=== PATIENT | female | born 1950 | race Caucasian/White ===

== ENCOUNTER 2017-03-18 14:51 | Inpatient (IN) | payer OTHER ==
[~2017-03-18] VITALS: Ht 165.1 cm; Wt 56.2 kg
[~2017-03-18 14:51] MED LIST: BUSP15TA70 PO; CLON1TAB3 PO; DULO60CA44 PO; VALA500T39 PO; WARF7.5T PO
[2017-03-18] MEDS ORDERED: ASPIRIN 81 MG CHEW PO STA (15:07)
[2017-03-18] MEDS ORDERED: DILTIAZEM BOLUS / DRIP IV STA (15:12)
[2017-03-18 15:23] LABS: BASO % 0.4 %; BASO ABS # 0.03 K/uL (0-0.2); COMPLETE YES; EOS % 0.7 %; HEMATOCRIT 46.1 % (37-47); IG% 0.1 %; LYMPH % 47.6 %; LYMPH ABS # 3.25 K/uL (1.2-3.4); MEAN CELL VOLUME 92.2 fL (80-100); MEAN CORPUSCULAR HEMOGLOBIN 32.8 pg (25-34); MEAN CORPUSCULAR HGB CONC 35.6 g/dl (32-36); MEAN PLATELET VOLUME 10.7 fL (7.4-10.4); MONO % 6.9 %; NEUT % 44.3 %; PLATELET COUNT 228 K/uL (130-400); WHITE BLOOD COUNT 6.83 K/uL (4.8-10.8)
[2017-03-18] MEDS ORDERED: DILTIAZEM HCL 5 MG/ML 5 ML VIAL IV ONE (15:30)
[2017-03-18] MEDS ORDERED: DILTIAZEM HCL INJ 125 MG in DEXTROSE 5% 100ML IV PRN (15:30)
[2017-03-18 15:32] LABS: INR 2.2 (0.9-1.1); PROTHROMBIN TIME (PATIENT) 24.8 SECONDS (9.0-12.0)
[2017-03-18] MEDS ORDERED: NRN300 PO (15:32)
[2017-03-18] MEDS ORDERED: FENTANYL CITRATE INJ 50 MCG/1 ML 2 ML VIAL IV STA (15:38)
[2017-03-18 15:39] LABS: BLOOD UREA NITROGEN 10 mg/dl (7-18); BUN/CREATININE RATIO 10.1 (10-20); CALCIUM 9.4 mg/dl (8.5-10.1); CARBON DIOXIDE 23 mmol/L (21-32); CHLORIDE 106 mmol/L (98-107); CREATININE 0.96 mg/dl (0.60-1.20); GLUCOSE 119 mg/dl (70-99); POTASSIUM 3.8 mmol/L (3.5-5.1); SODIUM 141 mmol/L (136-145)
--- NOTE | 2017-03-18 15:47 | DIAGNOSTIC IMAGING REPORT ---
CHEST ONE VIEW PORTABLE HISTORY: 66 years-old Female Chest Pain COMPARISON: Portable chest radiograph 11/14/2009 TECHNIQUE: Portable upright AP view of the chest FINDINGS: Cardiomediastinal and hilar silhouettes are within normal limits. There is mild biapical pleural parenchymal scarring without pneumothorax, pleural effusion or focal airspace consolidation. There is no overt pulmonary edema. Lungs are mildly hyperinflated The bones are grossly intact. IMPRESSION: Mild hyperinflation without acute cardiopulmonary process. The above report was generated using voice recognition software. It may contain grammatical, syntax or spelling errors. Electronically signed by: Keo Grant M.D. 03/18/2017 3:46 PM Dictated Date/Time: 03/18/2017 3:45 PM
[2017-03-18] MEDS ORDERED: NITROGLYCERIN 0.4 MG SL PER TAB CHARGE SL PRN ×2 (16:00→18:45)
[2017-03-18] MEDS ORDERED: OPTIRAY 320 IV PRN (16:30)
--- NOTE | 2017-03-18 16:40 | DIAGNOSTIC IMAGING REPORT ---
CT SCAN OF THE BRAIN WITHOUT IV CONTRAST CLINICAL HISTORY: Headache. COMPARISON STUDY: CT of the brain dated 11/17/2008. TECHNIQUE: Unenhanced axial CT scan of the brain is performed from the vertex to the skull base. CT DOSE: 537.48 mGy.cm FINDINGS: Brain parenchyma: There is minimal subcortical and periventricular microangiopathic change. There is no hemorrhage, mass effect, or evidence of acute territorial ischemia by CT criteria. Ren-white matter is preserved. No extra-axial fluid collection is seen. Ventricles, sulci, cisterns: Prominent secondary to involutional change. Intracranial vasculature: There is atherosclerotic calcification of the cavernous carotid arteries. Calvarium: Unremarkable. Sinuses and mastoids: The visualized paranasal sinuses are clear. The mastoid air cells are well pneumatized. Orbits: The bony orbits are grossly intact. IMPRESSION: There is no hemorrhage, mass effect, or evidence of acute territorial ischemia by CT criteria. Electronically signed by: David Ramos M.D. 03/18/2017 4:39 PM Dictated Date/Time: 03/18/2017 4:37 PM
--- NOTE | 2017-03-18 16:57 | DIAGNOSTIC IMAGING REPORT ---
CT ANGIOGRAM OF THE CHEST COMBO CLINICAL HISTORY: Tachycardia. COMPARISON STUDY: Chest x-ray dated 03/18/2017. Chest CT dated 05/15/2009. TECHNIQUE: Before and following the IV administration of 119 cc of Optiray 320, CT angiogram of the chest was performed from the thoracic inlet to the upper abdomen utilizing the dissection protocol. Images are reviewed in the axial, sagittal, and coronal planes. 3-D MIPS images are created and assessed. IV contrast was administered without complication. A dose lowering technique was utilized adhering to the principles of ALARA. CT DOSE: 476.92 mGy.cm FINDINGS: Thyroid: Imaged portions of the thyroid gland are normal in size and attenuation. Thoracic aorta: No intramural hematoma is seen on the unenhanced series. The thoracic aorta is normal in caliber and demonstrates standard 3-vessel arch anatomy. No dissection is seen. The arch vessels are widely patent. Pulmonary vasculature: The pulmonary trunk is normal in caliber. There are no filling defects identified in the main, lobar, or segmental pulmonary vessels to suggest pulmonary embolus. Heart: The heart is normal in size and configuration, and without pericardial effusion. Lungs and pleural spaces: There is biapical scarring. No airspace consolidation is seen typical for pneumonia. Trace pleural effusion is seen on the right. Small fat-containing Bochdalek hernias are identified. Foci of atelectasis versus scarring are seen in the lower lungs. A 4 mm pulmonary nodule is seen in the right upper lobe on image #89. This has been present dating back to 2008 and is of doubtful significance. Nodularity in the right mainstem bronchus likely represents secretions. The trachea and central airways are otherwise clear. Mediastinum: There is no mediastinal lymphadenopathy. Vera: Clear. Axillae: There is no axillary lymphadenopathy. Upper abdomen: Small hepatic cysts measure up to 13 mm. Partially visualized upper abdominal viscera is otherwise within normal limits. Skeletal structures: The skeletal structures are osteopenic. Arthritic change is present in the shoulders and thoracic spine. No lytic or blastic bony lesions are seen. IMPRESSION: 1. There is no aneurysm or dissection identified involving the thoracic aorta. 2. There is no evidence of pulmonary embolus in the main, lobar, or segmental pulmonary arteries. 3. There is no airspace consolidation typical for pneumonia. 4. Trace pleural fluid is seen at the right lung base. 5. Additional findings as above. Electronically signed by: David Ramos M.D. 03/18/2017 4:55 PM Dictated Date/Time: 03/18/2017 4:41 PM
[2017-03-18] MEDS ORDERED: ACETAMINOPHEN 325 MG TAB PO PRN (18:45)
[2017-03-18] MEDS ORDERED: ONDANSETRON INJ 2 MG/ML 2 ML VIAL IV PRN (18:45)
[2017-03-18] MEDS ORDERED: TIZA4CAP PO (18:52)
[2017-03-18] MEDS ORDERED: CETI10TA84 PO (18:52)
[2017-03-18] MEDS ORDERED: CYM/30 PO (18:52)
[2017-03-18] MEDS ORDERED: KLN5 PO (18:52)
[2017-03-18] MEDS ORDERED: ZNTT/150 PO (18:52)
[2017-03-18] MEDS ORDERED: KLN1X PO (18:52)
[2017-03-18] MEDS ORDERED: PRMVC PV (18:52)
[2017-03-18] MEDS ORDERED: CETIRIZINE HCL 10 MG TAB PO PRN (19:30)
[2017-03-18] MEDS ORDERED: RANITIDINE HCL 150 MG TAB PO PRN (19:30)
[2017-03-18] MEDS ORDERED: TRAMADOL HCL 50 MG TAB PO PRN (19:30)
[2017-03-18] MEDS ORDERED: GABAPENTIN 300 MG CAP PO ONE (20:00)
[2017-03-18 20:07] VITALS: BP 103/67; PULSE 66; TEMP 37; O2SAT 99; Ht 165.1 cm; Wt 56.2 kg
--- NOTE | 2017-03-18 20:11 | EMERGENCY ROOM VISIT NOTE ---
History Report prepared by Adamibdarwin: Edgard Narayanan Under the Supervision of: Dr. Abdiel Ford D.O. First contact with patient: 14:59 Chief Complaint: CARDIAC ASSESSMENT Stated Complaint: RACING HEART, FEEL LIKE GOING TO PASS OUT Nursing Triage Summary: Pt c/o headache, tightness in her neck and jaw, heart racing (history of tachycardia per patient), she feels hot and sweaty at times, timgly in both arms "and I feel scared". When asked where her headache was she states "in my neck into the back of my head and into my face". Pt states symptoms x 2 days, but worse today. States she only had coffee today and nothing else to eat or drink. Hx anxiety "but this feels different". History of Present Illness The patient is a 66 year old female who presents to the Emergency Room with complaints of intermittent crushing chest pain that began yesterday. She rates her discomfort as a 10/10 in severity. The patient states that she woke up this morning around 0730 with chest pain, shortness of breath, tachycardia, lightheadedness, a cold sensation in her face, a sore throat, neck pain, and a pounding headache. The patient describes her pain as a shooting pain from her head to her neck. She states that she typically has tachycardia intermittently, which was diagnosed by her PCP Dr. Larios, but states that the chest pain is not normal. The patient states that she took Tylenol and slept for an hour, but the symptoms persisted. She reports that she has a history of blood clots, which she takes Coumadin for. Source of History: patient Onset: yesterday Position: chest Symptom Intensity: Quality: other (crushing) Timing: intermittent Associated Symptoms: + headache, + sorethroat, + neck pain, + SOB Review of Systems See HPI for pertinent positives & negatives. A total of 10 systems reviewed and were otherwise negative. Past Medical & Surgical Medical Problems: (1) Atrial fibrillation with RVR (2) Bronchitis (3) Chest pain (4) History of blood clots (5) Hypotension (6) Pneumonia Family History FH: heart disease Hypertension Social History Smoking Status: Current Every Day Smoker Alcohol Use: none Drug Use: none Marital Status: single Housing Status: lives with family Occupation Status: unemployed Current/Historical Medications Scheduled Buspirone Hcl (Buspar), 15 MG PO BID Clonazepam (Clonazepam), 0.5 MG PO QAM Clonazepam (Clonazepam), 1 MG PO HS Duloxetine HCl (Cymbalta), 30 MG PO BID Estrogens, Conjugated (Premarin), 2 GM PV UD Gabapentin (Gabapentin), 300 MG PO TID Valacyclovir Hcl (Valtrex), 500 MG PO DAILY Warfarin Sodium (Coumadin), 7.5 MG PO [id number] Warfarin Sodium (Coumadin), 0.5 TAB PO WK Scheduled PRN Cetirizine (Zyrtec), 10 MG PO DAILY PRN for allergies Ranitidine (Zantac), 150 MG PO DAILY PRN for Dyspepsia Tizanidine (Zanaflex), 4 MG PO Q8 PRN for Muscle Spasms Allergies Coded Allergies: Tetanus Toxoid (Verified Allergy, Unknown, "SWELLING", 03/18/17) Meperidine (Verified Adverse Reaction, Intermediate, ITCHING, 03/18/17) Morphine (Verified Adverse Reaction, Intermediate, ITCHING, 03/18/17) Quetiapine (Verified Adverse Reaction, Unknown, Symptoms worsen, 03/18/17) Risperidone (Verified Adverse Reaction, Unknown, Symptoms worsen, 03/18/17) Physical Exam Vital Signs Date Time Temp Pulse Resp B/P (MAP) Pulse Ox O2 Delivery O2 Flow Rate FiO2 03/18/17 18:02 59 22 111/65 98 Room Air 03/18/17 17:00 58 18 116/76 98 Room Air 03/18/17 15:10 108 20 109/77 100 Room Air 03/18/17 15:03 137 03/18/17 15:02 98 Room Air 03/18/17 14:54 36.2 84 87/52 Physical Exam GENERAL: sitting up in bed, disheveled, holding chest, ill-appearing EYE EXAM: normal conjunctiva, PERRL and EOM's grossly intact OROPHARYNX: no exudate, no erythema, lips, buccal mucosa, and tongue normal and mucous membranes are moist NECK: supple, no nuchal rigidity, no adenopathy, non-tender LUNGS: Clear to auscultation. Normal chest wall mechanics HEART: Tachycardic. Irregularly irregular. no murmurs, S1 normal and S2 normal ABDOMEN: abdomen soft, non-tender, normo-active bowel sounds, no masses, no rebound or guarding. BACK: Back is symmetrical on inspection and there is no deformity, no midline tenderness, no CVA tenderness. SKIN: no rashes and no bruising UPPER EXTREMITIES: upper extremities are grossly normal. Radial pulses are equal bilaterally LOWER EXTREMITIES: No pitting edema. Calves are equal bilaterally. NEURO EXAM: Normal sensorium, cranial nerves II-XII grossly intact, normal speech, no gross weakness of arms, no gross weakness of legs. Gross sensation intact. Medical Decision & Procedures ER Provider Diagnostic Interpretation: Radiology results as stated below per my review and the radiologist's interpretation: CHEST ONE VIEW PORTABLE HISTORY: 66 years-old Female Chest Pain COMPARISON: Portable chest radiograph 11/14/2009 TECHNIQUE: Portable upright AP view of the chest FINDINGS: Cardiomediastinal and hilar silhouettes are within normal limits. There is mild biapical pleural parenchymal scarring without pneumothorax, pleural effusion or focal airspace consolidation. There is no overt pulmonary edema. Lungs are mildly hyperinflated The bones are grossly intact. IMPRESSION: Mild hyperinflation without acute cardiopulmonary process. The above report was generated using voice recognition software. It may contain grammatical, syntax or spelling errors. Electronically signed by: Keo Grant M.D. 03/18/2017 3:46 PM Dictated Date/Time: 03/18/2017 3:[address] SCAN OF THE BRAIN WITHOUT IV CONTRAST CLINICAL HISTORY: Headache. COMPARISON STUDY: CT of the brain dated 11/17/2008. TECHNIQUE: Unenhanced axial CT scan of the brain is performed from the vertex to the skull base. CT DOSE: 537.48 mGy.cm FINDINGS: Brain parenchyma: There is minimal subcortical and periventricular microangiopathic change. There is no hemorrhage, mass effect, or evidence of acute territorial ischemia by CT criteria. Ren-white matter is preserved. No extra-axial fluid collection is seen. Ventricles, sulci, cisterns: Prominent secondary to involutional change. Intracranial vasculature: There is atherosclerotic calcification of the cavernous carotid arteries. Calvarium: Unremarkable. Sinuses and mastoids: The visualized paranasal sinuses are clear. The mastoid air cells are well pneumatized. Orbits: The bony orbits are grossly intact. IMPRESSION: There is no hemorrhage, mass effect, or evidence of acute territorial ischemia by CT criteria. Electronically signed by: David Ramos M.D. 03/18/2017 4:39 PM Dictated Date/Time: 03/18/2017 4:[address] ANGIOGRAM OF THE CHEST COMBO CLINICAL HISTORY: Tachycardia. COMPARISON STUDY: Chest x-ray dated 03/18/2017. Chest CT dated 05/15/2009. TECHNIQUE: Before and following the IV administration of 119 cc of Optiray 320, CT angiogram of the chest was performed from the thoracic inlet to the upper abdomen utilizing the dissection protocol. Images are reviewed in the axial, sagittal, and coronal planes. 3-D MIPS images are created and assessed. IV contrast was administered without complication. A dose lowering technique was utilized adhering to the principles of ALARA. CT DOSE: 476.92 mGy.cm FINDINGS: Thyroid: Imaged portions of the thyroid gland are normal in size and attenuation. Thoracic aorta: No intramural hematoma is seen on the unenhanced series. The thoracic aorta is normal in caliber and demonstrates standard 3-vessel arch anatomy. No dissection is seen. The arch vessels are widely patent. Pulmonary vasculature: The pulmonary trunk is normal in caliber. There are no filling defects identified in the main, lobar, or segmental pulmonary vessels to suggest pulmonary embolus. Heart: The heart is normal in size and configuration, and without pericardial effusion. Lungs and pleural spaces: There is biapical scarring. No airspace consolidation is seen typical for pneumonia. Trace pleural effusion is seen on the right. Small fat-containing Bochdalek hernias are identified. Foci of atelectasis versus scarring are seen in the lower lungs. A 4 mm pulmonary nodule is seen in the right upper lobe on image #89. This has been present dating back to 2008 and is of doubtful significance. Nodularity in the right mainstem bronchus likely represents secretions. The trachea and central airways are otherwise clear. Mediastinum: There is no mediastinal lymphadenopathy. Vera: Clear. Axillae: There is no axillary lymphadenopathy. Upper abdomen: Small hepatic cysts measure up to 13 mm. Partially visualized upper abdominal viscera is otherwise within normal limits. Skeletal structures: The skeletal structures are osteopenic. Arthritic change is present in the shoulders and thoracic spine. No lytic or blastic bony lesions are seen. IMPRESSION: 1. There is no aneurysm or dissection identified involving the thoracic aorta. 2. There is no evidence of pulmonary embolus in the main, lobar, or segmental pulmonary arteries. 3. There is no airspace consolidation typical for pneumonia. 4. Trace pleural fluid is seen at the right lung base. 5. Additional findings as above. Electronically signed by: David Ramos M.D. 03/18/2017 4:55 PM Dictated Date/Time: 03/18/2017 4:41 PM Laboratory Results 03/18/17 15:10 Red Blood Count 5.00, Mean Corpuscular Volume 92.2, Mean Corpuscular Hemoglobin 32.8, Mean Corpuscular Hemoglobin Concent 35.6, Mean Platelet Volume 10.7, Neutrophils (%) (Auto) 44.3, Lymphocytes (%) (Auto) 47.6, Monocytes (%) (Auto) 6.9, Eosinophils (%) (Auto) 0.7, Basophils (%) (Auto) 0.4, Neutrophils # (Auto) 3.02, Lymphocytes # (Auto) 3.25, Monocytes # (Auto) 0.47, Eosinophils # (Auto) 0.05, Basophils # (Auto) 0.03 03/18/17 15:10 Test 03/18/17 15:10 03/18/17 15:14 White Blood Count 6.83 K/uL (4.8-10.8) Red Blood Count 5.00 M/uL (4.2-5.4) Hemoglobin 16.4 g/dL (12.0-16.0) Hematocrit 46.1 % (37-47) Mean Corpuscular Volume 92.2 fL (80-100) Mean Corpuscular Hemoglobin 32.8 pg (25-34) Mean Corpuscular Hemoglobin Concent 35.6 g/dl (32-36) Platelet Count 228 K/uL (130-400) Mean Platelet Volume 10.7 fL (7.4-10.4) Neutrophils (%) (Auto) 44.3 % Lymphocytes (%) (Auto) 47.6 % Monocytes (%) (Auto) 6.9 % Eosinophils (%) (Auto) 0.7 % Basophils (%) (Auto) 0.4 % Neutrophils # (Auto) 3.02 K/uL (1.4-6.5) Lymphocytes # (Auto) 3.25 K/uL (1.2-3.4) Monocytes # (Auto) 0.47 K/uL (0.11-0.59) Eosinophils # (Auto) 0.05 K/uL (0-0.5) Basophils # (Auto) 0.03 K/uL (0-0.2) RDW Standard Deviation 41.8 fL (36.4-46.3) RDW Coefficient of Variation 12.4 % (11.5-14.5) Immature Granulocyte % (Auto) 0.1 % Immature Granulocyte # (Auto) 0.01 K/uL (0.00-0.02) Prothrombin Time 24.8 SECONDS (9.0-12.0) Prothromb Time International Ratio 2.2 (0.9-1.1) Anion Gap 12.0 mmol/L (3-11) Est Creatinine Clear Calc Drug Dose 50.1 ml/min Estimated GFR () 71.4 Estimated GFR (Non- 61.6 BUN/Creatinine Ratio 10.1 (10-20) Calcium Level 9.4 mg/dl (8.5-10.1) Total Creatine Kinase 105 U/L (26-192) Creatine Kinase MB 1.0 ng/ml (0.5-3.6) Creatine Kinase MB Ratio 1.0 (0-3.0) Troponin I < 0.015 ng/ml (0-0.045) Thyroid Stimulating Hormone (TSH) 1.810 uIu/ml (0.300-4.500) Bedside Troponin I < 0.030 ng/ml (0-0.045) Laboratory results per my review. Medications Administered Medications (Trade) Dose Ordered Sig/Dequan Route Start Time Stop Time Status Last Admin Dose Admin Aspirin (Aspirin Chew) 324 mg NOW STAT PO 03/18/17 15:07 03/18/17 15:08 DC 03/18/17 15:18 324 MG Fentanyl Citrate (Fentanyl Inj) 25 mcg NOW STAT IV 03/18/17 15:38 03/18/17 15:39 DC 03/18/17 15:53 25 MCG Nitroglycerin (Nitrostat Tab) 0.4 mg Q5M PRN SL 03/18/17 16:00 03/18/17 19:47 DC 03/18/17 17:15 0.4 MG ECG Indication: chest pain Rate (beats per minute): 122 Rhythm: atrial fibrillation Findings: nonspecific-ST abn (Inferior), Q waves (Septal), ST elevation (V2), other (RBR ) Change: Repeat EKG shows Atrial Fibrillation with a rate of 115. There was RBR, an inferior ST abnormality, and septal q waves present. The T elevation was improved. ED Course ED COURSE: Vital signs were reviewed and showed hypotensive, tachycardic The patients medical record was reviewed The above diagnostic studies were performed and reviewed. ED treatments and interventions as stated above. 1502: The patient was evaluated in room B11. A complete history and physical examination was performed. 1507: Aspirin 324 mg PO. 1512: Diltiazem HCl 1 each IV. 1530: Diltiazem HCl 125 mg/Dextrose 125 ml @ 0 mls/hr IV, diltiazem HCl 10 mg IV. 1531: I discussed the patient's case with Dr. Huntley, Cardiology [facility]. He checked the patient's EKGs and recommends an echo. 1538: Fentanyl Injection 25 mcg IV. 1600: Nitroglycerin 0.4 mg SL. 1621: I reevaluated the patient and she is resting comfortably. 1708: I discussed the patient's case with Dr. Kc, [facility] Aviation Medicine Specialist. He understands that patient's condition and agrees to accept the patient. The patient will be further evaluated. Medical Decision Differential diagnoses includes but is not limited to acute coronary syndrome, myocardial infarction, pericarditis, pulmonary embolus, aortic dissection, pneumonia, pneumothorax, musculoskeletal, shingles, esophageal. Medication Reconciliation: I attest that I have personally reviewed the patient' s current medication list. Blood pressure screening: Patient was found to have normal blood pressure on screening and does not require follow-up. Patient is a 66-year-old female who presents the ER for chest pain associated with shortness of breath and a headache. Upon evaluation systolic blood pressures in the 70s. Her heart rates in the 150s. EKG shows A. fib with RVR with mild ST elevation in the septal leads. Fluids were given. Heart return done to low 100s. Systolic blood pressures improved to 110. She is given nitroglycerin with significant improvement of her pain. She was not given Cardizem. I discussed her case with interventional cardiology. They note that this is probably rate related. INR was therapeutic. CT dissection was performed and unremarkable. Troponin was negative. EKG improved significantly as the rate improved. She was monitored closely. She was admitted to internal medicine. Just prior to admission patient converted to normal sinus rhythm. She was feeling significantly better. Medication Reconcilliation Current Medication List: was personally reviewed by me Blood Pressure Screening Patient's blood pressure: Normal blood pressure Consults Time Called: 170 Consulting Physician: Esha Dickey Aviation Medicine Specialist Returned Call: [phone] I discussed the patient's case with Esha Dickey Aviation Medicine Specialist. He understands that patient's condition and agrees to accept the patient. The patient will be further evaluated. Additional Consults: Time Called: 1530 Consulted Physician: Dr. Huntley, Cardiology [facility] Returned Call: [phone] Additional Comments: I discussed the patient's case with Dr. Huntley, Cardiology [facility]. He checked the patient's EKGs and recommends an echo. Impression Primary Impression: Atrial fibrillation with RVR Additional Impressions: Hypotension Precordial chest pain Critical Care I have personally spent 35 minutes of critical care time in the direct management of this patient. This includes bedside care, interpretation of diagnostic studies, and testing, discussion with consultants, patient, and family members, and other required patient management activities. This 35 minutes is in excess of all separately billable procedures. Scribe Attestation The scribe's documentation has been prepared under my direction and personally reviewed by me in its entirety. I confirm that the note above accurately reflects all work, treatment, procedures, and medical decision making performed by me. Departure Information Dispostion Being Evaluated By Hospitalist Referrals Danita Robledo D.O. (PCP) Patient Instructions My [facility] Problem Qualifiers Additional Impressions: Hypotension Hypotension type: unspecified hypotension type Qualified Codes: I95.9 - Hypotension, unspecified
[2017-03-18] MEDS: BusPIRone 15 MG TAB PO SCH (20:32)
[2017-03-18] MEDS: DULOXETINE (CYMBALTA) 30 MG CAP PO SCH (20:32)
[2017-03-18] MEDS ORDERED: CLONAZEPAM 1 MG TAB PO SCH (21:00)
[2017-03-18 23:28] VITALS: BP 93/54; PULSE 59; TEMP 36.6; O2SAT 97
--- NOTE | 2017-03-18 23:55 | History and Physical ---
History & Physical Date & Time of Service: Mar 18, 2017 at 19:37 Chief Complaint: Racing Heart, Feel Like Going To Pass Out Primary Care Physician: Danita Robledo D.O. History of Present Illness Source: patient, clinic records This is a 66 y/o female with PMH of PE on Coumadin, s/p IVC filter, anxiety, tobacco abuse, and other problems listed below who presented to the ED with headache, chest pain, and palpitations. Patient reports chronic migraines and neck spasms which are more intense over past few weeks. She used to take Fioricet but it no longer works for her. Over past few days she was mostly resting and not eating much due to migraine. She reports a hx of "tachycardia" with intermittent palpitations for years, however palpitations were more severe over the past few days and felt different than usual. She states yesterday she had substernal chest pressure for most of the day. Pain was not related to exertion. Then this morning she was in severe pain from migraine/ neck spasms, so at 7 am drank coffee and took 2 extra strength Tylenol and tizanidine. Did not eat breakfast due to poor appetite. She took a nap for one hour then awoke with substernal chest pressure radiating to her anterior neck and "pounding" palpitations. There was associated diaphoresis, shortness of breath, mild lightheadedness, tingling in both arms. Patient drove herself to the ER, where she was found to be in Afib with RVR, then spontaneously converted to NSR. She was initially hypotensive to which resolved with 2 liters IVF's. Pt states the chest pain resolved before she was given nitro. She was also treated with aspirin 324 mg. Currently the headache is improving after eating dinner in the ER. She denies syncope, ACOSTA with climbing stairs, edema, or calf pain. No hx of CAD. Had neg stress test in 2007. No known hx of atrial fibrillation. Past Medical/Surgical History Medical Problems: (1) Anxiety Status: Chronic (2) Depression Status: Chronic (3) Pulmonary embolism Status: Chronic Surgical Problems: (1) S/P IVC filter Status: Chronic Family History FH: heart disease Hypertension Social History Smoking Status: Current Every Day Smoker (0.75 ppd) Alcohol Use: none Drug Use: none Marital Status: single Housing status: lives alone Occupational Status: unemployed Immunizations History of Influenza Vaccine: Yes History of Tetanus Vaccine?: Yes History of Pneumococcal: No History of Hepatitis B Vaccine: No Multi-Drug Resistant Organisms History of MDRO: No Allergies Coded Allergies: Tetanus Toxoid (Verified Allergy, Unknown, "SWELLING", 03/18/17) Meperidine (Verified Adverse Reaction, Intermediate, ITCHING, 03/18/17) Morphine (Verified Adverse Reaction, Intermediate, ITCHING, 03/18/17) Quetiapine (Verified Adverse Reaction, Unknown, Symptoms worsen, 03/18/17) Risperidone (Verified Adverse Reaction, Unknown, Symptoms worsen, 03/18/17) Home Medications Scheduled Buspirone Hcl (Buspar), 15 MG PO BID Clonazepam (Clonazepam), 0.5 MG PO QAM Clonazepam (Clonazepam), 1 MG PO HS Duloxetine HCl (Cymbalta), 30 MG PO BID Estrogens, Conjugated (Premarin), 2 GM PV UD Gabapentin (Gabapentin), 300 MG PO TID Valacyclovir Hcl (Valtrex), 500 MG PO DAILY Warfarin Sodium (Coumadin), 7.5 MG PO 6XWK Warfarin Sodium (Coumadin), 0.5 TAB PO WK Scheduled PRN Cetirizine (Zyrtec), 10 MG PO DAILY PRN for allergies Ranitidine (Zantac), 150 MG PO DAILY PRN for Dyspepsia Tizanidine (Zanaflex), 4 MG PO Q8 PRN for Muscle Spasms Review of Systems Ten systems reviewed and negative except as noted in HPI. Physical Exam Vital Signs Date Time Temp Pulse Resp B/P (MAP) Pulse Ox O2 Delivery O2 Flow Rate FiO2 03/18/17 18:59 67 18 98 03/18/17 18:02 59 22 111/65 98 Room Air 03/18/17 17:00 58 18 116/76 98 Room Air 03/18/17 15:10 108 20 109/77 100 Room Air 03/18/17 15:03 137 03/18/17 15:02 98 Room Air 03/18/17 14:54 36.2 84 87/52 General Appearance: WD/WN, no apparent distress, + pertinent finding (alert 66 y/o female, sitting up in bed eating dinner tray, no distress) Head: normocephalic, atraumatic Eyes: normal inspection, PERRL, EOMI, sclerae normal ENT: hearing grossly normal, pharynx normal Neck: supple, trachea midline Respiratory/Chest: lungs clear, normal breath sounds, no respiratory distress, no accessory muscle use Cardiovascular: regular rate, rhythm, no murmur Abdomen/GI: normal bowel sounds, non tender, soft Extremities/Musculoskelatal: no calf tenderness, no pedal edema Neurologic/Psych: alert, normal mood/affect, oriented x 3, + pertinent finding (no focal deficit on gross examination) Skin: normal color, warm/dry Diagnostics Laboratory Results Results Past 24 Hours Test 03/18/17 15:10 03/18/17 15:14 Range/Units White Blood Count 6.83 4.8-10.8 K/uL Red Blood Count 5.00 4.2-5.4 M/uL Hemoglobin 16.4 12.0-16.0 g/dL Hematocrit 46.1 37-47 % Mean Corpuscular Volume 92.2 80-100 fL Mean Corpuscular Hemoglobin 32.8 25-34 pg Mean Corpuscular Hemoglobin Concent 35.6 32-36 g/dl Platelet Count 228 130-400 K/uL Mean Platelet Volume 10.7 7.4-10.4 fL Neutrophils (%) (Auto) 44.3 % Lymphocytes (%) (Auto) 47.6 % Monocytes (%) (Auto) 6.9 % Eosinophils (%) (Auto) 0.7 % Basophils (%) (Auto) 0.4 % Neutrophils # (Auto) 3.02 1.4-6.5 K/uL Lymphocytes # (Auto) 3.25 1.2-3.4 K/uL Monocytes # (Auto) 0.47 0.11-0.59 K/uL Eosinophils # (Auto) 0.05 0-0.5 K/uL Basophils # (Auto) 0.03 0-0.2 K/uL RDW Standard Deviation 41.8 36.4-46.3 fL RDW Coefficient of Variation 12.4 11.5-14.5 % Immature Granulocyte % (Auto) 0.1 % Immature Granulocyte # (Auto) 0.01 0.00-0.02 K/uL Prothrombin Time 24.8 9.0-12.0 SECONDS Prothromb Time International Ratio 2.2 0.9-1.1 Sodium Level 141 136-145 mmol/L Potassium Level 3.8 3.5-5.1 mmol/L Chloride Level 106 98-107 mmol/L Carbon Dioxide Level 23 21-32 mmol/L Anion Gap 12.0 3-11 mmol/L Blood Urea Nitrogen 10 7-18 mg/dl Creatinine 0.96 0.60-1.20 mg/dl Est Creatinine Clear Calc Drug Dose 50.1 ml/min Estimated GFR () 71.4 Estimated GFR (Non- 61.6 BUN/Creatinine Ratio 10.1 10-20 Random Glucose 119 70-99 mg/dl Calcium Level 9.4 8.5-10.1 mg/dl Total Creatine Kinase 105 26-192 U/L Creatine Kinase MB 1.0 0.5-3.6 ng/ml Creatine Kinase MB Ratio 1.0 0-3.0 Troponin I < 0.015 0-0.045 ng/ml Thyroid Stimulating Hormone (TSH) 1.810 0.300-4.500 uIu/ml Bedside Troponin I < 0.030 0-0.045 ng/ml Diagnostic Radiology CHEST ONE VIEW PORTABLE- per radiology IMPRESSION: Mild hyperinflation without acute cardiopulmonary process. CT SCAN OF THE BRAIN WITHOUT IV CONTRAST- per radiology IMPRESSION: There is no hemorrhage, mass effect, or evidence of acute territorial ischemia by CT criteria. CT ANGIOGRAM OF THE CHEST COMBO- per radiology IMPRESSION: 1. There is no aneurysm or dissection identified involving the thoracic aorta. 2. There is no evidence of pulmonary embolus in the main, lobar, or segmental pulmonary arteries. 3. There is no airspace consolidation typical for pneumonia. 4. Trace pleural fluid is seen at the right lung base. 5. Additional findings as above. EKG 15:00- Atrial fibrillation with rapid ventricular response, 122 bpm, possible Septal infarct age undetermined, possible lateral infarct age undetermined- confirmed by cardiology 15:17- Atrial fibrillation with rapid ventricular response, 115 bpm, Rightward axis, Incomplete right bundle branch block, no significant change from prior EKG - confirmed by cardiology 15:39- Atrial fibrillation with premature ventricular or aberrantly conducted complexes, 92 bpm, Rightward axis, Incomplete right bundle branch block, no significant change from prior EKG- confirmed by cardiology 17:18- NSR, 60 bpm, rightward axis, nonspecific T wave abnormality in aVL, no ST abnormality Impression Assessment and Plan AF WITH RVR New onset; no prior dx of Afib Spontaneously converted to NSR Electrolytes and TSH wnl Check echo Anticoagulated on Coumadin for hx of PE (INR 2.2) No rate control meds needed at present Consult cardiology CHEST PAIN- resolved R/o ACS, possibly secondary to AF with RVR Last stress test in 2007- neg Initial troponin negative; EKG- nonspecific changes CXR- no acute cardiopulmonary findings; CT chest- no aneurysm or dissection, no PE Trend serial cardiac enzymes Check echo Nitro and aspirin 324 mg given in ER Add aspirin 81 mg daily Check fasting lipid panel Consult cardiology HYPOTENSION- resolved Resolved with IVF's given in ER Monitor BP MIGRAINE- improving CT head- no acute abnormalities Tramadol PRN HX PE S/P IVC FILTER Continue Coumadin and monitor INR DEPRESSION/ ANXIETY Continue home meds DVT PROPHYLAXIS On Coumadin FULL CODE DISPOSITION Admission telemetry Follows with Dr. Robledo for primary care Patient seen in collaboration with Dr. Kc. Please see his addendum. Attending Addendum Pt was seen and examined. Agreed with Samantha MANSFIELD physical exam, assessment and plan. 66 y/o female with PMH of PE on Coumadin, s/p IVC filter, anxiety, tobacco abuse who presented to the ED with c/o headache, chest pain, and palpitations. Patient reports chronic migraines and neck spasms which are more intense over past few weeks associated with intermittent palpitation. She was found to be in Afib in the ER. General- No acute distress Head- atraumatic Eyes- PERRL, EOMI ENT- oropharynx clear Neck- supple, no JVD Lungs- clear to auscultation Heart- regular rhythm Abdomen- normal bowel sounds, soft Extremities- no calf tenderness Neuro- alert, oriented x 3; PERRL, EOMI; no facial palsy A/p AF WITH RVR New onset; no prior dx of Afib Was started on cardizem drip in the ER Convert back to NSR HR in the 50's now Electrolytes and TSH wnl Check echo in Anticoagulated on Coumadin for hx of PE (INR 2.2) Continue monitor in tele Consult cardiology Lab, imaging and EKG reviewed Please refer to Samantha MANSFIELD documentation for other problems. Megan Kc MD VTE Prophylaxis VTE Risk Assessment Done? Y/N: Yes Risk Level: High Given or contraindicated: Warfarin (Coumadin)
[2017-03-19 03:34] LABS: INR 2.5 (0.9-1.1); PROTHROMBIN TIME (PATIENT) 27.7 SECONDS (9.0-12.0)
[2017-03-19 03:44] LABS: CHOLESTEROL 195 mg/dl (0-200); CHOLESTEROL/HDL RATIO 3.2; CKMB/CK RATIO 1.5 (0-3.0); HDL CHOLESTEROL 61 mg/dl; LDL CHOLESTEROL CALCULATED 114 mg/dl; TRIGLYCERIDES 101 mg/dl (0-150); VERY LOW DENSITY LIPOPROT CALC 20 mg/dl
[2017-03-19 04:02] VITALS: BP 107/62; PULSE 53; TEMP 36.6; O2SAT 98
[2017-03-19 04:03] LABS: HEMATOCRIT 34.9 % (37-47); MEAN CELL VOLUME 91.4 fL (80-100); MEAN CORPUSCULAR HEMOGLOBIN 32.5 pg (25-34); MEAN CORPUSCULAR HGB CONC 35.5 g/dl (32-36); MEAN PLATELET VOLUME 9.9 fL (7.4-10.4); PLATELET COUNT 153 K/uL (130-400); RED BLOOD COUNT 3.82 M/uL (4.2-5.4); WHITE BLOOD COUNT 4.36 K/uL (4.8-10.8)
[2017-03-19] MEDS: BusPIRone 15 MG TAB PO SCH (07:12)
[2017-03-19] MEDS: DULOXETINE (CYMBALTA) 30 MG CAP PO SCH (07:12)
[2017-03-19 07:17] VITALS: BP 121/73; PULSE 57; TEMP 36.8; O2SAT 97
[2017-03-19 08:04] VITALS: O2SAT 97
[2017-03-19] MEDS ORDERED: GABAPENTIN 300 MG CAP PO SCH (09:00)
[2017-03-19] MEDS ORDERED: CLONAZEPAM 0.5 MG TAB PO SCH (09:00)
[2017-03-19] MEDS ORDERED: ASPIRIN 81 MG ECTAB PO SCH (09:00)
--- NOTE | 2017-03-19 09:40 | ECHOCARDIOGRAM REPORT ---
*NOTICE TO RECEIVING [employer] This information is strictly Confidential and protected under [place] law. [place] law prohibits you from making any further disclosure of this information unless further disclosure is expressly permitted by the written consent of the person to whom it pertains or is authorized by law. A general authorization for the release of medical or other information is not sufficient for this purpose. Hospital accepts no responsibility if the information is made available to any other person, INCLUDING THE PATIENT. Interpretation Summary * Name: CORKY TALBERT Study Date: 03/19/2017 06:44 AM BP: 107/62 mmHg * Patient Location: C.2T\S\S229\S\1 HR: 53 * : 1950 (M/d/yyyy) Gender: Female Height: 65 in * Age: 66 yrs Ethnicity: [place] Weight: 121 lb * Ordering Physician: Abdiel Ford * Referring Physician: Self, Referred * Performed By: Jameson Ward RCS * * Reason For Study: Chest Pain * BSA: 1.6 m2 * -- Conclusions -- * The left ventricle is normal in size. * There is normal left ventricular wall thickness. * The left ventricular wall motion is normal. * Ejection Fraction = 55-60%. * There is mild mitral regurgitation. * There is moderate tricuspid regurgitation. * Doppler findings do not suggest pulmonary hypertension. Procedure Details * A complete two-dimensional transthoracic echocardiogram was performed (2D, M-mode, Doppler and color flow Doppler). Left Ventricle * The left ventricle is normal in size. * There is normal left ventricular wall thickness. * Left ventricular systolic function is normal. * Ejection Fraction = 55-60%. * The left ventricular wall motion is normal. Right Ventricle * The right ventricle is normal in size and function. Atria * The left atrial size is normal. * Right atrial size is normal. * No ASD detected; PFO is not assessed. Mitral Valve * The mitral valve anatomy is normal. * There is no mitral valve stenosis. * There is mild mitral regurgitation. Tricuspid Valve * The tricuspid valve anatomy is normal. * There is no tricuspid stenosis. * There is moderate tricuspid regurgitation. * Doppler findings do not suggest pulmonary hypertension. Aortic Valve * The aortic valve is trileaflet. * No hemodynamically significant valvular aortic stenosis. * No aortic regurgitation is present. Pulmonic Valve * The pulmonic valve is not well visualized. Great Vessels * The aortic root is normal size. Pericardium/Pleural * There is no pericardial effusion. Great Vessels * Normal inferior vena cava diameter and respiratory variation suggests normal central venous pressure. MMode 2D Measurements and Calculations IVSd 0.88 cm IVSs 1.1 cm LVIDd 3.4 cm LVIDs 2.1 cm LVPWd 0.90 cm LVPWs 1.2 cm IVS/LVPW 0.99 FS 37.4 % EDV(Teich) 48.1 ml ESV(Teich) 15.1 ml EF(Teich) 68.6 % EDV(cubed) 39.9 ml ESV(cubed) 9.8 ml EF(cubed) 75.5 % % IVS thick 26.5 % % LVPW thick 31.6 % LV mass(C)d 84.2 grams LV mass(C)dI 52.7 grams/m\S\2 LV mass(C)s 65.1 grams LV mass(C)sI 40.8 grams/m\S\2 CO(Teich) 1.7 l/min CI(Teich) 1.1 l/min/m\S\2 SV(Teich) 33.0 ml SI(Teich) 20.6 ml/m\S\2 CO(cubed) 1.6 l/min CI(cubed) 0.98 l/min/m\S\2 SV(cubed) 30.2 ml SI(cubed) 18.9 ml/m\S\2 Ao root diam 2.5 cm Ao root area 5.0 cm\S\2 ACS 1.3 cm LA dimension 2.5 cm LA/Ao 0.99 LVAd ap4 23.3 cm\S\2 LVLd ap4 7.9 cm EDV(MOD-sp4) 56.0 ml LVAs ap4 14.4 cm\S\2 LVLs ap4 6.5 cm ESV(MOD-sp4) 26.0 ml EF(MOD-sp4) 53.6 % LVAd ap2 24.5 cm\S\2 LVLd ap2 8.1 cm EDV(MOD-sp2) 61.0 ml LVAs ap2 12.9 cm\S\2 LVLs ap2 6.5 cm ESV(MOD-sp2) 21.0 ml EF(MOD-sp2) 65.6 % CO(MOD-sp4) 1.6 l/min CI(MOD-sp4) 0.98 l/min/m\S\2 SV(MOD-sp4) 30.0 ml SI(MOD-sp4) 18.8 ml/m\S\2 CO(MOD-sp2) 2.1 l/min CI(MOD-sp2) 1.3 l/min/m\S\2 SV(MOD-sp2) 40.0 ml SI(MOD-sp2) 25.0 ml/m\S\2 Doppler Measurements and Calculations MV E max norma 78.5 cm/sec MV A max norma 44.9 cm/sec MV E/A 1.7 MV P1/2t max norma 100.4 cm/sec MV P1/2t 82.5 msec MVA(P1/2t) 2.7 cm\S\2 MV dec slope 356.3 cm/sec\S\2 MV dec time 0.25 sec Ao V2 max 115.6 cm/sec Ao max PG 5.3 mmHg Ao max PG (full) 2.4 mmHg LV V1 max PG 3.0 mmHg LV V1 max 85.9 cm/sec PA V2 max 74.1 cm/sec PA max PG 2.2 mmHg PI max norma 136.5 cm/sec PI max PG 7.5 mmHg PI dec slope 185.6 cm/sec\S\2 PI P1/2t 215.4 msec TR max norma 238.0 cm/sec
[2017-03-19 12:03] VITALS: O2SAT 97
--- NOTE | 2017-03-19 12:11 | Discharge Instructions ---
Discharge Instructions Date of Service Mar 19, 2017. Admission Reason for Admission: Atrial Fibrillation W/ Rvr, Chest Pain,Hypotension Discharge Discharge Diagnosis / Problem: lone afib, atypical chest pain, migraines Discharge Goals Goal(s): Improve function, Prevent Disease Progression Activity Recommendations Activity Limitations: per Instructions/Follow-up section . Instructions / Follow-Up Instructions / Follow-Up Please cont all medications as instructed. I recommend working with primary care physician (PCP) on possible consideration of Botox injections for migraine treatment. This will require a referral to Neurology. Also, please have a conversation with PCP regarding how the Zanaflax is doing for you in lieu of other alternatives. Please follow-up with the investigator welfare who saw you in the hospital, Dr. Flex Boyer, as he instructed as outpatient. As we discussed, continuing Coumadin helps with stroke risk reduction if the atrial fibrillation rhythm were to occur. You have been scheduled for follow-up with Dr. Robledo. Your appointment with her is scheduled for 03/26 @ 11:15am. Please bring all paperwork from this hospitalization with you to the appointment. It was a pleasure taking care of you! Call if you have any questions or problems. You can reach a [facility] hospitalist on duty at [facility] 24 hours a day by calling [phone]. Take care of yourself. Evie Kay DO [facility] Hospitalist Current Hospital Diet Patient's current hospital diet: AHA Diet (Heart Healthy) Discharge Diet Recommended Diet: Regular Diet Pending Studies Studies pending at discharge: no Laboratory Results Lipid Panel Test 03/19/17 02:56 Range/Units Triglycerides Level 101 0-150 mg/dl Cholesterol Level 195 0-200 mg/dl HDL Cholesterol 61 mg/dl Cholesterol/HDL Ratio 3.2 LDL Cholesterol, Calculated 114 mg/dl Medical Emergencies . Who to Call and When: Medical Emergencies: If at any time you feel your situation is an emergency, please call 911 immediately. . Non-Emergent Contact Non-Emergency issues call your: Primary Care Provider . . "Provider Documentation" section prepared by Evie Kay. . VTE Core Measure Inpt VTE Proph given/why not?: Warfarin (Coumadin)
--- NOTE | 2017-03-19 12:12 | CARDIOLOGY CONSULTATION ---
DATE OF CONSULTATION: 03/19/2017 DATE OF CONSULTATION: 03/19/2017. CONSULTATION REQUESTED BY: Samantha Trevino PA-C. REASON FOR CONSULTATION: Atrial fibrillation with rapid ventricular response. HISTORY OF PRESENT ILLNESS: Ms. Carroll is a very pleasant 66-year-old woman who presented to [facility] with a complaint of palpitations. She states that for the last several weeks she has been having significantly worsening of her chronic neck pain and migraines; however, approximately 3 days ago she started noticing that her heart was racing in her chest. Along with this racing sensation she would feel a pounding sensation in her chest as well as some fullness in her neck. She would also get significantly lightheaded with this from time to time so when symptoms worsened, she came into the Emergency Department. Upon presentation, she was found to be in atrial fibrillation with rapid ventricular response and she spontaneously converted to normal sinus rhythm on her own. After converting she was a little hypotensive; however, her blood pressure responded to 2 liters of IV fluids and afterwards she states that she felt great. Currently, she has no complaints and she is very anxious to be discharged to home as soon as possible. Of note, medical records from 2009 showed that she did have an episode of atrial fibrillation at that time, however the patient does not remember this. She has not seen a lodging manager in followup since then. She has been on chronic Coumadin for significant pulmonary emboli. PAST SURGICAL HISTORY: 1. Breast biopsy. 2. Upper endoscopy. 3. IVC filter placement. MEDICAL ILLNESSES: 1. Paroxysmal atrial fibrillation with a KATY score of 0. 2. History of PE, on chronic Coumadin therapy. 3. Deep venous thrombosis status post IVC filter placement. 4. Osteoporosis. 5. Depression. 6. Anxiety. FAMILY HISTORY: Noncontributory. SOCIAL HISTORY: The patient is a lifelong smoker and continues to smoke half pack a day. Denies any alcohol or recreational drug use. REVIEW OF SYSTEMS: As per HPI, all other review of systems reviewed and negative at this time. ALLERGIES: 1. MEPERIDINE. 2. MORPHINE. 3. QUETIAPINE. 4. RISPERIDONE 5. TETANUS TOXOID. MEDICATIONS AN OUTPATIENT: 1. Coumadin as directed by the Coumadin clinic. 2. Valacyclovir daily. 3. Premarin cream. 4. Klonopin b.i.d. 5. Flonase daily. 6. Tizanidine as needed. 7. Fioricet as needed. PHYSICAL EXAMINATION: VITALS: Temperature 36.8, pulse 57, respiratory rate 12, blood pressure 121/73. GENERAL: Awake, alert, oriented x3 in no acute distress. HEAD, EYES, EARS, NOSE, AND THROAT: Normocephalic, atraumatic. Pupils equal, round, and reactive to light and accommodation. Extraocular muscles intact. Anicteric sclerae. Moist mucous membranes. NECK: No JVD, no bruit. CARDIOVASCULAR: Regular. No S4. Normal S1 and S2. No S3. No murmurs, rubs or gallops. PULMONARY: Clear to auscultation bilaterally. No rales, rhonchi, or wheezing. ABDOMEN: Bowel sounds x4, soft. No rebound, guarding, tenderness. No organomegaly. EXTREMITIES: No clubbing, cyanosis or edema. +2 pedal pulses bilaterally. SKIN: Warm and dry. TEST RESULTS: A 12-lead EKG upon presentation in the Emergency Department independently reviewed at this time shows atrial fibrillation with rapid ventricular response at 122 beats per minute. Follow-up EKG from 03/19/2017, now shows sinus bradycardia at 55 beats per minute. A 2D echocardiogram performed today was read as normal LV chamber size and wall thickness, normal LV systolic function, EF 55-60%, mild mitral regurgitation, moderate tricuspid regurgitation without pulmonary hypertension, normal left atrial sounds. IMPRESSION: 1. Paroxysmal atrial fibrillation with a KATY score of 0, spontaneously converted to normal sinus rhythm. 2. History of pulmonary embolism on chronic Coumadin therapy. 3. Mild mitral regurgitation. 4. Normal left ventricular systolic function, ejection fraction 55-60%. RECOMMENDATIONS: It was my pleasure to see Ms. Carroll in consultation today. The pathophysiology and treatment options for atrial fibrillation were discussed with the patient at great lengths. She was counseled that she was on Coumadin therapy and this would help reduce her risk of stroke should she go back in atrial fibrillation. Unfortunately for rate or rhythm control I am unable to add any medications at this time given her relative bradycardia, so I believe the most prudent course of action would be to have her follow up with me as an outpatient in 3 months. In the meantime, she was counseled that should she go back into atrial fibrillation she should present to the nearest Emergency Room. At that point, I would recommend initiation of flecainide therapy and then likely pill in the pocket strategy again given her resting bradycardia. Otherwise, her Coumadin should be continued and she should continue followup with Coumadin clinic as she has, otherwise it is okay to discharge her from a cardiac standpoint.
--- NOTE | 2017-03-19 12:27 | Discharge Summary ---
Discharge Summary Date of Service Mar 19, 2017. Discharge Summary Admission Date: Mar 18, 2017 at 18:16 Discharge Date: Mar 19, 2017 Discharge Disposition: Home Principal Diagnosis: 1. New-onset lone atrial fibrillation with spontaneous conversion to sinus rhythm 2. Atypical chest pain-resolved 3. Chronic migraines 4. Tension headaches 5. Neck muscle spasms 6. Hypotension-resolved 7. H/o PE s/p IVC filter and on lifelong coumadin 8. Depression/Anxiety Procedures: TTE: The left ventricle is normal in size. * There is normal left ventricular wall thickness. * The left ventricular wall motion is normal. * Ejection Fraction = 55-60%. * There is mild mitral regurgitation. * There is moderate tricuspid regurgitation. * Doppler findings do not suggest pulmonary hypertension. Vaccinations: None. Consultations: Cardiology-Flex Boyer DO Pending Studies/Follow-Up: see instructions below Medication Reconciliation Continued Medications: Buspirone Hcl (Buspar) 15 Mg Tab 15 MG PO BID, TAB Cetirizine (Zyrtec) 10 Mg Tab 10 MG PO DAILY PRN for allergies, TAB Clonazepam (Clonazepam) 0.5 Mg Tab 0.5 MG PO QAM Clonazepam (Clonazepam) 1 Mg Tab 1 MG PO HS Duloxetine HCl (Cymbalta) 30 Mg Cap 30 MG PO BID for 30 Days, #60 CAP 5 Refills Estrogens, Conjugated (Premarin) 14 Appln/30 Gm Cr 2 GM PV UD Insert one applicatorful (2 grams) vaginally at bedtime 1-3 times per week as directed. Gabapentin (Gabapentin) 300 Mg Cap 300 MG PO TID Ranitidine (Zantac) 150 Mg Tab 150 MG PO DAILY PRN for Dyspepsia, TAB Valacyclovir Hcl (Valtrex) 500 Mg Tab 500 MG PO DAILY, TAB Warfarin Sodium (Coumadin) 7.5 Mg Tab 7.5 MG PO 6XWK, TAB TAKE 7.5 MG EVERY SATURDAY,SATURDAY,SATURDAY,SATURDAY,SATURDAY AND SATURDAY OR OTHERWISE DIRECTED TO TAKE BY ANTICOAGULATION CLINIC/MD. Warfarin Sodium (Coumadin) 7.5 Mg Tab 0.5 TAB PO WK, TAB TAKE 3.75MG(0.5 TAB) EVERY SATURDAY OR OTHERWISE DIRECTED TO TAKE BY ANTICOAGULATION CLINIC/MD. Discontinued Medications: Tizanidine (Zanaflex) 4 Mg Cap 4 MG PO Q8 PRN for Muscle Spasms, CAP Admission Information HPI (per Admitting provider): This is a 66 y/o female with PMH of PE on Coumadin, s/p IVC filter, anxiety, tobacco abuse, and other problems listed below who presented to the ED with headache, chest pain, and palpitations. Patient reports chronic migraines and neck spasms which are more intense over past few weeks. She used to take Fioricet but it no longer works for her. Over past few days she was mostly resting and not eating much due to migraine. She reports a hx of "tachycardia" with intermittent palpitations for years, however palpitations were more severe over the past few days and felt different than usual. She states yesterday she had substernal chest pressure for most of the day. Pain was not related to exertion. Then this morning she was in severe pain from migraine/ neck spasms, so at 7 am drank coffee and took 2 extra strength Tylenol and tizanidine. Did not eat breakfast due to poor appetite. She took a nap for one hour then awoke with substernal chest pressure radiating to her anterior neck and "pounding" palpitations. There was associated diaphoresis, shortness of breath, mild lightheadedness, tingling in both arms. Patient drove herself to the ER, where she was found to be in Afib with RVR, then spontaneously converted to NSR. She was initially hypotensive to which resolved with 2 liters IVF's. Pt states the chest pain resolved before she was given nitro. She was also treated with aspirin 324 mg. Currently the headache is improving after eating dinner in the ER. She denies syncope, ACOSTA with climbing stairs, edema, or calf pain. No hx of CAD. Had neg stress test in 2007. No known hx of atrial fibrillation. Physical Exam (per Admitting): General Appearance: WD/WN, no apparent distress, + pertinent finding (alert 66 y/o female, sitting up in bed eating dinner tray, no distress) Head: normocephalic, atraumatic Eyes: normal inspection, PERRL, EOMI, sclerae normal ENT: hearing grossly normal, pharynx normal Neck: supple, trachea midline Respiratory/Chest: lungs clear, normal breath sounds, no respiratory distress, no accessory muscle use Cardiovascular: regular rate, rhythm, no murmur Abdomen/GI: normal bowel sounds, non tender, soft Extremities/Musculoskelatal: no calf tenderness, no pedal edema Neurologic/Psych: alert, normal mood/affect, oriented x 3, + pertinent finding (no focal deficit on gross examination) Skin: normal color, warm/dry Hospital Course 66-year-old female who presents the ER for chest pain associated with shortness of breath and a headache. In the ER, her systolic pressure was in the 70s and atrial fibrillation was seen which was a new diagnosis for her with a rate in the 150s. She also had some mild ST elevation in the septal leads. Blood pressure normalized with 2L IVF and HR decreased to the low 100s. She was given nitro with improvement in her pain. Cardizem was ordered but not given as the rate improved with IVF. INR was noted to be therapeutic. CT dissection was unremarkable for acute pathology including no PE, and her EKG improved as the rate improved. Just prior to going to the floor she spontaneously converted to a sinus rhythm. She was admitted to telemetry overnight and serial cardiac enzymes were drawn and were negative. Her pain did not return although she did report continued issues with her migraines. Side effects of tizanidine were briefly reviewed and she mentioned that it wasn't much help for her headaches or neck spasms over the past month. Cardiology evaluated the patient in the morning and felt she was stable for discharge without further cardiac workup. An TTE had been performed and was within normal limits with some noted valve pathology that was not severe (mod TR). No ASD or PFO was noted and LV function was normal. TSH was also normal. On day of discharge, she was ambulatory, mentating well and asking to leave to get home. She was tolerating PO and was still in sinus rhythm without any symptoms reported. Physical exam was normal. Telemetry was reviewed and patient remained in sinus rhythm overnight. She was discharged in stable condition with close PCP follow- up and recommendations to consider alternative therapies for her migraines such as a referral to Neurology for consideration of Botox treatment. Pain Management may also be another consideration. Total time spent on discharge = 60 minutes This includes examination of the patient, discharge planning, medication reconciliation, and communication with other providers. Discharge Instructions Discharge Instructions Date of Service Mar 19, 2017. Admission Reason for Admission: Atrial Fibrillation W/ Rvr, Chest Pain,Hypotension Discharge Discharge Diagnosis / Problem: lone afib, atypical chest pain, migraines Discharge Goals Goal(s): Improve function, Prevent Disease Progression Activity Recommendations Activity Limitations: per Instructions/Follow-up section . Instructions / Follow-Up Instructions / Follow-Up Please cont all medications as instructed. I recommend working with primary care physician (PCP) on possible consideration of Botox injections for migraine treatment. This will require a referral to Neurology. Also, please have a conversation with PCP regarding how the Zanaflax is doing for you in lieu of other alternatives. Please follow-up with the medical scribe who saw you in the hospital, Dr. Flex Boyer, as he instructed as outpatient. As we discussed, continuing Coumadin helps with stroke risk reduction if the atrial fibrillation rhythm were to occur. You have been scheduled for follow-up with Dr. Robledo. Your appointment with her is scheduled for 03/26 @ 11:15am. Please bring all paperwork from this hospitalization with you to the appointment. It was a pleasure taking care of you! Call if you have any questions or problems. You can reach a [facility] hospitalist on duty at [facility] 24 hours a day by calling [phone]. Take care of yourself. Evie Kay, DO [facility] Additional Copies To Danita Robledo D.O.
[2017-03-19 12:33] VITALS: BP 121/73; PULSE 57; TEMP 36.8; O2SAT 97
[2017-03-19] MEDS ORDERED: WARFARIN SOD 7.5 MG TAB PO SCH (16:00)
[2017-03-20] MEDS ORDERED: WARFARIN SOD 1.25 MG TAB PO SCH (16:00)
== END 2017-03-19 12:48 | disposition home or self-care (01) | DRG 310 ==
LOC: C.EDB 14:52 → C.2T 18:16 → ENRESERV 18:45
PROVIDERS: ADMIT Internal Medicine; ATTEND Hospitalist
DX: I48.0 Paroxysmal atrial fibrillation (principal); F17.210 Nicotine dependence, cigarettes, uncomplicated; Z79.01 Long term (current) use of anticoagulants; Z86.718 Personal history of other venous thrombosis and embolism; I95.9 Hypotension, unspecified; F41.8 Other specified anxiety disorders; G43.909 Migraine, unspecified, not intractable, without status migrainosus; G44.209 Tension-type headache, unspecified, not intractable; M62.838 Other muscle spasm; R07.89 Other chest pain; M81.0 Age-related osteoporosis without current pathological fracture; Z96.89 Presence of other specified functional implants; Z86.711 Personal history of pulmonary embolism

== ENCOUNTER 2020-03-22 15:00 | Inpatient (IN) ==
--- OUTSIDE RECORDS SUMMARY | 2020-03-22 15:03 | External Medical Summary | Continuity of Care Document ---
:1950 Author Name Verenice Davis, Provider Address Unavailable Unavailable , Care Team Providers Name Role Phone Unavailable Unavailable Unavailable MAINALI, MAI Unavailable Unavailable Unavailable Unavailable Unavailable Problems Intractable migraine with aura (346.01) (G43.119) Allergies and Adverse Reactions Levaquin TABS (Allergy) morphine (Allergy) Reaction: Hives tetanus immune globulin (Allergy) Reacti on: Anaphylaxis tiZANidine HCl TABS (Adverse Event) Reac tion: Tachycardia Medications Amitriptyline HCl - 25 MG Oral Tablet; TAKE 1 TABLET AT BEDT FRACISCO. , M.D. Refills: 0 Calcium Carbonate-Vitamin D 500-400 MG-U NIT Oral Tablet; Take 1 tablet twice daily , M.D. Refills: 0 valACYclovir HCl - 500 MG Oral Tablet; TAKE 1 TABLET DAILY. , M.D. Refills: 0 Gabapentin 300 MG Oral Capsule; TAKE 1 CAPSULE 3 times daily , M.D. Quantity: 90 Refills: 5 Warfarin Sodium 7.5 MG Oral Tablet; TAKE 7.5 MG, SUN, TUE AND THUR ; TAKE 15 MG ALL OTHER DAYS. , M.D. Refills: 0 clonazePAM 1 MG Oral Tablet; TAKE 1 TABLET AT BEDTIME. , M.D . Quantity: 30 Refills: 5 clonazePAM 0.5 MG Oral Tablet; Take 1 tablet daily , M.D. Refills: 0 DULoxetine HCl - 30 MG Oral Capsule Natalee yed Release Particles; TAKE 1 CAPSULE TWICE DAILY. , M.D. Refills: 0 Premarin 0.625 MG/GM Vaginal Cream; INSE RT 2 GRAM INTRAVAGINALLY. 1-3 TIMES PER WEEK. , M.D. Refills: 0 Procedures Procedures not documented Immunizations Immunizations not documented Social History - Smoking Status Smokes tobacco daily Plan of Treatment Planned Observations Planned Goals not documented Results No Known Results Results not documented
[2020-03-22] MEDS ORDERED: dilTIAZem HCL 125 MG in DEXTROSE 5% 100 ML IV SCH (15:15)
[2020-03-22] MEDS ORDERED: dilTIAZem HCl 5 MG/ML 5 ML VIAL IV STA (15:15)
[2020-03-22] MEDS ORDERED: CEFEPIME 2,000 MG/20 ML VIAL IV STA (15:15)
[2020-03-22] MEDS ORDERED: STAT IV Infusion **Titration per Protocol STA (15:15)
[2020-03-22] MEDS ORDERED: SODIUM CHLORIDE 0.9% 1000ML 500 ML IV ONE (15:15)
[2020-03-22] MEDS ORDERED: dilTIAZem HCl 5 MG/ML 5 ML VIAL IV ONE (15:16)
[2020-03-22] MEDS ORDERED: ALBUTEROL HFA 8 GM INHALER INH ONE (15:18)
--- NOTE | 2020-03-22 15:23 | Emergency Department Note ---
Impression & Plan Acute respiratory distress, Pneumonia, Atrial fibrillation with RVR, Acute dehydration ED Provider Note NAME: CORKY TALBERT AGE: 69 SEX: F : 1950 ARRIVES VIA: Ambulance INFORMANT: [Patient][ems] ED PROVIDER(S): [David Krueger MD] CHIEF COMPLAINT: Short of breath HISTORY OF PRESENT ILLNESS: The patient is a 69-year-old female who has not felt well for just over 2 weeks. Every day, things have been worsening. She has had a fever, some diarrhea, some rhinorrhea, some nausea, some chest pressure that is moderate in severity. She has felt her heart race at times. She has been short of breath especially with exertion. There has been a dry cough which has become a wet cough. She hears wheezing and rattling in her lungs. There have been no known coronavirus exposures. The patient carries a history of A. fib. No history of coronary disease or of CHF. The patient presents by EMS, in route, she received some IV fluids. The patient's chest pressure does not radiate. It is always present. She is not sure if it is from her lungs or from her racing heart REVIEW OF SYSTEMS: See HPI for pertinent positives and negatives. A total of ten systems were reviewed and were otherwise negative. PMHx/PSHx: See Below SOCIAL HISTORY: See Below. PHYSICAL EXAM: GENERAL: Patient is in moderate respiratory distress. HEENT: No acute trauma, normocephalic atraumatic, mucous membranes dry, no nasal congestion, no scleral icterus. NECK: No stridor, no adenopathy, no meningismus, trachea is midline. LUNGS: Moderate respiratory distress, speaks in short sentences. Increased respiratory rate. No obvious wheeze. HEART: Tachycardic and irregular, equal pulses in both upper extremities. ABDOMEN: Soft, nontender, bowel sounds positive, no hernias, no peritonitis. EXTREMITIES: No cyanosis or edema, full range of motion of all the joints wit hout pain or difficulty, no signs for acute trauma. NEUROLOGIC: Oriented x 3, no acute motor or sensory deficits, no focal weakness. SKIN: No rash, no jaundice, no diaphoresis. Seems pale. DIFFERENTIAL DIAGNOSIS: Sepsis, UTI, pneumonia, metabolic, electrolyte abnormalities, coronavirus, bronchitis, CHF, dysrhythmia, rapid A. fib, dehydration, fluid overload, cardiac sources, intracerebral event, toxicologic, neurologic, as well as other pathologies. EMERGENCY DEPARTMENT COURSE/PROCEDURES: ECG: Indication was shortness of breath. The ECG shows atrial fibrillation with a rapid rate at 165. There is some nonspecific ST change. There is a potential old lateral infarct. No ST elevation. No PVCs. The QTc is 427. Continuous Cardiac Monitoring: An order was placed for continuous cardiac monitoring. The monitor shows a rate of 110 with rapid atrial fibrillation. Critical Care Note: I have personally spent greater than 65 minutes of critical care time in the direct management of this patient. This includes bedside care, interpretation of diagnostic studies, and testing, discussion with consultants, patient, and family members, and other required patient management activities. This 65 minutes is in excess of all separately billable procedures. MEDICAL DECISION MAKING: There is no leukocytosis or concerning anemia. There is a normal platelet count. INR is quite elevated at greater than 9. She is over anticoagulated with her Coumadin. Renal panel testing does not show renal failure. Lactic acid level was somewhat elevated at around 3. This is consistent with dehydration and/or infection. Magnesium was somewhat low at 1.7. There was some liver enzyme elevation. Procalcitonin level was normal. ECG shows a rapid A. fib, no acute ischemic change. Cardiac enzyme testing x1 is not consistent with acute cardiac injury. BNP is elevated consistent with potential fluid overload. Chest x-ray shows fluid at both bases. There was some atelectasis/pneumonia present. CHF was thought a possibility. Rapid coronavirus testing was negative. The patient presented in significant distress. She was rapidly assessed and managed. She eventually was placed on BiPAP as she was not improving with just nasal cannula O2. The BiPAP helped significantly. She received a small amount of IV saline, 500 cc. She was given IV Decadron, she received 4 puffs of albuterol with a spacer. She received IV Ativan for anxiety. She was given IV magnesium. She was given a bolus of IV diltiazem and placed on a diltiazem drip. She received IV cefepime as empiric antibiotic coverage. The patient had an episode of severe dyspnea. I was called to the room. After being placed on BiPAP, she markedly improved. She seemed to improve also as her heart rate was better controlled. I doubt CHF/fluid overload as the patient appears clinically dehydrated. She has no pedal edema. She has no history of CHF or coronary disease. The patient actually has pneumonia, this has caused her dyspnea. The rapid A. fib is certainly contributing to her presentation. I did speak to the patient about her findings, I spoke with the case specialist. The on-call hospitalist has been consulted. Past Med/Surg History Medical History Generalized anxiety disorder (Chronic) History of benign breast biopsy History of cervical dysplasia History of colon polyps History of herpes genitalis History of migraine Hx of skin cancer, basal cell Irritable bowel syndrome with diarrhea (Chronic) Osteoporosis Paroxysmal atrial fibrillation Paroxysmal supraventricular tachycardia Pulmonary embolism (Chronic) 2007, 2013 Recurrent major depression (Chronic) Surgical History S/P IVC filter (Chronic) Family History Father Hypertension Stroke Myocardial infarction Sister Hypertension Brother Hypertension Mother Atrial fibrillation Social History Smoking Status: Current every day smoker Tobacco Type: Cigarettes Second Hand Exposure: No; Do You Dip or Chew Tobacco: No; Tobacco Cessation Education Requested by Patient: No Hx Alcohol Use: No Hx Substance Use: No Preferred Language: Georgian Communication Ability: Effective Beliefs That Will Affect Care: None Current Living Situation: Alone Other Information That Helps Us Care for You: No Feels Safe at Home: Yes Safety Concerns: Feels Safe At This Time Allergies Allergies Allergy/AdvReac Type Severity Reaction Status Date / Time meperidine Allergy Intermediate ITCHING Verified 03/22/20 16:53 morphine Allergy Intermediate Hives, Verified 03/22/20 16:53 itching levofloxacin [From Levaquin] Allergy Unknown Unknown Verified 03/22/20 16:53 tetanus toxoid, adsorbed Allergy Unknown Anaphylaxis Verified 03/22/20 16:54 quetiapine AdvReac Unknown Symptoms Verified 03/18/17 15:33 worsen risperidone AdvReac Unknown Symptoms Verified 03/18/17 15:33 worsen tizanidine AdvReac Unknown Tachycardia Verified 03/22/20 16:53 Home Meds Home Medications Medication Instructions Recorded Confirmed carisoprodol 350 mg PO TID PRN 03/22/20 03/22/20 clonazepam 0.5 mg PO BID 03/22/20 03/22/20 duloxetine 20 mg PO DAILY 03/22/20 03/22/20 gabapentin 600 mg PO TID 03/22/20 03/22/20 metoprolol succinate 12.5 mg PO BID 03/22/20 03/22/20 onabotulinumtoxinA [Botox] 155 unit IM DIRECTED 03/22/20 03/22/20 sumatriptan succinate 25 - 50 mg PO DIRECTED PRN MDD 03/22/20 03/22/20 5 TABLETS/DAY valacyclovir 500 mg PO DAILY 03/22/20 03/22/20 warfarin 3.75 mg PO 2XWK 03/22/20 03/22/20 warfarin 7.5 mg PO 5XWK 03/22/20 03/22/20 Results & Data (ED) Vital Signs Vital Signs - 24 hr 03/22/20 15:11 03/22/20 15:12 03/22/20 15:15 Temperature 36.6 C Temperature Source Oral Pulse Rate 160 H 143 H Pulse Rate [Apical] 151 H Respiratory Rate 24 28 H Respiratory Effort / Characteristics SOB on Exertion Respiratory Depth Respiratory Pattern Blood Pressure 115/98 117/103 H Blood Pressure [Right Arm] 117/103 H Blood Pressure Mean 103 109 Blood Pressure Mean [Right Arm] 107 Blood Pressure Position Lying Pulse Oximetry 90 96 Oxygen Delivery Method Room Air Room Air Nasal Cannula Oxygen Flow Rate 2 Fraction of Inspired Oxygen Sepsis Recent Fever Within 48 Hours No Sepsis New/Unexplained Change in Mental Status No Sepsis Action Taken by Nursing Previously Notified 03/22/20 15:26 03/22/20 15:30 03/22/20 15:45 Temperature Temperature Source Pulse Rate 119 H 138 H Pulse Rate [Apical] Respiratory Rate 26 H 25 H Respiratory Effort / Characteristics Respiratory Depth Respiratory Pattern Blood Pressure 94/78 L 116/83 Blood Pressure [Right Arm] Blood Pressure Mean 82 86 Blood Pressure Mean [Right Arm] Blood Pressure Position Pulse Oximetry 95 94 95 Oxygen Delivery Method Nasal Cannula Oxygen Flow Rate 2 2 Fraction of Inspired Oxygen Sepsis Recent Fever Within 48 Hours Sepsis New/Unexplained Change in Mental Status Sepsis Action Taken by Nursing 03/22/20 16:00 03/22/20 16:01 03/22/20 16:29 Temperature Temperature Source Pulse Rate 128 H 156 H Pulse Rate [Apical] Respiratory Rate 22 24 28 H Respiratory Effort / Characteristics Spontaneous Respiratory Depth Normal Respiratory Pattern Regular Blood Pressure 102/72 Blood Pressure [Right Arm] Blood Pressure Mean 75 Blood Pressure Mean [Right Arm] Blood Pressure Position Pulse Oximetry 93 93 97 Oxygen Delivery Method Nasal Cannula Oxygen Flow Rate 2 Fraction of Inspired Oxygen 70 Sepsis Recent Fever Within 48 Hours Sepsis New/Unexplained Change in Mental Status Sepsis Action Taken by Nursing 03/22/20 16:38 03/22/20 16:39 03/22/20 16:48 Temperature Temperature Source Pulse Rate Pulse Rate [Apical] 136 H 155 H 144 H Respiratory Rate 34 H 20 20 Respiratory Effort / Characteristics Non-Labored Non-Labored Respiratory Depth Normal Respiratory Pattern Blood Pressure Blood Pressure [Right Arm] 105/72 105/72 116/96 Blood Pressure Mean Blood Pressure Mean [Right Arm] 83 83 102 Blood Pressure Position Pulse Oximetry 97 97 97 Oxygen Delivery Method BiPAP BiPAP BiPAP Oxygen Flow Rate Fraction of Inspired Oxygen Sepsis Recent Fever Within 48 Hours Sepsis New/Unexplained Change in Mental Status Sepsis Action Taken by Nursing 03/22/20 16:53 03/22/20 17:20 Temperature Temperature Source Pulse Rate Pulse Rate [Apical] 144 H 126 H Respiratory Rate 24 18 Respiratory Effort / Characteristics Non-Labored Respiratory Depth Respiratory Pattern Blood Pressure Blood Pressure [Right Arm] 112/83 107/78 Blood Pressure Mean Blood Pressure Mean [Right Arm] 92 87 Blood Pressure Position Pulse Oximetry 98 97 Oxygen Delivery Method BiPAP Oxygen Flow Rate Fraction of Inspired Oxygen Sepsis Recent Fever Within 48 Hours Sepsis New/Unexplained Change in Mental Status Sepsis Action Taken by Long-Term Medications Current Medication List: was personally reviewed by me Laboratory Data Attestation: I reviewed the patient's lab results. Result diagrams: 03/22/20 15:35 03/22/20 15:35 Lab Results 03/22/20 03/22/20 03/22/20 Range/Units 15:35 15:35 15:35 WBC 7.22 (4.8-10.8) K/uL RBC 4.53 (4.2-5.4) M/uL Hgb 15.1 (12.0-16.0) g/dL Hct 43.0 (37-47) % MCV 94.9 (80-100) fL MCH 33.3 (25-34) pg MCHC 35.1 (32-36) g/dL RDW Std Deviation 48.2 H (36.4-46.3) fL RDW Coeff of Kevin 14.1 (11.5-14.5) % Plt Count 232 (130-400) K/uL MPV 10.9 H (7.4-10.4) fL Immature Gran % (Auto) 0.0 % Neut % (Auto) 69.6 % Lymph % (Auto) 20.4 % Redwood % (Auto) 9.6 % Eos % (Auto) 0.1 % Baso % (Auto) 0.3 % Neut # (Auto) 5.03 (1.4-6.5) K/uL Lymph # (Auto) 1.47 (1.2-3.4) K/uL Redwood # (Auto) 0.69 H (0.11-0.59) K/uL Eos # (Auto) 0.01 (0-0.5) K/uL Baso # (Auto) 0.02 (0-0.2) K/uL Immature Gran # (Auto) 0.00 (0.00-0.02) K/uL PT > 90.0 H (9.0-12.0) Seconds INR > 9.7 H* (0.9-1.1) APTT 41.1 H (21.0-31.0) Seconds PTT Ratio 1.5 Sodium (136-145) mmol/L Potassium (3.5-5.1) mmol/L Chloride (98-107) mmol/L Carbon Dioxide (21-32) mmol/L Anion Gap (3-11) BUN (7-18) mg/dl Creatinine (0.6-1.2) mg/dl Est Cr Clr Drug Dosing ml/min Est GFR ( Amer) Est GFR (Non-Af Amer) BUN/Creatinine Ratio (10-20) Glucose (70-99) mg/dl Lactate (0.4-2.0) mmol/L Calcium (8.5-10.1) mg/dl Magnesium (1.8-2.4) mg/dl Total Bilirubin (0.2-1) mg/dl AST (15-37) U/L ALT (12-78) U/L Alkaline Phosphatase (45-117) U/L Troponin I (0-0.045) ng/ml NT-Pro-B Natriuret Pep (0-900) pg/ml Total Protein (6.4-8.2) gm/dl Albumin (3.4-5.0) gm/dl Globulin (2.5-4.0) gm/dl Albumin/Globulin Ratio (0.9-2) Procalcitonin < 0.05 (0-0.5) ng/ml COVID-19 PCR (Negative) 03/22/20 03/22/20 03/22/20 Range/Units 15:35 15:42 15:47 WBC (4.8-10.8) K/uL RBC (4.2-5.4) M/uL Hgb (12.0-16.0) g/dL Hct (37-47) % MCV (80-100) fL MCH (25-34) pg MCHC (32-36) g/dL RDW Std Deviation (36.4-46.3) fL RDW Coeff of Kevin (11.5-14.5) % Plt Count (130-400) K/uL MPV (7.4-10.4) fL Immature Gran % (Auto) % Neut % (Auto) % Lymph % (Auto) % Redwood % (Auto) % Eos % (Auto) % Baso % (Auto) % Neut # (Auto) (1.4-6.5) K/uL Lymph # (Auto) (1.2-3.4) K/uL Redwood # (Auto) (0.11-0.59) K/uL Eos # (Auto) (0-0.5) K/uL Baso # (Auto) (0-0.2) K/uL Immature Gran # (Auto) (0.00-0.02) K/uL PT (9.0-12.0) Seconds INR (0.9-1.1) APTT (21.0-31.0) Seconds PTT Ratio Sodium 139 (136-145) mmol/L Potassium 3.9 (3.5-5.1) mmol/L Chloride 108 H (98-107) mmol/L Carbon Dioxide 20 L (21-32) mmol/L Anion Gap 11.0 (3-11) BUN 22 H (7-18) mg/dl Creatinine 0.95 (0.6-1.2) mg/dl Est Cr Clr Drug Dosing 50.3 ml/min Est GFR ( Amer) 70.8 Est GFR (Non-Af Amer) 61.1 BUN/Creatinine Ratio 22.8 H (10-20) Glucose 128 H (70-99) mg/dl Lactate 3.2 H* (0.4-2.0) mmol/L Calcium 8.0 L (8.5-10.1) mg/dl Magnesium 1.7 L (1.8-2.4) mg/dl Total Bilirubin 1.1 H (0.2-1) mg/dl AST 146 H (15-37) U/L ALT 110 H (12-78) U/L Alkaline Phosphatase 65 (45-117) U/L Troponin I 0.037 (0-0.045) ng/ml NT-Pro-B Natriuret Pep 3534 H (0-900) pg/ml Total Protein 6.0 L (6.4-8.2) gm/dl Albumin 3.0 L (3.4-5.0) gm/dl Globulin 3.0 (2.5-4.0) gm/dl Albumin/Globulin Ratio 1.0 (0.9-2) Procalcitonin (0-0.5) ng/ml COVID-19 PCR NEGATIVE (Negative) Administered Medications Clonazepam (Klonopin) 0.5 mg PO BID [facility] Stop: 04/21/20 20:59 Last Admin: 03/22/20 21:24 Dose: 0.5 mg Documented by: [id number] Gabapentin (Neurontin) 600 mg PO TID MELLISSA Stop: 04/21/20 20:59 Last Admin: 03/22/20 21:15 Dose: 600 mg Documented by: [id number] Doxycycline Hyclate 100 mg/ (Dextrose) 110 mls @ 50 mls/hr IV Q12 MELLISSA Stop: 03/29/20 20:59 Last Admin: 03/22/20 21:16 Dose: 50 mls/hr Documented by: [id number] Metoprolol Succinate (Toprol Xl) 12.5 mg PO BID MELLISSA Stop: 04/21/20 20:59 Last Admin: 03/22/20 21:23 Dose: 12.5 mg Documented by: [id number] Discontinued Medications Albuterol (Ventolin Hfa) 4 puffs INH NOW ONE Stop: 03/22/20 15:19 Last Admin: 03/22/20 15:51 Dose: 4 puffs Documented by: [id number] Dexamethasone Sodium Phosphate (Decadron Pf) 6 mg IV NOW ONE Stop: 03/22/20 16:49 Last Admin: 03/22/20 17:18 Dose: 6 mg Documented by: [id number] Diltiazem HCl (Cardizem) Confirm Administered Dose 25 mg IV .STK-MED ONE Stop: 03/22/20 15:17 Last Admin: 03/22/20 16:04 Dose: Not Given Documented by: [id number] Diltiazem HCl (Cardizem) 10 mg IV NOW STA Stop: 03/22/20 15:16 Last Admin: 03/22/20 15:20 Dose: 10 mg Documented by: [id number] Cosigned by: [id number] Cefepime HCl (Maxipime) 2,000 mg in 20 mls @ 5 mls/min IV NOW STA; Protocol Stop: 03/22/20 15:18 Last Admin: 03/22/20 15:52 Dose: 5 mls/min Documented by: [id number] Sodium Chloride (Nss 1000ml) 500 mls @ 999 mls/hr IV .Q31M ONE Stop: 03/22/20 15:45 Last Infusion: 03/22/20 16:47 Dose: 0 mls/hr Documented by: [id number] Admin: 03/22/20 15:27 Dose: 999 mls/hr Documented by: [id number] Diltiazem HCl 125 mg/ Dextrose 125 mls @ 5 mls/hr IV .Q24H [facility]; Protocol Stop: 04/21/20 15:14 Last Admin: 03/22/20 15:57 Dose: 5 mg/hr, 5 mls/hr Documented by: [id number] Cosigned by: [id number] Lorazepam (Ativan) 0.5 mg in 1 mls @ 1 mls/min IV NOW STA Stop: 03/22/20 16:26 Last Admin: 03/22/20 16:45 Dose: 1 mls/min Documented by: [id number] Magnesium Sulfate/Dextrose (Magnesium Sulfate / D5w) 1 gm in 100 mls @ 100 mls/hr IV NOW STA Stop: 03/22/20 17:34 Last Infusion: 03/22/20 19:34 Dose: 0 mls/hr Documented by: [id number] Admin: 03/22/20 16:52 Dose: 100 mls/hr Documented by: [id number] Phytonadione 5 mg/ Sodium (Chloride) 50.5 mls @ 101 mls/hr IV ONE ONE Stop: 03/22/20 20:29 Last Infusion: 03/22/20 21:36 Dose: 0 mls/hr Documented by: [id number] Admin: 03/22/20 21:09 Dose: 101 mls/hr Documented by: [id number] Furosemide 20 mg/ Syringe 2 mls @ 4 mls/min IV TODAY@2030 ONE Stop: 03/22/20 20:31 Last Admin: 03/22/20 21:23 Dose: 4 mls/min Documented by: [id number] Miscellaneous () 1 ea N/A NOW STA Stop: 03/22/20 15:16 Last Admin: 03/22/20 19:45 Dose: 1 ea Documented by: [id number] Potassium Chloride (Klor-Con M20) 20 meq PO NOW ONE Stop: 03/22/20 20:21 Last Admin: 03/22/20 21:23 Dose: 20 meq Documented by: [id number] Imaging Data Radiologist's Impression: XR chest 1V portable CLINICAL HISTORY: SEPSIS COMPARISON STUDY: 03/18/2017 FINDINGS: The heart is at the upper limits of normal in size. There are bilateral pleural effusions with associated basilar airspace opacities. There are also left upper lobe airspace opacities. A multifocal pneumonia is favored over congestive failure with pulmonary edema. Clinical and radiographic follow- up is recommended.[ IMPRESSION: 1. Bilateral pulmonary airspace opacities and bilateral pleural effusions. A multifocal pneumonia is favored over congestive failure with pulmonary edema. Blood Pressure Blood Pressure Findings: Normal blood pressure Blood Pressure Disposition: further management by hospitalist Discharge Plan Visit Data *Final* Discharge Date/Time: 03/22/20 18:18 Chief Complaint: Illness ED Provider: David Krueger Discharge Problem: Acute respiratory distress, Pneumonia, Atrial fibrillation with RVR, Acute dehydration Patient Disposition: Admitted As Inpatient Condition: Serious Discharge Instructions Interventions: ED Discharge Assessment Last Done: 03/22/20 18:18
[2020-03-22 16:03] LABS: Basophils # (auto) 0.02 K/uL (0-0.2); Basophils % (auto) 0.3 %; Eosinophils # (auto) 0.01 K/uL (0-0.5); Eosinophils % (auto) 0.1 %; Hemoglobin 15.1 g/dL (12.0-16.0); Lymphocytes # (auto) 1.47 K/uL (1.2-3.4); Lymphocytes % (auto) 20.4 %; Mean Corpuscular Hemoglobin 33.3 pg (25-34); Mean Corpuscular Hgb Conc 35.1 g/dL (32-36); Mean Corpuscular Volume 94.9 fL (80-100); Mean Platelet Volume 10.9 fL (7.4-10.4); Monocytes # (auto) 0.69 K/uL (0.11-0.59); Monocytes % (auto) 9.6 %; Neutrophils # (auto) 5.03 K/uL (1.4-6.5); Neutrophils % (auto) 69.6 %; Platelet Count 232 K/uL (130-400); RDW Coefficient of Variation 14.1 % (11.5-14.5); RDW Standard Deviation 48.2 fL (36.4-46.3); Red Blood Count 4.53 M/uL (4.2-5.4); White Blood Count 7.22 K/uL (4.8-10.8)
[2020-03-22 16:21] LABS: BUN Creatinine Ratio 22.8 (10-20); Creatinine Clr Calc Pharmacy 50.3 ml/min; Est GFR (African American) 70.8; Est GFR (Non-African American) 61.1; Magnesium 1.7 mg/dl (1.8-2.4); Partial Thromboplastin Ratio 1.5; Partial Thromboplastin Time 41.1 Seconds (21.0-31.0); Potassium 3.9 mmol/L (3.5-5.1); Prothrombin Time > 90.0 Seconds (9.0-12.0)
[2020-03-22 16:23] LABS: INR > 9.7 (0.9-1.1)
[2020-03-22] MEDS ORDERED: LORazepam 0.5 MG/1 ML VIAL IV STA (16:25)
[2020-03-22 16:26] LABS: Bilirubin,Total 1.1 mg/dl (0.2-1); Troponin I 0.037 ng/ml (0-0.045)
[2020-03-22] MEDS ORDERED: MAGNESIUM SULFATE / D5W 1 GM/100 ML BAG IV STA (16:35)
--- NOTE | 2020-03-22 16:43 | XRay Report ---
XR chest 1V portable CLINICAL HISTORY: SEPSIS COMPARISON STUDY: 03/18/2017 FINDINGS: The heart is at the upper limits of normal in size. There are bilateral pleural effusions w ith associated basilar airspace opacities. There are also left upper lobe airspace opacities. A multi focal pneumonia is favored over congestive failure with pulmonary edema. Clinical and radiographic fo llow-up is recommended.[ IMPRESSION: 1. Bilateral pulmonary airspace opacities and bilateral pleural effusions. A multifocal pneumonia is favored over congestive failure with pulmonary edema. ACT 112: Negative or not required by law. Electronically signed by: Edilson John M.D. 03/22/2020 4:42 PM
[2020-03-22] MEDS ORDERED: DEXAMETHASONE **PF** INJ 10 MG/ML VIAL IV ONE (16:48)
--- NOTE | 2020-03-22 17:20 | History & Physical Report ---
Date of Service March 22, 2020 Assessment & Plan (1) Cough: Presented to ED with intermittent fever, cough, SOB, nausea, diarrhea, anosmia, dysgeusia. No apparent risk factors for COVID-19, but symptoms concerning. Chest x-ray shows bilateral infiltrates. SARS-CoV-2 PCR negative in ED. Must consider possibility of false negative PCR. Therefore, will consider patient to be PUI pending repeat PCR tomorrow. Consider other causes of pneumonia, including atypical etiologies as well as viral pathogens other than SARS-CoV-2. Blood cultures obtained in ED. Check sputum culture if possible. Check [employer] respiratory panel. Received IV cefepime in ED; add doxycycline for atypical coverage pending more data. May have pulmonary edema from AF with RVR. BNP elevated. Check echo. Furosemide 20 mg IV tonight x 1. Recheck chest x-ray in a.m. Consult Pulmonary Medicine and Cardiology. (2) Dyspnea: Progressive dyspnea with cough as discussed above. Suspected lower respiratory tract infection +/- pulmonary edema. Acute pulmonary embolism very unlikely with supratherapeutic INR. O2 sats in ED > 90% RA / 2 L NC. Episode of cyanosis and worsening SOB in ED associated with paroxysm of coughing. Started on BiPAP in ED. Wean BiPAP / O2 as tolerated. (3) Hemoptysis: Mild hemoptysis in setting of possible lower respiratory tract infection and/or pulmonary edema + supratherapeutic INR. Smoker. Consult Pulmonary Medicine. (4) Elevated lactic acid level: Initial serum lactate 3.2. Consider sepsis, although normal WBC and normal procalcitonin make sepsis less likely. Hyperlactatemia could be secondary to hypoxia (O2 sats were at home or en route unknown) and/or work of breathing. Bowel ischemia / infarct unlikely with supratherapeutic INR. Follow. (5) Atrial fibrillation with RVR: History of PAF 2017. EKG's in clinic 2018 showed NSR. Holter 2019 showed runs of PAF. Has been on metoprolol and warfarin. Experiencing frequent palpitations over past several weeks. Found to be in AF with RVR upon presentation to ED.. Started on diltiazem infusion. K normal. Mg low. Check TSH (although it may be difficult to interpret in light of acute illness). Try to stop diltiazem. Continue metoprolol succinate; IV metoprolol PRN for high rates. Titrate warfarin. Consult Cardiology. (6) Transaminitis: AST 146, ALT 110; bilirubin 1.1, alk phos normal. Elevated transaminases could be from liver, skeletal muscle, lung, or other tissues. Check acute hepatitis profile. Check CPK. Check US liver. Follow. (7) Medication induced coagulopathy: On long-term warfarin for PAF + recurrent PE's. Warfarin dose recently reduced for slightly elevated INR. INR today > 9.7. No active gross bleeding. Elevated INR probably due to decreased vitamin K intake due to nausea / anorexia. Vitamin K 5 mg today x 1. Follow INR. (8) Pulmonary embolism: History of pulmonary emboli on at least 2 or 3 occasions. On chronic warfarin therapy. IVC filter placed due to recurrent PE while on warfarin with therapeutic INR. Now with supratherapeutic INR. Resume / titrate warfarin therapy once INR back in therapeutic range. (9) Hypomagnesemia: Mg 1.7. Replace. Follow. (10) Diarrhea: Frequent loose stools. History of irritable bowel syndrome, but symptoms worse than usual. Check stools for C diff and routine enteric pathogens. (11) Anxiety: Continue clonazepam. (12) Depression: Continue duloxetine. (13) History of herpes genitalis: Continue valacyclovir for prophylaxis. (14) Smoking: Smoking cessation counseling. (15) DVT prophylaxis: On warfarin with supratherapeutic INR, management as discussed above. Titrate warfarin to maintain INR in therapeutic range. Add SCD's if INR becomes subtherapeutic. Ambulate as able. (16) Discharge planning issues: Anticipated discharge to home. Family Medicine follow-up with Dr. Leger. Cardiology follow-up with Dr. Gupta. History of Present Illness Chief Complaint: fever, cough, SOB Primary Care Provider: Dr. Darrius Leger 69 YO female followed by Dr. Leger for Family Medicine and Dr. Gupta for Cardiology. History of paroxysmal atrial fibrillation, paroxysmal supraventricular tachycardia, recurrent pulmonary emboli, and other problems as noted below. Experiencing intermittent palpitations over past few months. Noticed dyspnea and some dependent edema. Reluctant to go to clinic for evaluation because of COVID-19 pandemic. About 2 weeks ago she developed headache and rhinorrhea. Subsequently developed fever, chills, cough, malaise, myalgias, nausea, diarrhea, anosmia, dysgeusia. Cough initially nonproductive, later productive of yellow-green sputum with small amount of blood. No sick contacts. No travel. She has been very careful with social distancing. Continued to experiencing palpitations as well as worsening dyspnea on exertion. Noted intermittent mid-sternal chest pressure. No pleuritic chest pain. Tried albuterol MDI for SOB without improvement. Summoned EMS because of worsening symptoms. Received IV fluids en route to ED. Upon arrival to ED, she appeared to be in respiratory distress; also noted to be in AF with RVR. She received albuterol via MDI. Had paroxysm of coughing associated with cyanosis and worsening dyspnea / tachypnea. BiPAP applied with some improvement of her symptoms. Started on IV diltiazem infusion with improvement of ventricular rate. Other interventions in ED: IV NSS 500 ml bolus cefepime lorazepam dexamethasone By the time of my assessment in ED, patient felt better and was breathing comfortably with BiPAP. Allergies Allergy/AdvReac Type Severity Reaction Status Date / Time meperidine Allergy Intermediate ITCHING Verified 03/22/20 16:53 morphine Allergy Intermediate Hives, Verified 03/22/20 16:53 itching levofloxacin [From Levaquin] Allergy Unknown Unknown Verified 03/22/20 16:53 tetanus toxoid, adsorbed Allergy Unknown Anaphylaxis Verified 03/22/20 16:54 quetiapine AdvReac Unknown Symptoms Verified 03/18/17 15:33 worsen risperidone AdvReac Unknown Symptoms Verified 03/18/17 15:33 worsen tizanidine AdvReac Unknown Tachycardia Verified 03/22/20 16:53 Home Medications Home Medications Medication Instructions Recorded Confirmed Type carisoprodol 350 mg PO TID PRN 03/22/20 03/22/20 History clonazepam 0.5 mg PO BID 03/22/20 03/22/20 History duloxetine 20 mg PO DAILY 03/22/20 03/22/20 History gabapentin 600 mg PO TID 03/22/20 03/22/20 History metoprolol succinate 12.5 mg PO BID 03/22/20 03/22/20 History onabotulinumtoxinA [Botox] 155 unit IM DIRECTED 03/22/20 03/22/20 History sumatriptan succinate 25 - 50 mg PO DIRECTED PRN MDD 03/22/20 03/22/20 History 5 TABLETS/DAY valacyclovir 500 mg PO DAILY 03/22/20 03/22/20 History warfarin 3.75 mg PO 2XWK 03/22/20 03/22/20 History warfarin 7.5 mg PO 5XWK 03/22/20 03/22/20 History Past Med/Surg History Medical History (Updated 03/22/20 @ 21:10 by Acosta Salcedo MD) Generalized anxiety disorder (Chronic) History of benign breast biopsy History of cervical dysplasia History of colon polyps History of herpes genitalis History of migraine Hx of skin cancer, basal cell Irritable bowel syndrome with diarrhea (Chronic) Osteoporosis Paroxysmal atrial fibrillation Paroxysmal supraventricular tachycardia Pulmonary embolism (Chronic) 2007, 2013 Recurrent major depression (Chronic) Surgical History S/P IVC filter (Chronic) Family History Father Hypertension Stroke Myocardial infarction Sister Hypertension Brother Hypertension Mother Atrial fibrillation Social History Smoking Status: Current every day smoker Tobacco Type: Cigarettes Second Hand Exposure: No; Do You Dip or Chew Tobacco: No; Tobacco Cessation Education Requested by Patient: No Hx Alcohol Use: No Hx Substance Use: No Preferred Language: [place] Communication Ability: Effective Beliefs That Will Affect Care: None Current Living Situation: Alone Other Information That Helps Us Care for You: No Feels Safe at Home: Yes Safety Concerns: Feels Safe At This Time Review of Systems Constitutional: + fever, + chills, + body aches, + malaise and + anorexia; no weight loss Eyes: no diplopia and no worsening vision Ear, Nose, Mouth, Throat: no nasal congestion, no sinus pain/pressure and no s ore throat Respiratory: as per Subjective / HPI Cardiovascular: as per Subjective / HPI Gastrointestinal: + nausea and + diarrhea/loose stools; no vomiting, no constipation, no blood in stools and no melena Genitourinary: no dysuria and no hematuria Musculoskeletal: + myalgia Integumentary: no rash and no new lesions Neurologic: + headache(s) Psychiatric: + depression and + anxiety Endocrine: no polydipsia and no polyuria Hematologic / Lymphatic: no easy bleeding, no easy bruising and no lymphadenopathy Physical Exam Constitutional: WD/WN, vitals as above + ill appearing Eyes: PERRL, conjunctivae normal, anicteric sclerae ENMT: external ear and nose normal, oropharynx normal Neck: trachea midline, no thyromegaly Respiratory: + tachypneic Auscultation: + rales and + wheezes; no pleural rub wearing BiPAP Cardiovascular: Rate/Rhythm: + irregularly irregular Heart Sounds: no gallop, no murmur and no cardiac rub Vessels: + JVD and normal peripheral pulses Extremities: normal capillary refill and + edema (trace pretibial); no calf tenderness Gastrointestinal (Abdomen): normal bowel sounds, soft, nontender, no hepatosplenomegaly Musculoskeletal: Head/Neck/Chest: neck supple Extremities: strength 5/5 throughout; no cyanosis and no clubbing Skin: no rashes, warm and dry Neurologic: PERRL, EOMI no facial palsy no dysarthria or aphasia patellar DTR's 2/2 bilat Psychiatric: Orientation: alert and oriented x 3 Affect: euthymic affect Lymphatic: no cervical lymphadenopathy Results & Data Results & Data ([facility]) Vital Signs (Past 12 Hours) Vital Signs Temp Pulse Pulse Resp BP BP Pulse Ox 03/22/20 16:53 144 H 24 112/83 98 03/22/20 16:48 144 H 20 116/96 97 03/22/20 16:39 155 H 20 105/72 97 03/22/20 16:38 136 H 34 H 105/72 97 03/22/20 16:29 156 H 28 H 97 03/22/20 16:01 128 H 24 102/72 93 03/22/20 16:00 22 93 03/22/20 15:45 138 H 25 H 116/83 95 03/22/20 15:30 119 H 26 H 94/78 L 94 03/22/20 15:26 95 03/22/20 15:15 143 H 151 H 28 H 117/103 H 117/103 H 96 03/22/20 15:12 36.6 C 160 H 24 115/98 90 Laboratory Results Laboratory Results - last 24 hr 03/22/20 03/22/20 03/22/20 15:35 15:35 15:35 WBC 7.22 RBC 4.53 Hgb 15.1 Hct 43.0 MCV 94.9 MCH 33.3 MCHC 35.1 RDW Std Deviation 48.2 H RDW Coeff of Kevin 14.1 Plt Count 232 MPV 10.9 H Immature Gran % (Auto) 0.0 Neut % (Auto) 69.6 Lymph % (Auto) 20.4 [place] % (Auto) 9.6 Eos % (Auto) 0.1 Baso % (Auto) 0.3 Neut # (Auto) 5.03 Lymph # (Auto) 1.47 [place] # (Auto) 0.69 H Eos # (Auto) 0.01 Baso # (Auto) 0.02 Immature Gran # (Auto) 0.00 PT > 90.0 H INR > 9.7 H* APTT 41.1 H PTT Ratio 1.5 Sodium Potassium Chloride Carbon Dioxide Anion Gap BUN Creatinine Est Cr Clr Drug Dosing Est GFR ( Amer) Est GFR (Non-Af Amer) BUN/Creatinine Ratio Glucose Lactate Calcium Magnesium Total Bilirubin AST ALT Alkaline Phosphatase Troponin I NT-Pro-B Natriuret Pep Total Protein Albumin Globulin Albumin/Globulin Ratio Procalcitonin < 0.05 COVID-19 PCR 03/22/20 03/22/20 03/22/20 15:35 15:42 15:47 WBC RBC Hgb Hct MCV MCH MCHC RDW Std Deviation RDW Coeff of Kevin Plt Count MPV Immature Gran % (Auto) Neut % (Auto) Lymph % (Auto) [place] % (Auto) Eos % (Auto) Baso % (Auto) Neut # (Auto) Lymph # (Auto) [place] # (Auto) Eos # (Auto) Baso # (Auto) Immature Gran # (Auto) PT INR APTT PTT Ratio Sodium 139 Potassium 3.9 Chloride 108 H Carbon Dioxide 20 L Anion Gap 11.0 BUN 22 H Creatinine 0.95 Est Cr Clr Drug Dosing 50.3 Est GFR ( Amer) 70.8 Est GFR (Non-Af Amer) 61.1 BUN/Creatinine Ratio 22.8 H Glucose 128 H Lactate 3.2 H* Calcium 8.0 L Magnesium 1.7 L Total Bilirubin 1.1 H AST 146 H ALT 110 H Alkaline Phosphatase 65 Troponin I 0.037 NT-Pro-B Natriuret Pep 3534 H Total Protein 6.0 L Albumin 3.0 L Globulin 3.0 Albumin/Globulin Ratio 1.0 Procalcitonin COVID-19 PCR NEGATIVE 03/22/20 17:57 WBC RBC Hgb Hct MCV MCH MCHC RDW Std Deviation RDW Coeff of Kevin Plt Count MPV Immature Gran % (Auto) Neut % (Auto) Lymph % (Auto) [place] % (Auto) Eos % (Auto) Baso % (Auto) Neut # (Auto) Lymph # (Auto) [place] # (Auto) Eos # (Auto) Baso # (Auto) Immature Gran # (Auto) PT INR APTT PTT Ratio Sodium Potassium Chloride Carbon Dioxide Anion Gap BUN Creatinine Est Cr Clr Drug Dosing Est GFR ( Amer) Est GFR (Non-Af Amer) BUN/Creatinine Ratio Glucose Lactate 2.6 H* Calcium Magnesium Total Bilirubin AST ALT Alkaline Phosphatase Troponin I NT-Pro-B Natriuret Pep Total Protein Albumin Globulin Albumin/Globulin Ratio Procalcitonin COVID-19 PCR Diagnostic Findings PORTABLE CHEST X-RAY Reviewed by the undersigned and formally interpreted by Radiology: FINDINGS: The heart is at the upper limits of normal in size. There are bilateral pleural effusions with associated basilar airspace opacities. There are also left upper lobe airspace opacities. A multifocal pneumonia is favored over congestive failure with pulmonary edema. Clinical and radiographic follow-up is recommended.[ IMPRESSION: 1. Bilateral pulmonary airspace opacities and bilateral pleural effusions. A multifocal pneumonia is favored over congestive failure with pulmonary edema. ACT 112: Negative or not required by law. Electronically signed by: Edilson John M.D. 03/22/2020 4:42 PM ECG Additional Comments: EKG performed at 1511 reviewed and demonstrated AF at 165 / min, QTc 427 msec, RBBB, poor R-wave progression, inverted T-waves III, slight ST depression laterally. Code Status & VTE Plan Code Status Discussed with patient. She has a living will, but does not recall all of the specifics. She would like resuscitation attempted in the event of a cardiopulmonary arrest if there is a reasonable chance of a meaningful recovery. VTE Prophylaxis Plan VTE Prophylaxis will be ordered: Yes
[2020-03-22] MEDS ORDERED: LEVALBUTEROL TARTRATE 15 GM HFA.AER.AD INH PRN (19:40)
[2020-03-22] MEDS ORDERED: ONDANSETRON INJ 2 MG/ML 2 ML VIAL IV PRN (19:40)
[2020-03-22] MEDS ORDERED: ACETAMINOPHEN 325 MG TAB PO PRN (19:40)
[2020-03-22] MEDS ORDERED: PHYTONADIONE 5 MG in SODIUM CHLORIDE 0.9% 50 ML IV ONE (20:00)
[2020-03-22] MEDS ORDERED: POTASSIUM CHLORIDE 20 MEQ TABCR PO ONE (20:20)
[2020-03-22] MEDS ORDERED: FUROSEMIDE 20 MG in SYRINGE 0 ML IV ONE (20:30)
[2020-03-22] MEDS ORDERED: GABAPENTIN 300 MG CAP PO SCH (21:00)
[2020-03-22] MEDS ORDERED: DOXYCYCLINE HYCLATE 100 MG in DEXTROSE 5% 100 ML IV SCH (21:00)
[2020-03-22] MEDS ORDERED: METOPROLOL SUCC 25MG EXT REL TAB PO SCH (21:00)
[2020-03-22] MEDS: GABAPENTIN 600 MG TAB PO SCH (21:15)
[2020-03-22] MEDS: clonazePAM 0.5 MG TAB PO SCH (21:24)
[2020-03-22] MEDS ORDERED: LORazepam 0.5 MG TAB PO PRN (21:54)
[2020-03-22 22:02] LABS: Potassium 4.4 mmol/L (3.5-5.1)
[2020-03-22 22:10] LABS: Magnesium 2.3 mg/dl (1.8-2.4)
[2020-03-22 22:52] LABS: Adenovirus PCR Not Detected (NotDetected); Bordetella parapertussis PCR Not Detected (NotDetected); Bordetella pertussis PCR Not Detected (NotDetected); Chlamydia pneumoniae PCR Not Detected (NotDetected); Coronavirus 229E PCR Not Detected (NotDetected); Coronavirus HKU1 PCR Not Detected (NotDetected); Coronavirus NL63 PCR Not Detected (NotDetected); Coronavirus OC43PCR Not Detected (NotDetected); Human Metapneumovirus PCR Not Detected (NotDetected); Influenza A PCR Not Detected (NotDetected); Influenza B PCR Not Detected (NotDetected); Mycoplasma pneumoniae PCR Not Detected (NotDetected); Parainfluenza Virus 1 PCR Not Detected (NotDetected); Parainfluenza Virus 2 PCR Not Detected (NotDetected); Parainfluenza Virus 3 PCR Not Detected (NotDetected); Parainfluenza Virus 4 PCR Not Detected (NotDetected); Respiratory Syncytial VirusPCR Not Detected (NotDetected); Rhinovirus/Enterovirus PCR Not Detected (NotDetected)
[2020-03-22] MEDS: CEFEPIME 2,000 MG in SYRINGE 7.5 ML IV SCH (23:18)
[2020-03-22] MEDS: METOPROLOL TARTRATE 1 MG/ML VIAL IV PRN (23:21)
[2020-03-23] MEDS ORDERED: METOPROLOL TARTRATE 1 MG/ML VIAL IV STA ×3 (01:33→04:03)
[2020-03-23 01:42] LABS: iSTAT Allen Test Pass; iSTAT Arterial Blood Gas HCO3 19 meg/L (19-24); iSTAT Arterial Blood Gas pCO2 35 mmHg (35-46); iSTAT Arterial Blood Gas pH 7.34 (7.35-7.45); iSTAT Arterial Blood Gas pO2 98 mmHg (80-95); iSTAT Carbon Dioxide 20 mmol/L (24-31); iSTAT FiO2 50 %; iSTAT Site L Radial
--- NOTE | 2020-03-23 01:48 | Critical Care Consultation ---
Date of Consultation March 23, 2020 Assessment & Plan (1) Admitted to intensive care unit: Reason Critically Ill: 69-year-old female in acute respiratory distress with bilateral pulmonary infiltrates as well as pulmonary edema. Patient in rapid A. fib. She has supratherapeutic INR. Poor p.o. intake. Lactic acidosis. NEURO - * CAM ICU: NEGATIVE * Anxiety/depression: * Ativan as needed. * May help with tolerance of BiPAP as well. CARDIAC/VASCULAR - * A. fib with RVR: * History of the same. * Initially placed on Cardizem. This is been discontinued. * Will provide aliquots of metoprolol PRN. * Patient is with supratherapeutic INR at this time. * Aim for rate control. * Monitor on telemetry. RESPIRATORY - * Respiratory distress with hypoxia: * Multifactorial in the setting of multifocal pneumonia and pulmonary edema. * Continue with positive pressure as tolerated. * Will check ABG. * Initial COVID testing negative. * Continue with broad-spectrum antibiotics. * Reported hemoptysis: * Monitor closely for pulmonary hemorrhage in the setting of supratherapeutic INR. * Consider nebulized TXA if worsens. GI/NUTRITION - * Will make n.p.o. at this time given tenuous respiratory status. RENAL/LYTES - * Hypomagnesemia: * Replace as needed. * Hold on IV fluids given findings of volume overload. - * Strict I&Os. ENDO - * No history of diabetes or thyroid disease. * BSGs per unit protocol. ISS --> gtt per unit policy. HEME - * Supratherapeutic INR: * Patient received 5 mg vitamin K. * Will recheck a.m. labs. * Monitor for signs/symptoms of bleeding. ID - * Multifocal pneumonia: * With elevated lactate. Will trend. * Subjective fevers at home. * On cefepime and doxycycline at this point. * Patient under investigation for COVID-19: * Initial COVID tested and was negative. * Labs are relatively suspicious given findings of lymphocytosis, transaminitis, and normal procalcitonin despite chest x-ray findings concerning for infiltrative changes. * Will add LDH, ferritin, ESR, d-dimer on a.m. labs for further assessment. * Continue to treat possible underlying superinfection at this point. LINES/IV ACCESS - * PIVs x2 DVT PROPHYLAXIS - * Hold in the setting of supratherapeutic INR. * SCDs I have personally spent 35 minutes of critical care time in the direct management of this patient. This is a life/limb threatening event. This includes time spent evaluating patient, direct bedside care, chart review, placing orders, interpretation of diagnostic studies, discussion with consultants, patient, and family members, as well as other required patient management activities. This time is exclusive of all separately billable procedures, and teaching time and separate from and in addition to any other critical care service time. Thank you for allowing us to participate in the care of this patient. Please refer to my attending physician's documentation for any further recommendations. (2) Respiratory distress: (3) Cough: (4) Smoking: (5) Hemoptysis: (6) Elevated lactic acid level: (7) Transaminitis: (8) A-fib: (9) Supratherapeutic INR: Supervising Physician Co-Signing Physician Notes Patient seen and examined. EMR reviewed. Discussed with critical care ZAIRE overnight and with attending hospitalist. Patient has hypoxemic respiratory failure with some pulmonary infiltrates. There was concerned about a false negative COVID test as she had a negative rapid test in the emergency room. The false-negative rate on this test with our current disease prevalence in the community in symptomatic patients is less than 1%. The patient does not report a history of fevers and I think we have an alternative diagnosis which is more likely given her A. fib with RVR, pulmonary infiltrates, and elevated BNP level. In addition her procalcitonin bio fires were negative. Will discontinue antibiotics at this point time. Discontinue respiratory isolation. No need for repeat coronavirus testing unless the patient should change clinically. Continue attempts at rate control. Await cardiology consultation today but will try and push beta-dayan. Given that her pressure is somewhat soft, will place on a low-dose of digoxin as well and follow. Continue diuretics. It certainly possible the patient could have some degree of pulmonary hemorrhage given her supratherapeutic INR. INR is decreasing and supportive care is warranted currently. Should her infiltrates fail to improve or if she should worsen clinically, additional evaluation may be appropriate. Discussed on multidisciplinary rounds and with ICU bedside nurse. Additional critical care time: 45 minutes History of Present Illness Attending Physician: Acosta Salcedo MD History of Present Illness Patient is a 69-year-old female with a significant past medical history of A. fib, anxiety, depression, pulmonary emboli currently anticoagulated with Coumadin, status post IVC filter placement who presented to the emergency department with approximately 2 weeks of symptoms which began with nasal congestion and cough. She complains of anosmia as well. She is reportedly had some occasional chest discomfort. She has had slight hemoptysis as well. Patient reports subjective low-grade fevers at home. In the emergency department, she was noted to be in A. fib. She was placed on Cardizem drip which did provide moderate relief of tachycardia. She had pulmonary edema as well as bilateral infiltrative changes. She was placed on cefepime and doxycycline was added by hospitalist. Bio fire panel was negative. Initial rapid COVID was negative. Patient was placed on BiPAP for increased work of breathing. While admitted upstairs, the patient had increasing work of breathing as well as increasing FiO2 requirements and persistent tachycardia. Given that the patient is high risk for need for intubation and room availability, it was felt best the patient be brought to the ICU for closer monitoring and the need for airway intervention as well as closer monitoring of heart rate and hemodynamics. Upon evaluation in the ICU, the patient is awake, alert, and oriented. She rep orts that she is breathing much better with the BiPAP in place. She complains of generalized fatigue at this time. She complains of some occasional chest discomfort but none present at this time. She reports no headaches. She denies any nausea or vomiting. She reports no abdominal pain. Allergies Allergy/AdvReac Type Severity Reaction Status Date / Time meperidine Allergy Intermediate ITCHING Verified 03/22/20 16:53 morphine Allergy Intermediate Hives, Verified 03/22/20 16:53 itching levofloxacin [From Levaquin] Allergy Unknown Unknown Verified 03/22/20 16:53 tetanus toxoid, adsorbed Allergy Unknown Anaphylaxis Verified 03/22/20 16:54 quetiapine AdvReac Unknown Symptoms Verified 03/18/17 15:33 worsen risperidone AdvReac Unknown Symptoms Verified 03/18/17 15:33 worsen tizanidine AdvReac Unknown Tachycardia Verified 03/22/20 16:53 Home Medications Home Medications Medication Instructions Recorded Confirmed Type carisoprodol 350 mg PO TID PRN 03/22/20 03/22/20 History clonazepam 0.5 mg PO BID 03/22/20 03/22/20 History duloxetine 20 mg PO DAILY 03/22/20 03/22/20 History gabapentin 600 mg PO TID 03/22/20 03/22/20 History metoprolol succinate 12.5 mg PO BID 03/22/20 03/22/20 History onabotulinumtoxinA [Botox] 155 unit IM DIRECTED 03/22/20 03/22/20 History sumatriptan succinate 25 - 50 mg PO DIRECTED PRN MDD 03/22/20 03/22/20 History 5 TABLETS/DAY valacyclovir 500 mg PO DAILY 03/22/20 03/22/20 History warfarin 3.75 mg PO 2XWK 03/22/20 03/22/20 History warfarin 7.5 mg PO 5XWK 03/22/20 03/22/20 History Patient History Medical History Generalized anxiety disorder (Chronic) History of benign breast biopsy History of cervical dysplasia History of colon polyps History of herpes genitalis History of migraine Hx of skin cancer, basal cell Irritable bowel syndrome with diarrhea (Chronic) Osteoporosis Paroxysmal atrial fibrillation Paroxysmal supraventricular tachycardia Pulmonary embolism (Chronic) 2007, 2013 Recurrent major depression (Chronic) Surgical History S/P IVC filter (Chronic) Family History Father Hypertension Stroke Myocardial infarction Sister Hypertension Brother Hypertension Mother Atrial fibrillation Social History Smoking Status: Current every day smoker Tobacco Type: Cigarettes Second Hand Exposure: No; Do You Dip or Chew Tobacco: No; Tobacco Cessation Education Requested by Patient: No Hx Alcohol Use: No Hx Substance Use: No Preferred Language: Luxembourger Communication Ability: Effective Beliefs That Will Affect Care: None Current Living Situation: Alone Other Information That Helps Us Care for You: No Feels Safe at Home: Yes Safety Concerns: Feels Safe At This Time Review of Systems Review of Systems: A complete 10 point review of systems was reviewed with the patient with pertinent positives and negatives as per history of present illness. All else were negative. Physical Exam Physical Exam: VITAL SIGNS - Vital signs and nursing notes were reviewed. GENERAL - 69-year-old female appearing her stated age who is in no acute distress. Communicates well with provider and answers questions appropriately. Appears weak. SKIN - Without rashes. HEAD - NC/AT. EYES - PERRL with EOMI bilaterally. Sclera anicteric. EARS - No deformities of external structures noted on gross examination bilaterally. NOSE - Midline and without cyanosis. No epistaxis or purulent drainage noted. MOUTH/OROPHARYNX - Without perioral cyanosis. Buccal mucosa pink and moist and without leukoplakia. NECK - Neck with FROM. Supple to palpation. No lymphadenopathy noted. No nuchal rigidity. LUNGS - Chest wall symmetric without accessory muscle use, intercostals retractions, or central cyanosis. Coarse breath sounds with slight inspiratory wheezes noted in the upper lung rincon bilaterally. Diminished lungs sounds at the bases. CARDIAC - Tachycardic. no murmur, rubs, or gallops appreciated. ABDOMEN - Abdominal contour flat without pulsations or visible masses. BS normoactive all four quadrants. No tenderness, palpable masses, hepatosplenomegaly, or ascites noted. EXTREMITIES - No clubbing or peripheral cyanosis. No pretibial edema present. +3/5 radial and dorsalis pedis pulses palpated throughout. +4/5 strength noted in UE/LE bilaterally. NEUROLOGIC - Cranial nerves II through XII grossly intact. Sensory intact to light touch throughout. PSYCH - A&Ox3 and cooperates fully with examiner. Pt is very pleasant and interacts well with examiner. Results & Data Results & Data ([facility]) Vital Signs (Past 12 Hours) Vital Signs Temp Pulse Pulse Resp BP BP Pulse Ox 03/22/20 23:27 133 H 26 H 93 03/22/20 23:21 155 H 117/78 03/22/20 23:17 117/78 03/22/20 23:10 90 24 93 03/22/20 20:47 36.5 C 110 H 22 115/73 91 03/22/20 19:10 93 H 24 122 H 03/22/20 18:18 110 H 104/86 98 03/22/20 17:58 121 H 27 H 97 03/22/20 17:52 116 H 22 117/79 98 03/22/20 17:20 126 H 18 107/78 97 03/22/20 16:53 144 H 24 112/83 98 03/22/20 16:48 144 H 20 116/96 97 03/22/20 16:39 155 H 20 105/72 97 03/22/20 16:38 136 H 34 H 105/72 97 03/22/20 16:29 156 H 28 H 97 03/22/20 16:01 128 H 24 102/72 93 03/22/20 16:00 22 93 03/22/20 15:45 138 H 25 H 116/83 95 03/22/20 15:30 119 H 26 H 94/78 L 94 03/22/20 15:26 95 03/22/20 15:15 143 H 151 H 28 H 117/103 H 117/103 H 96 03/22/20 15:12 36.6 C 160 H 24 115/98 90 Coding Level of Care Code Critical Care 1st 30-74 mins Diagnoses Admitted to intensive care unit Z78.9 Respiratory distress R06.03 Cough R05 Smoking F17.200 Hemoptysis R04.2 Elevated lactic acid level R79.89 Transaminitis R74.0 A-fib I48.91 Supratherapeutic INR R79.1 Time Spent (min) 74 Comment Please code [id number] and [id number]
[2020-03-23] MEDS: METOPROLOL TARTRATE 1 MG/ML VIAL IV PRN (01:59)
[2020-03-23 05:06] LABS: Hematocrit (blood only) 44.3 % (37-47); Hemoglobin 15.4 g/dL (12.0-16.0); Immature Granulocytes # (auto) 0.01 K/uL (0.00-0.02); Immature Granulocytes % (auto) 0.2 %; Lymphocytes # (auto) 0.76 K/uL (1.2-3.4); Lymphocytes % (auto) 18.4 %; Mean Corpuscular Hemoglobin 33.1 pg (25-34); Mean Corpuscular Hgb Conc 34.8 g/dL (32-36); Mean Corpuscular Volume 95.3 fL (80-100); Mean Platelet Volume 10.8 fL (7.4-10.4); Monocytes # (auto) 0.23 K/uL (0.11-0.59); Monocytes % (auto) 5.6 %; Neutrophils # (auto) 3.14 K/uL (1.4-6.5); Neutrophils % (auto) 75.8 %; Platelet Count 231 K/uL (130-400); RDW Coefficient of Variation 14.2 % (11.5-14.5); RDW Standard Deviation 48.4 fL (36.4-46.3); Red Blood Count 4.65 M/uL (4.2-5.4); White Blood Count 4.14 K/uL (4.8-10.8)
[2020-03-23 05:18] LABS: D Dimer 320 ug/L FEU (0-500)
[2020-03-23 05:28] LABS: INR 3.9 (0.9-1.1); Prothrombin Time 38.2 Seconds (9.0-12.0)
[2020-03-23 05:39] LABS: Albumin Level 3.1 gm/dl (3.4-5.0); BUN Creatinine Ratio 25.2 (10-20); Bilirubin Direct 0.6 mg/dl (0-0.2); Calcium 8.3 mg/dl (8.5-10.1); Creatinine Clr Calc Pharmacy 49.8 ml/min; Est GFR (African American) 69.9; Est GFR (Non-African American) 60.3; Magnesium 2.1 mg/dl (1.8-2.4); Potassium 5.2 mmol/L (3.5-5.1)
[2020-03-23 05:46] LABS: Bilirubin,Total 1.5 mg/dl (0.2-1); C Reactive Protein 3.77 mg/dl (0-0.29); Ferritin 134.3 ng/ml (8-388); Phosphorus 3.9 mg/dl (2.5-4.9); Thyroid Stimulating Hormone 0.549 uIu/ml (0.300-4.500); Total Protein 6.1 gm/dl (6.4-8.2)
[2020-03-23 06:09] LABS: iSTAT Allen Test Pass; iSTAT Art Bld Gas pCO2 Correct 36 mmHg (35-46); iSTAT Art Bld Gas pH Corrected 7.355 (7.35-7.45); iSTAT Arterial Blood Gas HCO3 20 meg/L (19-24); iSTAT Arterial Blood Gas pCO2 36 mmHg (35-46); iSTAT Arterial Blood Gas pH 7.36 (7.35-7.45); iSTAT Arterial Blood Gas pO2 88 mmHg (80-95); iSTAT Arterial Blood Gas pO2 C 88; iSTAT Carbon Dioxide 21 mmol/L (24-31); iSTAT FiO2 50 %; iSTAT Hematocrit 44 % (37-47); iSTAT Potassium 4.9 mmol/L (3.3-5.0); iSTAT Site L Radial; iSTAT Sodium 133 mmol/L (135-144)
[2020-03-23] MEDS: CEFEPIME 2,000 MG in SYRINGE 7.5 ML IV SCH (06:28)
--- NOTE | 2020-03-23 07:21 | Ultrasound Report ---
US liver CLINICAL HISTORY: Abnormal liver enzymes COMPARISON STUDY: CT scan performed 2007 FINDINGS: There is a right pleural effusion. There is trace perihepatic fluid. There is sludge/nonshadowing calculi within the gallbladder. There is mild gallbladder wall thickenin g. There is a 1 cm cystic focus within the right hepatic lobe demonstrating an echogenic rim. The additi onal hepatic cysts visualized the prior May 2008 study are not visualized. There is no ductal dilatation. The common bile duct measures 5 mm. There is no right-sided hydronephrosis. Echogenic densities the main portal vein, likely represent slow flow. IMPRESSION: 1. Sludge/nonshadowing calculi within the gallbladder. Mild gallbladder wall thickening 2. No evidence of ductal dilatation 3. Right pleural effusion 4. Trace right perihepatic fluid 5. Complex 1 cm right hepatic lobe cyst ACT 112: Negative or not required by law. Electronically signed by: Edilson John M.D. 03/23/2020 7:20 AM
[2020-03-23] MEDS ORDERED: METOPROLOL TARTRATE 1 MG/ML VIAL IV PRN (07:26)
--- NOTE | 2020-03-23 07:46 | XRay Report ---
XR chest 1V portable CLINICAL HISTORY: CHF vs pneumonia dyspnea COMPARISON STUDY: 03/22/2020. FINDINGS: Diffuse left upper lobe infiltrate persists. Pleural thickening over the right apex is note d and is unchanged. There is a left pleural effusion slightly increased in volume. There is a small right effusion slight ly diminished in volume. IMPRESSION: Findings consistent with components of congestive failure with a superimposed left upper lobe infiltrate. No major change from the prior exam. ACT 112: Negative or not required by law. The above report was generated using voice recognition software. It may contain grammatical, syntax or spelling errors. Electronically signed by: Mac Woody M.D. 03/23/2020 7:45 AM
--- NOTE | 2020-03-23 07:46 | XRay Report ---
XR KUB/Abdomen 1 view CLINICAL HISTORY: lactic acidosis COMPARISON STUDY: 06/18/2008 FINDINGS: There is no pathologic bowel dilatation. There are no calcifications suspicious for renal c alculi. An IVC filter is visualized. There are bilateral pleural effusions. There are pelvic basin ca lcifications likely representing phleboliths. IMPRESSION: 1. Nonobstructive bowel gas pattern 2. Bilateral pleural effusions ACT 112: Negative or not required by law. Electronically signed by: Edilson John M.D. 03/23/2020 7:45 AM
[2020-03-23] MEDS ORDERED: DIGOXIN 125 MCG in SYRINGE 9.5 ML IV STA (07:59)
[2020-03-23] MEDS: GABAPENTIN 600 MG TAB PO SCH ×3 (08:26→21:28)
[2020-03-23] MEDS: FUROSEMIDE 40 MG in SYRINGE 0 ML IV SCH ×2 (08:26→18:44)
[2020-03-23] MEDS: VALACYCLOVIR HCL 500 MG TABLET PO SCH (08:26)
[2020-03-23] MEDS: clonazePAM 0.5 MG TAB PO SCH ×2 (08:26→21:27)
[2020-03-23] MEDS: DULOXETINE HCL 20 MG CAP PO SCH (08:27)
[2020-03-23] MEDS ORDERED: METOPROLOL SUCC 25MG EXT REL TAB PO SCH (09:00)
[2020-03-23 10:09] LABS: Hepatitis B Surface Antigen Neg (Neg)
[2020-03-23 10:38] LABS: Hepatitis C IgG 13Yrs+Old_Rflx Neg (Neg)
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
[2020-03-23] MEDS ORDERED: DIGOXIN 125 MCG in SYRINGE 9.5 ML IV ONE (13:00)
[2020-03-23] MEDS: METOPROLOL TARTRATE 25 MG TAB PO SCH ×3 (14:04→21:27)
[2020-03-23 15:42] LABS: Appearance Urine Clear (Clear); Bilirubin Urine Negative (Negative); Blood Urine Negative (Negative); Color Urine Yellow; Glucose Urine UA Negative (Negative); Ketones Urine Negative (Negative); Leukocyte Esterase Urine Negative (Negative); Nitrite Urine Negative (Negative); Protein Urine Negative (Negative); Urobilinogen Urine Negative (Negative)
[2020-03-23] MEDS ORDERED: ACETAMINOPHEN 325 MG TAB PO ONE (21:37)
--- NOTE | 2020-03-23 22:23 | Hospitalist Progress Note ---
Date of Service March 23, 2020 Assessment & Plan (1) Acute HFrEF (heart failure with reduced ejection fraction): Cont diuresis with Lasix. Metoprolol added per cardiology today (2) Atrial fibrillation with RVR: Rate control with metoprolol and digoxin. Cardio prefers amio however this is limited in setting of elevated transaminases. INR was supratherapeutic yesterday>9, now 3.9. Cont holding warfarin today and trending daily INR. (3) Hypoxia: 2/2 acute heart failure. Cont treatment listed above. Further medication titration per Cardiology. (4) Transaminitis: Likely resulting from passive congestion of liver in fluid overload. Abdominal exam is benign. US liver also reveals evidence of sludge/stones and a complex cyst. Consider consulting GI for recs on further workup. May need MRCP. (5) Diarrhea: IBS, symptom management PRN (6) Smoking: Strongly advised to quit, which she had done for 20 years prior to restarting recently. (7) Supratherapeutic INR: as above. (8) DVT prophylaxis: warfarin on hold; supratherapeutic INR Full Code Dispo-to home when medically stable [facility] and [facility]ticipated Discharge Date Admission Date: March 22, 2020 Subjective feels improved since yesterday still with dyspnea with minimal movement tachy Review of Systems Review of Systems: All systems reviewed & are unremarkable except as noted in Subjective Physical Exam Physical Exam: CONSTITUTIONAL: WNWD, vitals as above, generally well- appearing EYES: normal conjunctivae, no scleral icterus ENT: external ear and nose normal, MMM NECK: trachea midline, +JVD RESPIRATORY: clear to auscultation bilaterally except for some crackles on the left base, no rales or wheezes, normal respiratory effort, some conversational dyspnea present. CARDIOVASCULAR: tachy rate and irregular rhythm, S1 and 2 heard without murmurs, gallops or rubs, + JVD, no peripheral edema CHEST: inspection of chest was normal GASTROINTESTINAL: soft, nontender, nondistended MUSCULOSKELETAL: strength 5/5 throughout, head is normocephalic and atraumatic SKIN: warm and dry NEUROLOGIC: CN 2-12 grossly intact, normal cognition, normal speech, no tremor, no gross focal deficits. PSYCHIATRIC: alert cooperative and oriented to person, place and time. Results & Data Results & Data ([place]) Vital Signs (Past 12 Hours) Vital Signs Temp Pulse Resp BP Pulse Ox 03/23/20 09:00 135 H 27 H 91 03/23/20 08:55 122 H 28 H 111/63 88 L 03/23/20 08:45 119 H 24 91 03/23/20 08:32 132 H 28 H 106/72 90 03/23/20 08:30 127 H 26 H 92 03/23/20 08:25 133 H 26 H 92/75 L 92 03/23/20 08:24 137 H 03/23/20 08:15 128 H 24 93 03/23/20 08:14 125 H 104/87 03/23/20 08:00 36.4 C L 126 H 20 92 03/23/20 07:55 121 H 23 104/87 93 03/23/20 07:47 123 H 26 H 94/78 L 94 03/23/20 07:45 124 H 24 94 03/23/20 07:44 117 H 27 H 175/163 H 94 03/23/20 07:30 135 H 21 94 03/23/20 07:15 123 H 25 H 93 03/23/20 07:00 140 H 32 H 93 03/23/20 06:45 134 H 23 94 03/23/20 05:12 115 H 25 H 94 03/23/20 04:30 141 H 24 93 03/23/20 04:25 111 H 28 H 98/70 L 93 03/23/20 04:20 132 H 25 H 97/75 L 92 03/23/20 04:19 126 H 16 89/75 L 92 03/23/20 04:17 136 H 26 H 103/80 93 03/23/20 04:14 138 H 22 101/82 03/23/20 04:00 37 C 115 H 18 93 03/23/20 03:34 135 H 20 94 03/23/20 03:30 124 H 20 93 03/23/20 03:09 123 H 24 96/77 L 94 03/23/20 03:04 127 H 21 93 03/23/20 03:00 128 H 20 93 03/23/20 02:36 123 H 20 93 03/23/20 02:35 110 H 24 108/78 93 03/23/20 02:30 132 H 24 93 03/23/20 02:04 141 H 25 H 101/82 94 03/23/20 02:00 119 H 30 H 93 03/23/20 01:55 117 H 27 H 117/73 93 03/23/20 01:47 124 H 24 120/80 93 03/23/20 01:34 120 H 34 H 113/85 95 03/23/20 01:30 131 H 32 H 94 03/23/20 01:23 36.9 C 132 H 30 H 104/79 94 03/23/20 01:01 90 Laboratory Results Short CBC 03/23/20 Range/Units 04:43 WBC 4.14 L (4.8-10.8) K/uL Hgb 15.4 (12.0-16.0) g/dL Hct 44.3 (37-47) % Plt Count 231 (130-400) K/uL BMP 03/23/20 04:43 Sodium 136 Potassium 5.2 H D Chloride 107 Carbon Dioxide 23 BUN 24 H Creatinine 0.96 Glucose 143 H Calcium 8.3 L Cardiac Enzymes 03/23/20 Range/Units 04:43 Total Creatine Kinase 262 H (26-192) U/L Liver Function 03/23/20 Range/Units 04:43 Total Bilirubin 1.5 H (0.2-1) mg/dl Direct Bilirubin 0.6 H (0-0.2) mg/dl AST 198 H (15-37) U/L ALT 152 H (12-78) U/L Alkaline Phosphatase 64 (45-117) U/L Albumin 3.1 L (3.4-5.0) gm/dl Urine 03/23/20 Range/Units 12:43 Urine Color Yellow Urine Appearance Clear (Clear) Urine pH 5.0 (4.5-7.5) Ur Specific [place] 1.010 (1.000-1.030) Urine Protein Negative (Negative) Urine Glucose (UA) Negative (Negative) Diagnostic Findings US liver CLINICAL HISTORY: Abnormal liver enzymes COMPARISON STUDY: CT scan performed 2007 FINDINGS: There is a right pleural effusion. There is trace perihepatic fluid. There is sludge/nonshadowing calculi within the gallbladder. There is mild gallbladder wall thickening. There is a 1 cm cystic focus within the right hepatic lobe demonstrating an echogenic rim. The additional hepatic cysts visualized the prior May 2008 study are not visualized. There is no ductal dilatation. The common bile duct measures 5 mm. There is no right-sided hydronephrosis. Echogenic densities the main portal vein, likely represent slow flow. IMPRESSION: 1. Sludge/nonshadowing calculi within the gallbladder. Mild gallbladder wall thickening 2. No evidence of ductal dilatation 3. Right pleural effusion 4. Trace right perihepatic fluid 5. Complex 1 cm right hepatic lobe cyst XR KUB/Abdomen 1 view CLINICAL HISTORY: lactic acidosis COMPARISON STUDY: 06/18/2008 FINDINGS: There is no pathologic bowel dilatation. There are no calcifications suspicious for renal calculi. An IVC filter is visualized. There are bilateral pleural effusions. There are pelvic basin calcifications likely representing phleboliths. IMPRESSION: 1. Nonobstructive bowel gas pattern 2. Bilateral pleural effusions XR chest 1V portable CLINICAL HISTORY: CHF vs pneumonia dyspnea COMPARISON STUDY: 03/22/2020. FINDINGS: Diffuse left upper lobe infiltrate persists. Pleural thickening over the right apex is noted and is unchanged. There is a left pleural effusion slightly increased in volume. There is a small right effusion slightly diminished in volume. IMPRESSION: Findings consistent with components of congestive failure with a superimposed left upper lobe infiltrate. No major change from the prior exam.
[2020-03-24 05:07] LABS: Eosinophils # (auto) 0.03 K/uL (0-0.5); Eosinophils % (auto) 0.3 %; Hematocrit (blood only) 40.8 % (37-47); Hemoglobin 13.9 g/dL (12.0-16.0); Immature Granulocytes # (auto) 0.01 K/uL (0.00-0.02); Immature Granulocytes % (auto) 0.1 %; Lymphocytes # (auto) 1.17 K/uL (1.2-3.4); Lymphocytes % (auto) 11.6 %; Mean Corpuscular Hemoglobin 32.6 pg (25-34); Mean Corpuscular Hgb Conc 34.1 g/dL (32-36); Mean Corpuscular Volume 95.8 fL (80-100); Monocytes # (auto) 0.96 K/uL (0.11-0.59); Monocytes % (auto) 9.5 %; Neutrophils # (auto) 7.92 K/uL (1.4-6.5); Neutrophils % (auto) 78.5 %; Platelet Count 205 K/uL (130-400); RDW Coefficient of Variation 14.2 % (11.5-14.5); RDW Standard Deviation 49.3 fL (36.4-46.3); Red Blood Count 4.26 M/uL (4.2-5.4); White Blood Count 10.09 K/uL (4.8-10.8)
[2020-03-24 05:19] LABS: INR 1.5 (0.9-1.1); Prothrombin Time 15.5 Seconds (9.0-12.0)
[2020-03-24 05:33] LABS: Albumin Level 2.6 gm/dl (3.4-5.0); BUN Creatinine Ratio 30.2 (10-20); Bilirubin Direct 0.3 mg/dl (0-0.2); Bilirubin,Total 0.8 mg/dl (0.2-1); Calcium 8.2 mg/dl (8.5-10.1); Creatinine Clr Calc Pharmacy 46.8 ml/min; Est GFR (Non-African American) 56.1; Magnesium 1.8 mg/dl (1.8-2.4); Total Protein 5.3 gm/dl (6.4-8.2); Troponin I 0.017 ng/ml (0-0.045)
--- NOTE | 2020-03-24 07:42 | Critical Care Progress Note ---
Date of Service March 24, 2020 Assessment & Plan (1) Hypoxia: Impression: 69-year-old female with A. fib with RVR and exacerbation of heart failure. Echocardiogram demonstrates new cardiomyopathy. Unclear if this is tachycardia induced cardiomyopathy or an alternative etiology. She is impr oskar with diuresis and rate control. Recommendations: 1. Acute hypoxemic respiratory failure: Patient is improved with diuresis and heart rate control. She no longer requires BiPAP. Continue oxygen titrated to keep saturations at or above 88%. Continue diuresis recommended. 2. Atrial fibrillation with rapid ventricular response: Continue metoprolol and digoxin. Her INR is now drifted down to 1.5. Will start therapeutic Lovenox at this point time. Defer to cardiology and primary service as to when to reinitiate Coumadin or whether or not the patient would be better served by a DOAC. 3. Bilateral pleural effusions: Effusions are noted on echocardiogram, chest x- ray, and liver ultrasound. She is not particularly symptomatic at this point time and would not recommend thoracentesis as these are likely transudate of related to her fluid overload and heart failure. 4. PT OT consultations. Out of bed as tolerated. 5. Abnormal LFTs: AST and ALT decreasing today. Total bili now normal and direct bili decreasing. Clinical exam reassuring. Continue to follow clinically. Patient is appropriate to transfer out of the intensive care unit to the telemetry service. Defer transfer orders to admitting hospitalist. Will sign off when patient leaves ICU. Feel free to contact us with additional questions or concerns (2) A-fib: (3) Dyspnea: Admission and Anticipated Discharge Date Admission Date: March 22, 2020 Subjective Patient seen and examined. She is doing well. She is sitting up in bed. She has been up to use the bedside commode. She is tolerating a diet. She is been off BiPAP. She is down to oxygen at 3 L/min. No chest pain or palpitations. Her heart rate is better controlled currently but she intermittently remains above 100. She remains in atrial fibrillation. Review of Systems Review of Systems: All systems reviewed & are unremarkable except as noted in HPI & below Physical Exam Constitutional: WD/WN, vitals as above Neck: trachea midline, no thyromegaly Respiratory: normal respiratory effort Auscultation: + rales; no wheezes Cardiovascular: Rate/Rhythm: + tachycardic and + irregularly irregular Heart Sounds: normal S1 and normal S2; no murmur Gastrointestinal (Abdomen): normal bowel sounds, soft, nontender, no hepatosplenomegaly Musculoskeletal: Extremities: extremities normal to inspection Skin: no rashes, warm and dry Neurologic: Nonfocal exam Lymphatic: no cervical lymphadenopathy Results & Data Results & Data ([facility]) Vital Signs (Past 12 Hours) Vital Signs Temp Pulse Resp BP Pulse Ox 03/24/20 04:12 36.5 C 113 H 22 96/74 L 96 03/24/20 03:13 111 H 21 96/69 L 96 03/24/20 02:13 89 30 H 119/71 94 03/24/20 01:13 117 H 33 H 94/66 L 92 03/24/20 00:13 36.6 C 120 H 27 H 93/75 L 93 03/24/20 00:00 109 H 03/23/20 23:13 118 H 29 H 96/68 L 93 03/23/20 22:12 122 H 22 111/64 93 03/23/20 21:12 124 H 24 105/72 92 03/23/20 20:12 36.8 C 134 H 34 H 114/85 03/23/20 19:42 125 H 19 100/75 93 Laboratory Results 03/24/20 04:55 03/24/20 04:55 Diagnostic Findings Liver ultrasound showing sludge in the gallbladder with some gallbladder wall t hickening but no evidence of ductal dilatation. Trace perihepatic fluid and complex 1 cm right hepatic cyst. Right pleural effusion again noted. Echocardiogram from 03/23/2020 showed atrial fibrillation with rapid ventricular response. EF severely reduced at 25 to 30%. Right ventricular systolic function reduced. Moderate to severe mitral regurgitation. Right atrial pressure of 15. Right pleural effusion again noted Coding Level of Care Code 58002 Subseq Hosp Care Lvl 3 Diagnoses Hypoxia R09.02 A-fib I48.91 Dyspnea R06.00
--- NOTE | 2020-03-24 08:14 | Electrocardiogram Report ---
Test Reason : Blood Pressure : / mmHG Vent. Rate : 122 BPM Atrial Rate : 156 BPM P-R Int : 000 ms QRS Dur : 082 ms QT Int : 344 ms P-R-T Axes : 000 117 064 degrees QTc Int : 490 ms Atrial fibrillation with rapid ventricular response Possible Old Lateral infarct (cited on or before 22-MAR-2020) Abnormal ECG When compared with ECG of 22-MAR-2020 15:11, No significant change was found Confirmed by Tom Means ([id number]) on 03/24/2020 8:14:43 AM Referred By: REFERRED SELF Confirmed By:Tom Means
--- NOTE | 2020-03-24 08:16 | Electrocardiogram Report ---
Test Reason : Blood Pressure : / mmHG Vent. Rate : 117 BPM Atrial Rate : 000 BPM P-R Int : 000 ms QRS Dur : 086 ms QT Int : 344 ms P-R-T Axes : 000 122 -53 degrees QTc Int : 479 ms Atrial fibrillation with rapid ventricular response Possible Old Lateral infarct (cited on or before 22-MAR-2020) Abnormal ECG When compared with ECG of 23-MAR-2020 08:20, Nonspecific T wave abnormality, worse in Anterior leads Confirmed by Tom Means ([id number] on 03/24/2020 8:15:23 AM Referred By: REFERRED SELF Confirmed By:Tom Means
[2020-03-24] MEDS: FUROSEMIDE 40 MG in SYRINGE 0 ML IV SCH ×2 (08:20→16:59)
[2020-03-24] MEDS: GABAPENTIN 600 MG TAB PO SCH ×3 (08:20→20:32)
[2020-03-24] MEDS: clonazePAM 0.5 MG TAB PO SCH ×2 (08:21→20:32)
[2020-03-24] MEDS: METOPROLOL TARTRATE 25 MG TAB PO SCH ×4 (08:21→20:32)
[2020-03-24] MEDS: DULOXETINE HCL 20 MG CAP PO SCH (08:33)
[2020-03-24] MEDS: VALACYCLOVIR HCL 500 MG TABLET PO SCH (08:33)
--- NOTE | 2020-03-24 08:44 | Electrocardiogram Report ---
Test Reason : Blood Pressure : / mmHG Vent. Rate : 165 BPM Atrial Rate : 159 BPM P-R Int : 000 ms QRS Dur : 080 ms QT Int : 258 ms P-R-T Axes : 000 118 009 degrees QTc Int : 427 ms Atrial fibrillation with rapid ventricular response Abnormal ECG When compared with ECG of 19-MAR-2017 06:13, Atrial fibrillation has replaced Sinus rhythm Vent. rate has increased BY 110 BPM Nonspecific T wave abnormality now evident in Inferior leads Confirmed by Glenn Cisneros ([id number]) on 03/24/2020 8:44:15 AM Referred By: Confirmed By:Glenn Cisneros
[2020-03-24] MEDS ORDERED: HEPARIN IV BOLUS 5,000 UNITS in SYRINGE 0 ML IV ONE (10:50)
[2020-03-24 10:58] LABS: Partial Thromboplastin Ratio 0.9; Partial Thromboplastin Time 26.3 Seconds (21.0-31.0)
[2020-03-24] MEDS: Heparin Adult STANDARD Wt-Based Dextrose 5% 25,000 units/500 mL IV SCH (11:01)
--- NOTE | 2020-03-24 11:28 | Cardiology Progress Note ---
Date of Service March 24, 2020 Assessment & Plan (1) Acute HFrEF (heart failure with reduced ejection fraction): Acute, newly diagnosed, systolic heart failure decompensation, in the setting of what is likely tachycardia induced cardiomyopathy, I suspect patient reverted to atrial fibrillation approximately 6 months ago based on her symptoms. Her liver function tests (transaminase) remain elevated, likely due to passive liver congestion from CHF. Although I think amiodarone would provide help in terms of acute rate and future rhythm control, we need to wait until her transaminases improve. Rate control: Continue metoprolol tartrate 12.5 mg 4 times daily Add digoxin 250 mcg p.o. daily Continue IV furosemide 40 mg IV twice daily With regards to stroke prophylaxis, she received vitamin K for an elevated INR, INR is currently 1.5, will proceed with heparin bridge, and start back low-dose Coumadin 2.5 mg daily. Subjective Patient feeling tired, but overall improved compared to admission. Atrial fibrillation with mildly elevated ventricular rate still present, telemetry reveals ventricular rate of 110 bpm, blood pressure 102/74. Review of Systems Review of Systems: All systems reviewed & are unremarkable except as noted in HPI & below Physical Exam Physical Exam: Temp Pulse Resp BP Pulse Ox 35.7 C L 111 H 25 H 109/76 94 03/24/20 08:45 03/24/20 10:00 03/24/20 10:00 03/24/20 10:00 03/24/20 10:00 Constitutional: No acute distress, chronically ill in appearance Respiratory: Mildly decreased breath sounds in the bases Cardiovascular: Rate/Rhythm: + tachycardic and + irregularly irregular Heart Sounds: + murmur (1/6 systolic murmur) Vessels: no JVD Extremities: no edema Gastrointestinal (Abdomen): normal bowel sounds, soft, nontender, no hepatosplenomegaly Neurologic: PERRL, EOMI, accommodation nl, no face palsy, no dysarthria Results & Data Vital Signs (Past 12 Hours) Vital Signs Temp Pulse Resp BP Pulse Ox 03/24/20 10:00 111 H 25 H 109/76 94 03/24/20 09:25 133 H 27 H 105/76 94 03/24/20 08:45 35.7 C L 03/24/20 08:13 129 H 34 H 102/74 94 03/24/20 08:00 131 H 24 94 03/24/20 07:14 104 H 18 94 03/24/20 07:13 94 H 19 94/62 L 96 03/24/20 04:12 36.5 C 113 H 22 96/74 L 96 03/24/20 03:13 111 H 21 96/69 L 96 03/24/20 02:13 89 30 H 119/71 94 03/24/20 01:13 117 H 33 H 94/66 L 92 03/24/20 00:13 36.6 C 120 H 27 H 93/75 L 93 03/24/20 00:00 109 H Laboratory Results Cardiac Enzymes 03/24/20 Range/Units 04:55 AST 149 H (15-37) U/L Troponin I 0.017 (0-0.045) ng/ml Coagulation INR today 02/26/20=1.5 03/24/20 Range/Units 04:55 PT 15.5 H (9.0-12.0) Seconds APTT 26.3 (21.0-31.0) Seconds CBC 03/24/20 Range/Units 04:55 WBC 10.09 (4.8-10.8) K/uL RBC 4.26 (4.2-5.4) M/uL Hgb 13.9 (12.0-16.0) g/dL Hct 40.8 (37-47) % Plt Count 205 (130-400) K/uL Neut # (Auto) 7.92 H (1.4-6.5) K/uL Lymph # (Auto) 1.17 L (1.2-3.4) K/uL [place] # (Auto) 0.96 H (0.11-0.59) K/uL Eos # (Auto) 0.03 (0-0.5) K/uL Baso # (Auto) 0.00 (0-0.2) K/uL Comprehensive Metabolic Panel 03/24/20 Range/Units 04:55 Sodium 139 (136-145) mmol/L Potassium 4.0 D (3.5-5.1) mmol/L Chloride 107 (98-107) mmol/L Carbon Dioxide 27 (21-32) mmol/L BUN 31 H (7-18) mg/dl Creatinine 1.02 (0.6-1.2) mg/dl Glucose 133 H (70-99) mg/dl Calcium 8.2 L (8.5-10.1) mg/dl Direct Bilirubin 0.3 H (0-0.2) mg/dl AST 149 H (15-37) U/L ALT 139 H (12-78) U/L Alkaline Phosphatase 61 (45-117) U/L Total Protein 5.3 L (6.4-8.2) gm/dl Albumin 2.6 L (3.4-5.0) gm/dl Intake and Output 03/23/20 03/24/20 03/24/20 22:59 06:59 14:59 Intake Total 300 / 750 200 / 200 Output Total 300 / 1800 500 / 1800 901 / 901 Balance 0 / -1050 -500 / -1050 -701 / -701 Intake: Oral 300 / 750 200 / 200 Output: Urine 300 / 1800 500 / 1800 900 / 900 # Bowel Movements Other: Weight 62.3 kg
--- NOTE | 2020-03-24 11:49 | Hospitalist Progress Note ---
Date of Service March 24, 2020 Assessment & Plan (1) Acute hypoxemic respiratory failure: sepsis was ruled out, antibiotics were stopped. Hypoxia continues to improve with diuresis. (2) Acute HFrEF (heart failure with reduced ejection fraction): Cont diuresis with Lasix. Metoprolol added per cardiology today (3) Atrial fibrillation with RVR: Rate control with metoprolol and digoxin. Cardio prefers amio however this is limited in setting of elevated transaminases. INR was supratherapeutic and is now 1.5. She was restarted on warfarin 2.5 daily and heparin bridge. Trend INR. (4) Hypoxia: 2/2 acute heart failure. Cont treatment listed above. Further medication titration per Cardiology. (5) Transaminitis: Likely resulting from passive congestion of liver in fluid overload. Abdominal exam is benign. US liver also reveals evidence of sludge/stones and a complex cyst. Consult GI to ensure no further workup is recommended. (6) Diarrhea: IBS, symptom management PRN (7) Smoking: Strongly advised to quit, which she had done for 20 years prior to restarting recently. (8) Supratherapeutic INR: resolved. restart AC as above. (9) DVT prophylaxis: heparin/warfarin Full Code Dispo-transfer to PCU status. DO [facility] Hospitalist Admission and Anticipated Discharge Date Admission Date: March 22, 2020 Subjective Pt tearful this morning emotional and reflective Denies pain still tachy in the low 100s SOB has improved She is tolerating PO Review of Systems Review of Systems: All systems reviewed & are unremarkable except as noted in Subjective Physical Exam Physical Exam: CONSTITUTIONAL: WNWD, vitals as above, generally well- appearing EYES: normal conjunctivae, no scleral icterus ENT: external ear and nose normal, MMM NECK: trachea midline, +JVD RESPIRATORY: crackles on the left base have improved but still slightly present, no rales or wheezes, normal respiratory effort, conversational dyspnea has improved. CARDIOVASCULAR: tachy rate and irregular rhythm, S1 and 2 heard without murmurs, gallops or rubs, + JVD, no peripheral edema CHEST: inspection of chest was normal GASTROINTESTINAL: soft, nontender, nondistended MUSCULOSKELETAL: strength 5/5 throughout, head is normocephalic and atraumatic SKIN: warm and dry NEUROLOGIC: CN 2-12 grossly intact, normal cognition, normal speech, no tremor, no gross focal deficits. PSYCHIATRIC: alert cooperative and oriented to person, place and time. Results & Data Results & Data ([facility]) Vital Signs (Past 12 Hours) Vital Signs Temp Pulse Resp BP Pulse Ox 03/24/20 10:00 111 H 25 H 109/76 94 03/24/20 09:25 133 H 27 H 105/76 94 03/24/20 08:45 35.7 C L 03/24/20 08:13 129 H 34 H 102/74 94 03/24/20 08:00 131 H 24 94 03/24/20 07:14 104 H 18 94 03/24/20 07:13 94 H 19 94/62 L 96 03/24/20 04:12 36.5 C 113 H 22 96/74 L 96 03/24/20 03:13 111 H 21 96/69 L 96 03/24/20 02:13 89 30 H 119/71 94 03/24/20 01:13 117 H 33 H 94/66 L 92 03/24/20 00:13 36.6 C 120 H 27 H 93/75 L 93 03/24/20 00:00 109 H Laboratory Results Short CBC 03/24/20 Range/Units 04:55 WBC 10.09 (4.8-10.8) K/uL Hgb 13.9 (12.0-16.0) g/dL Hct 40.8 (37-47) % Plt Count 205 (130-400) K/uL BMP 03/24/20 04:55 Sodium 139 Potassium 4.0 D Chloride 107 Carbon Dioxide 27 BUN 31 H Creatinine 1.02 Glucose 133 H Calcium 8.2 L Cardiac Enzymes 03/24/20 Range/Units 04:55 Troponin I 0.017 (0-0.045) ng/ml Liver Function 03/24/20 Range/Units 04:55 Total Bilirubin 0.8 D (0.2-1) mg/dl Direct Bilirubin 0.3 H (0-0.2) mg/dl AST 149 H (15-37) U/L ALT 139 H (12-78) U/L Alkaline Phosphatase 61 (45-117) U/L Albumin 2.6 L (3.4-5.0) gm/dl Urine 03/23/20 Range/Units 12:43 Urine Color Yellow Urine Appearance Clear (Clear) Urine pH 5.0 (4.5-7.5) Ur Specific [place] 1.010 (1.000-1.030) Urine Protein Negative (Negative) Urine Glucose (UA) Negative (Negative) Medications Administered Current Inpatient Medications Clonazepam (Klonopin) 0.5 mg PO BID [facility] Stop: 04/21/20 20:59 Last Admin: 03/24/20 08:21 Dose: 0.5 mg Documented by: Digoxin (Lanoxin) 0.25 mg PO DAILY@1600 [facility] Stop: 04/23/20 15:59 Duloxetine HCl (Cymbalta) 20 mg PO DAILY [facility] Stop: 04/22/20 08:59 Last Admin: 03/24/20 08:33 Dose: 20 mg Documented by: Gabapentin (Neurontin) 600 mg PO TID [facility] Stop: 04/21/20 20:59 Last Admin: 03/24/20 08:20 Dose: 600 mg Documented by: Furosemide 40 mg/ Syringe 4 mls @ 4 mls/min IV [id number] [facility] Stop: 04/22/20 08:59 Last Admin: 03/24/20 08:20 Dose: 4 mls/min Documented by: Heparin Sodium/Dextrose (Heparin Sodium/Dextrose) 25,000 units in 500 mls @ 21 mls/hr IV .[id number] [facility]; Protocol Stop: 04/23/20 10:44 Last Admin: 03/24/20 11:01 Dose: 1,050 units/hr, 21 mls/hr Documented by: Levalbuterol HCl (Xopenex Hfa) 2 puffs INH QID PRN; Protocol PRN Reason: Wheezing Stop: 04/21/20 19:39 Lorazepam (Ativan) 0.5 mg PO Q8H PRN PRN Reason: Anxiety Stop: 04/21/20 21:53 Metoprolol Tartrate (Lopressor) 5 mg IV Q4 PRN PRN Reason: HR > 110 Stop: 04/21/20 19:39 Last Admin: 03/23/20 08:14 Dose: 2.5 mg Documented by: Metoprolol Tartrate (Lopressor) 12.5 mg PO QID [facility] Stop: 04/22/20 12:59 Last Admin: 03/24/20 08:21 Dose: 12.5 mg Documented by: Valacyclovir HCl (Valtrex) 500 mg PO DAILY [facility] Stop: 04/02/20 08:59 Last Admin: 03/24/20 08:33 Dose: 500 mg Documented by: Warfarin Sodium (Coumadin) 2.5 mg PO DAILY@1600 [facility] Stop: 04/23/20 15:59
[2020-03-24] MEDS ORDERED: AMIODARONE 200 MG TAB PO SCH (12:00)
--- NOTE | 2020-03-24 14:21 | Gastrointestinal Consultation ---
Date of Consultation March 24, 2020 Assessment & Plan (1) Transaminitis: Ms. De Souzas transaminitis is unlikely to be related to her gallstones because she does not describe any symptoms of biliary colic and because her LFT elevation more of a hepatocellular pattern than obstructive pattern (Alk phos and bili are normal). The elevated AST/ALT are more likely related to congestive hepatopathy and transient decrease in blood supply to the liver during the time that she was feeling weak just before admission. Would expect LFTs to slowly improve over the next few weeks with improvement in cardiac function. Present on Admission?: Yes (2) Irritable bowel syndrome with diarrhea: Diarrhea most likely secondary to IBS-D. C-diff is negative. Will watch for results of stool culture. OK to use antidiarrheals if stool culture is negative. Present on Admission?: Yes Supervising Physician Co-Signing Physician Notes I have personally seen and examined the patient with BETH Cee on 03/24/20. Her note reflects my exam and findings. I agree with her impression and plan. Picture c/w cardiac hepatopathy. Follow liver enzymes. Nico Butt History of Present Illness Reason for Consultation: elevated LFTs, likely HF but +stones Requesting Physician: Dr. Kay Attending Physician: Evie Kay, DO History of Present Illness Ms. Kristen Carroll is a 69 yr old female pt of Dr. Darrius Leger with a hx of HTN, migraines, PE, on warfarin who smokes presented to the ED yesterday for rapid heartbeat, headache and weakness. Cardiology is treating for A-fib with RVR and new CHF. GI is consulted today for elevated transaminases. US with gallstones with mild gallbladder wall thickening, no biliary ductal dilation. When asked about abdominal pain, she reports having had sore upper abdomen muscles from coughing last week but denies any post prandial RUQ pain/nausea. She does not have a family hx of gallbladder disease. She denies ever being told (previously) that she has elevated liver enzymes. Denies any yellow skin or eyes. Regarding risks for liver injury, she denies ever drinking excessive amts of alcohol. She takes one tylenol tab a few times/month for migraines. She has not been significantly overweight. She does not have a family hx of liver disease. Denies recreational drug use. I reviewed her home medication list and do not see any medications that typically cause transaminitis. Most recent prior LFTs in the OP setting were in 2019 and were normal. AST 146 (on arrival) ->198 (yesterday) -> 149 (today); ALT 110->152-> 139. T bili was minimally elevated on arrival, now normal. Alk Phos has remained normal. Allergies Allergy/AdvReac Type Severity Reaction Status Date / Time meperidine Allergy Intermediate ITCHING Verified 03/22/20 16:53 morphine Allergy Intermediate Hives, Verified 03/22/20 16:53 itching levofloxacin [From Levaquin] Allergy Unknown Unknown Verified 03/22/20 16:53 tetanus toxoid, adsorbed Allergy Unknown Anaphylaxis Verified 03/22/20 16:54 quetiapine AdvReac Unknown Symptoms Verified 03/18/17 15:33 worsen risperidone AdvReac Unknown Symptoms Verified 03/18/17 15:33 worsen tizanidine AdvReac Unknown Tachycardia Verified 03/22/20 16:53 Home Medications Home Medications Medication Instructions Recorded Confirmed Type carisoprodol 350 mg PO TID PRN 03/22/20 03/22/20 History clonazepam 0.5 mg PO BID 03/22/20 03/22/20 History duloxetine 20 mg PO DAILY 03/22/20 03/22/20 History gabapentin 600 mg PO TID 03/22/20 03/22/20 History metoprolol succinate 12.5 mg PO BID 03/22/20 03/22/20 History onabotulinumtoxinA [Botox] 155 unit IM DIRECTED 03/22/20 03/22/20 History sumatriptan succinate 25 - 50 mg PO DIRECTED PRN MDD 03/22/20 03/22/20 History 5 TABLETS/DAY valacyclovir 500 mg PO DAILY 03/22/20 03/22/20 History warfarin 3.75 mg PO 2XWK 03/22/20 03/22/20 History warfarin 7.5 mg PO 5XWK 03/22/20 03/22/20 History Patient History Medical History Generalized anxiety disorder (Chronic) History of benign breast biopsy History of cervical dysplasia History of colon polyps History of herpes genitalis History of migraine Hx of skin cancer, basal cell Irritable bowel syndrome with diarrhea (Chronic) Osteoporosis Paroxysmal atrial fibrillation Paroxysmal supraventricular tachycardia Pulmonary embolism (Chronic) 2007, 2013 Recurrent major depression (Chronic) Surgical History S/P IVC filter (Chronic) Family History Father Hypertension Stroke Myocardial infarction Sister Hypertension Brother Hypertension Mother Atrial fibrillation Social History Smoking Status: Current every day smoker Tobacco Type: Cigarettes Second Hand Exposure: No; Do You Dip or Chew Tobacco: No; Tobacco Cessation Education Requested by Patient: No Hx Alcohol Use: No Hx Substance Use: No Preferred Language: Georgian Communication Ability: Effective Beliefs That Will Affect Care: None marital status: Legally Current Living Situation: Alone Other Information That Helps Us Care for You: No Feels Safe at Home: Yes Safety Concerns: Feels Safe At This Time Review of Systems Review of Systems: ROS: Gen: Denies weakness, fevers, weight loss Eyes: No eye redness, or pain, no recent vision changes Resp: No SOB, no cough Cardio: No palpitations/irregular beats, no chest pain GI: No abdominal pain, no nausea/vomiting : Denies pain on urination Skin: No jaundice, itching or new rashes Constitutional: +weakness, no weight loss, no denies fevers Eyes: No eye redness, no impaired vision or double vision Ear, Nose, Mouth, Throat: no problem reported Respiratory: had a significant cough last week, improved now Cardiovascular: + dyspnea (prior to arrival), + palpitations and + lighthea dedness (prior to arrival); no edema Additional Comments: + palpitations, improved since arrival. Gastrointestinal: chronic diarrhea, was worsened over the week, improved since admission Genitourinary: no dysuria Integumentary: no rash, no yellowing of the skin and no axillary lymphadenopathy Neurologic: no gait abnormality, no unsteadiness and no falls Psychiatric: no anxiety and no confusion Endocrine: + fatigue Hematologic / Lymphatic: no easy bleeding, no easy bruising, no coagulopathy and no unexplained weight loss Allergy / Immunological: + wheezing and + cough; no tongue swelling and no urticaria Physical Exam Constitutional: WD/WN, vitals as above + thin Eyes: PERRL, conjunctivae normal, anicteric sclerae ENMT: external ear and nose normal, oropharynx normal Neck: trachea midline, no thyromegaly Respiratory: normal respiratory effort, lungs clear to auscultation Cardiovascular: RRR, no murmur, no edema Gastrointestinal (Abdomen): normal bowel sounds, soft, nontender, no hepatosplenomegaly Musculoskeletal: no cyanosis or clubbing, extremities motor strength 5/5 Skin: no rashes, warm and dry Neurologic: PERRL, EOMI, accommodation nl, no face palsy, no dysarthria Psychiatric: A+Ox3, euthymic affect Lymphatic: no cervical or axillary lymphadenopathy Results & Data ([facility]) Vital Signs (Past 12 Hours) Vital Signs Temp Pulse Resp BP Pulse Ox 03/24/20 14:00 109 H 24 95 03/24/20 13:33 132 H 24 106/53 L 94 03/24/20 13:13 104 H 21 82/59 L 95 03/24/20 12:13 118 H 21 115/69 94 03/24/20 11:13 112 H 21 93/71 L 95 03/24/20 10:35 120 H 20 109/76 95 03/24/20 10:00 111 H 25 H 109/76 94 03/24/20 09:25 133 H 27 H 105/76 94 03/24/20 08:45 35.7 C L 03/24/20 08:13 129 H 34 H 102/74 94 03/24/20 08:00 131 H 24 94 03/24/20 07:14 104 H 18 94 03/24/20 07:13 94 H 19 94/62 L 96 03/24/20 04:12 36.5 C 113 H 22 96/74 L 96 03/24/20 03:13 111 H 21 96/69 L 96 Laboratory Results WBC 10, Hb 13, Hct 40, Platelets 205, Na 139, K 4.0, BUN 31, Cr 1.02, Na 133. Diagnostic Findings Liver US on 03/23/20: 1. Sludge/nonshadowing calculi within the gallbladder. Mild gallbladder wall thickening 2. No evidence of ductal dilatation 3. Right pleural effusion 4. Trace right perihepatic fluid 5. Complex 1 cm right hepatic lobe cyst
[2020-03-24 14:29] LABS: Hepatitis A Antibody IgM NON-REACTIVE (NON-REACTIVE); Hepatitis B Core Antibody IgM NON-REACTIVE (NON-REACTIVE)
[2020-03-24] MEDS: DIGOXIN 0.25 MG TAB PO SCH (16:08)
[2020-03-24] MEDS: WARFARIN SOD 2.5 MG TAB PO SCH (16:08)
[2020-03-24 17:25] LABS: Partial Thromboplastin Ratio 4.8
[2020-03-24 19:12] LABS: Partial Thromboplastin Ratio 2.1
[2020-03-24 19:34] LABS: Partial Thromboplastin Time 57.5 Seconds (21.0-31.0)
[2020-03-25 02:25] LABS: Albumin Level 2.7 gm/dl (3.4-5.0); BUN Creatinine Ratio 32.4 (10-20); Calcium 8.1 mg/dl (8.5-10.1); Creatinine Clr Calc Pharmacy 51.9 ml/min; Est GFR (African American) 73.6; Est GFR (Non-African American) 63.5; Potassium 3.6 mmol/L (3.5-5.1)
[2020-03-25 02:27] LABS: Bilirubin,Total 0.6 mg/dl (0.2-1); Globulin 2.8 gm/dl (2.5-4.0); Total Protein 5.5 gm/dl (6.4-8.2)
[2020-03-25 02:33] LABS: INR 1.8 (0.9-1.1); Partial Thromboplastin Ratio 1.9; Prothrombin Time 18.2 Seconds (9.0-12.0)
[2020-03-25 02:41] LABS: Partial Thromboplastin Time 54.4 Seconds (21.0-31.0)
--- NOTE | 2020-03-25 07:45 | Pulmonology Progress Note ---
Date of Service March 25, 2020 Assessment & Plan (1) Hypoxia: Impression: 69-year-old female with A. fib with RVR and exacerbation of heart failure with associated pulmonary edema. Echocardiogram demonstrates new cardiomyopathy. She is improved with diuresis and rate control. Recommendations: 1. Acute hypoxemic respiratory failure: Patient is improved with diuresis and heart rate control. She no longer requires BiPAP. Continue oxygen titrated to keep saturations at or above 88%. Continue diuresis recommended. Wean oxygen as tolerated. Out of bed as tolerated. 2. Bilateral pleural effusions: Effusions are noted on echocardiogram, chest x- ray, and liver ultrasound. She is not particularly symptomatic at this point time and would not recommend thoracentesis as these are likely transudate of related to her fluid overload and heart failure. Continue to follow clinically with diuresis. We will sign off at this point time. Feel free to contact us with additional pulmonary critical care issues. (2) A-fib: (3) Dyspnea: Admission and Anticipated Discharge Date Admission Date: March 22, 2020 Subjective Patient doing well overnight. No respiratory complaints this morning. She is been weaned down to 2 L nasal cannula. No chest pain. She is tolerating a diet. She remains in A. fib. Heart rate control is better but remains slightly tachycardic Review of Systems Review of Systems: All systems reviewed & are unremarkable except as noted in HPI & below Physical Exam Constitutional: WD/WN, vitals as above Neck: trachea midline, no thyromegaly Respiratory: normal respiratory effort Auscultation: + rales; no wheezes Cardiovascular: Rate/Rhythm: + tachycardic and + irregularly irregular Heart Sounds: normal S1 and normal S2; no murmur Gastrointestinal (Abdomen): normal bowel sounds, soft, nontender, no hepatosplenomegaly Musculoskeletal: Extremities: extremities normal to inspection Skin: no rashes, warm and dry Neurologic: Nonfocal exam Lymphatic: no cervical lymphadenopathy Results & Data Results & Data ([facility]) Vital Signs (Past 12 Hours) Vital Signs Temp Pulse Pulse Resp BP BP Pulse Ox 03/25/20 04:07 36.8 C 107 H 16 95/66 L 96 03/24/20 23:06 36.5 C 118 H 18 104/75 96 03/24/20 22:57 118 H 03/24/20 22:00 107 H 23 94 03/24/20 20:13 132 H 22 114/63 94 Laboratory Results 03/24/20 04:55 03/25/20 01:53 Diagnostic Findings No new films PG Care Time/CCT Total # of Minutes Spent Total Time Spent with Patient: Total time spent is greater than 50% in coordination of care (as documented) at patient's floor/unit and/or counseling patient: Coding Level of Care Code 54063 Subseq Hosp Care Lvl 2 Diagnoses Hypoxia R09.02 A-fib I48.91 Dyspnea R06.00
[2020-03-25] MEDS: DULOXETINE HCL 20 MG CAP PO SCH (08:25)
[2020-03-25] MEDS: GABAPENTIN 600 MG TAB PO SCH ×3 (08:25→21:10)
[2020-03-25] MEDS: METOPROLOL TARTRATE 25 MG TAB PO SCH ×4 (08:25→21:10)
[2020-03-25] MEDS: VALACYCLOVIR HCL 500 MG TABLET PO SCH (08:25)
[2020-03-25] MEDS: FUROSEMIDE 40 MG in SYRINGE 0 ML IV SCH ×2 (08:26→16:12)
[2020-03-25] MEDS: clonazePAM 0.5 MG TAB PO SCH ×2 (08:26→21:09)
--- NOTE | 2020-03-25 10:18 | Cardiology Progress Note ---
Date of Service March 25, 2020 Assessment & Plan (1) Acute HFrEF (heart failure with reduced ejection fraction): Acute (newly diagnosed) HFrEF with severe LV systolic dysfunction , moderate MR, AF with RVR. Suspect tachycardia induced CM. LFTs remain elevated , likely due to CHF, passive liver congestion. Ventricular rate remain high, however, fluid balance improved, net negative 2.5 L yesterday. Increase metoprolol tartrate to 25 mg PO QID. Favor tartrate for ease of titration as pt has low BP, will ultimately transition back to succinate. Continue oral digoxin. Will consider amiodarone rather than digoxin once LFTs improve to an acceptable level. Pt is not on an ACEI , ARB or Entresto due to hypotension. Add low dose spironolactone given K of 3.6. Stroke prophylaxis: INR was above goal earlier this stay , prompting vitamin K administration. Now on heparin bridge, back on low dose coumadin , INR 1.8 today. I think pt is best served by remaining in room 105 for now. Subjective CC: follow up shortness of breath Subjective: Patient continues to improve subjectively. AF, RVR still noted on telemetry. Review of Systems Review of Systems: All systems reviewed & are unremarkable except as noted in HPI & below Physical Exam Physical Exam: Temp Pulse Resp BP Pulse Ox 35.7 C L 108 H 21 121/63 88 L 03/25/20 08:00 03/25/20 09:41 03/25/20 09:41 03/25/20 08:30 03/25/20 09:41 Constitutional: WD/WN, vitals as above Respiratory: normal respiratory effort, lungs clear to auscultation Cardiovascular: Rate/Rhythm: + tachycardic and + irregularly irregular Heart Sounds: + murmur (I/ SM) Vessels: no JVD Extremities: no edema Gastrointestinal (Abdomen): normal bowel sounds, soft, nontender, no hepatosplenomegaly Neurologic: PERRL, EOMI, accommodation nl, no face palsy, no dysarthria Results & Data Vital Signs (Past 12 Hours) Vital Signs Temp Pulse Pulse Resp BP BP Pulse Ox 03/25/20 09:41 108 H 21 88 L 03/25/20 08:30 121 H 26 H 121/63 95 03/25/20 08:00 35.7 C L 123 H 14 94 03/25/20 04:07 36.8 C 107 H 16 95/66 L 96 03/24/20 23:06 36.5 C 118 H 18 104/75 96 03/24/20 22:57 118 H Laboratory Results INR 1.8 PTT 54.5 s K=3.6 Creatinine 0.92.
[2020-03-25] MEDS: SPIRONOLACTONE 12.5 MG TAB PO SCH (11:14)
--- NOTE | 2020-03-25 12:21 | Gastroenterology Progress Note ---
Date of Service March 25, 2020 Assessment & Plan (1) Transaminitis: Ms. Carroll's transaminitis is unlikely to be related to her gallstones, more likely caused by congestive hepatopathy and recent brief decrease in blood supply to the liver. Transaminases are improving. (2) Irritable bowel syndrome with diarrhea: Diarrhea most likely secondary to IBS-D. C-diff is negative, preliminary stool culture is negative. Recommend Imodium as needed. Will ask the GI office schedulers to reach out to this patient to make an appointment for outpatient work-up of diarrhea. Of note she is also overdue for surveillance colonoscopy for history of polyps (though this is not an urgent indication for endoscopy would wait until she is stabilized from a cardiac standpoint). Admission and Anticipated Discharge Date Admission Date: March 22, 2020 Supervising Physician Co-Signing Physician Notes I have personally seen and examined the patient with BETH Cee. Her note reflects my exam and findings. I agree with her impression and plan. Agree with waiting for liver enzyme improvement before starting amiodarone. Nico Butt Subjective Ms. Kristen Carroll is a 69-year-old female who was admitted and A. fib with RVR and acute CHF. GI consulted for elevated transaminases which are now improved. Although ultrasound shows gallstones and mild gallbladder wall thickening, patient denies any biliary colic type abdominal pain. Review of Systems Constitutional: +weakness, no weight loss, no denies fevers Respiratory: had a significant cough last week, improved now Gastrointestinal: chronic diarrhea, was worsened over the week, improved since admission Endocrine: + fatigue Allergy / Immunological: + cough (last week, now improved); no tongue swelling and no urticaria Physical Exam Constitutional: WD/WN, vitals as above + thin Eyes: PERRL, conjunctivae normal, anicteric sclerae ENMT: external ear and nose normal, oropharynx normal Neck: trachea midline, no thyromegaly Respiratory: normal respiratory effort, lungs clear to auscultation Cardiovascular: RRR, no murmur, no edema Gastrointestinal (Abdomen): normal bowel sounds, soft, nontender, no hepatosplenomegaly Musculoskeletal: no cyanosis or clubbing, extremities motor strength 5/5 Skin: no rashes, warm and dry Neurologic: PERRL, EOMI, accommodation nl, no face palsy, no dysarthria Psychiatric: A+Ox3, euthymic affect Lymphatic: no cervical or axillary lymphadenopathy Results & Data ([facility]) Vital Signs (Past 12 Hours) Vital Signs Temp Pulse Pulse Resp BP BP Pulse Ox 03/25/20 10:55 122 H 29 H 113/71 91 03/25/20 09:41 108 H 21 88 L 03/25/20 08:31 108 H 30 H 96 03/25/20 08:30 121 H 26 H 121/63 95 03/25/20 08:00 35.7 C L 123 H 14 94 03/25/20 04:07 36.8 C 107 H 16 95/66 L 96 Laboratory Results AST 146, 198, 149, today decreased to 104. ALT 110, 152, 139, today decreased to 123. Total bilirubin and alkaline phosphatase are normal. Diagnostic Findings Liver US on 03/23/20: 1. Sludge/nonshadowing calculi within the gallbladder. Mild gallbladder wall th ickening 2. No evidence of ductal dilatation 3. Right pleural effusion 4. Trace right perihepatic fluid 5. Complex 1 cm right hepatic lobe cyst
[2020-03-25] MEDS: Heparin Adult STANDARD Wt-Based Dextrose 5% 25,000 units/500 mL IV SCH ×2 (13:00→17:56)
[2020-03-25] MEDS: WARFARIN SOD 2.5 MG TAB PO SCH (16:09)
[2020-03-25] MEDS: DIGOXIN 0.25 MG TAB PO SCH (16:11)
--- NOTE | 2020-03-25 16:43 | Hospitalist Progress Note ---
Date of Service March 25, 2020 Assessment & Plan (1) Acute hypoxemic respiratory failure: sepsis was ruled out, antibiotics were stopped. Hypoxia continues to improve with diuresis and rate control medications. (2) Acute HFrEF (heart failure with reduced ejection fraction): Cont diuresis with Lasix. Metoprolol increased by Cardiology. Digoxin continued. (3) Atrial fibrillation with RVR: Rate control with metoprolol and digoxin. Cardio prefers amio however this is limited in setting of elevated transaminases. INR was supratherapeutic and is now 1.8. She was restarted on warfarin 2.5 daily and heparin bridge. Trend INR. (4) Hypoxia: 2/2 acute heart failure. Cont treatment listed above. Further medication titration per Cardiology. (5) Transaminitis: Likely resulting from passive congestion of liver in fluid overload. Abdominal exam is benign. US liver also reveals evidence of sludge/stones and a complex cyst. GI saw patient today and agrees with this assessment. (6) Diarrhea: IBS-D, symptom management PRN with Imodium. Outpatient colonoscopy to be done with GI in next few months. (7) Smoking: Strongly advised to quit, which she had done for 20 years prior to restarting recently. (8) Supratherapeutic INR: resolved. restart AC as above. (9) DVT prophylaxis: heparin/warfarin Full Code Dispo-cont PCU status. Evie Kay DO [facility] Hospitalist Admission and Anticipated Discharge Date Admission Date: March 22, 2020 Subjective metoprolol increased to help control rate and still getting digoxin GI consulted re: biliary stone and no further inpatient GI workup needed. LFTs considered 2/2 volume changes from heart failure Denies any pain Reports an improvement in breathing Tolerating PO Feels fatigued in general Review of Systems Review of Systems: All systems reviewed & are unremarkable except as noted in Subjective Physical Exam Physical Exam: CONSTITUTIONAL: WNWD, vitals as above, generally well- appearing EYES: normal conjunctivae, no scleral icterus ENT: external ear and nose normal, MMM NECK: trachea midline, +JVD RESPIRATORY: clear lungs to auscultation throughout. No rales or wheezes, normal respiratory effort, conversational dyspnea has improved. CARDIOVASCULAR: tachy rate and irregular rhythm, S1 and 2 heard without murmurs, gallops or rubs, no peripheral edema CHEST: inspection of chest was normal GASTROINTESTINAL: soft, nontender, nondistended MUSCULOSKELETAL: strength 5/5 throughout, head is normocephalic and atraumatic SKIN: warm and dry NEUROLOGIC: CN 2-12 grossly intact, normal cognition, normal speech, no tremor, no gross focal deficits. PSYCHIATRIC: alert cooperative and oriented to person, place and time. Results & Data Results & Data ([facility]) Vital Signs (Past 12 Hours) Vital Signs Temp Pulse Pulse Resp BP Pulse Ox 03/25/20 16:11 124 H 03/25/20 14:08 132 H 23 96/73 L 89 L 03/25/20 14:00 120 H 24 90 03/25/20 12:08 126 H 25 H 123/65 91 03/25/20 10:56 114 H 17 90 03/25/20 10:55 122 H 29 H 113/71 91 03/25/20 09:41 108 H 21 88 L 03/25/20 08:31 108 H 30 H 96 03/25/20 08:30 121 H 26 H 121/63 95 03/25/20 08:00 35.7 C L 123 H 14 94 Laboratory Results [facility] 03/25/20 01:53 Sodium 140 Potassium 3.6 Chloride 104 Carbon Dioxide 30 BUN 30 H Creatinine 0.92 Glucose 130 H Calcium 8.1 L Liver Function 03/25/20 Range/Units 01:53 Total Bilirubin 0.6 (0.2-1) mg/dl AST 104 H (15-37) U/L ALT 123 H (12-78) U/L Alkaline Phosphatase 62 (45-117) U/L Albumin 2.7 L (3.4-5.0) gm/dl Medications Administered Current Inpatient Medications Clonazepam (Klonopin) 0.5 mg PO BID [facility] Stop: 04/21/20 20:59 Last Admin: 03/25/20 08:26 Dose: 0.5 mg Documented by: Digoxin (Lanoxin) 0.25 mg PO DAILY@1600 [facility] Stop: 04/23/20 15:59 Last Admin: 03/25/20 16:11 Dose: 0.25 mg Documented by: Duloxetine HCl (Cymbalta) 20 mg PO DAILY [facility] Stop: 04/22/20 08:59 Last Admin: 03/25/20 08:25 Dose: 20 mg Documented by: Gabapentin (Neurontin) 600 mg PO TID [facility] Stop: 04/21/20 20:59 Last Admin: 03/25/20 16:11 Dose: Not Given Documented by: Furosemide 40 mg/ Syringe 4 mls @ 4 mls/min IV BID17 [facility] Stop: 04/22/20 08:59 Last Admin: 03/25/20 16:12 Dose: 4 mls/min Documented by: Heparin Sodium/Dextrose (Heparin Sodium/Dextrose) 25,000 units in 500 mls @ 17 mls/hr IV .Q24H [facility]; Protocol Stop: 04/23/20 10:44 Last Admin: 03/25/20 13:00 Dose: Not Given Documented by: Levalbuterol HCl (Xopenex Hfa) 2 puffs INH QID PRN; Protocol PRN Reason: Wheezing Stop: 04/21/20 19:39 Lorazepam (Ativan) 0.5 mg PO Q8H PRN PRN Reason: Anxiety Stop: 04/21/20 21:53 Metoprolol Tartrate (Lopressor) 5 mg IV Q4 PRN PRN Reason: HR > 110 Stop: 04/21/20 19:39 Last Admin: 03/23/20 08:14 Dose: 2.5 mg Documented by: Metoprolol Tartrate (Lopressor) 25 mg PO QID [facility] Stop: 04/24/20 12:59 Last Admin: 03/25/20 16:12 Dose: 25 mg Documented by: Spironolactone (Aldactone) 12.5 mg PO DAILY [facility] Stop: 04/24/20 10:14 Last Admin: 03/25/20 11:14 Dose: 12.5 mg Documented by: Valacyclovir HCl (Valtrex) 500 mg PO DAILY [facility] Stop: 04/02/20 08:59 Last Admin: 03/25/20 08:25 Dose: 500 mg Documented by: Warfarin Sodium (Coumadin) 2.5 mg PO DAILY@1600 [facility] Stop: 04/23/20 15:59 Last Admin: 03/25/20 16:09 Dose: 2.5 mg Documented by:
[2020-03-26 05:04] LABS: Basophils # (auto) 0.01 K/uL (0-0.2); Basophils % (auto) 0.1 %; Eosinophils % (auto) 1.5 %; Hematocrit (blood only) 45.4 % (37-47); Hemoglobin 14.9 g/dL (12.0-16.0); Immature Granulocytes # (auto) 0.02 K/uL (0.00-0.02); Immature Granulocytes % (auto) 0.3 %; Lymphocytes # (auto) 2.07 K/uL (1.2-3.4); Lymphocytes % (auto) 30.8 %; Mean Corpuscular Hemoglobin 32.3 pg (25-34); Mean Corpuscular Hgb Conc 32.8 g/dL (32-36); Mean Corpuscular Volume 98.3 fL (80-100); Mean Platelet Volume 11.1 fL (7.4-10.4); Monocytes # (auto) 0.84 K/uL (0.11-0.59); Monocytes % (auto) 12.5 %; Neutrophils # (auto) 3.69 K/uL (1.4-6.5); Neutrophils % (auto) 54.8 %; Platelet Count 223 K/uL (130-400); RDW Coefficient of Variation 14.3 % (11.5-14.5); RDW Standard Deviation 49.9 fL (36.4-46.3); Red Blood Count 4.62 M/uL (4.2-5.4); White Blood Count 6.73 K/uL (4.8-10.8)
[2020-03-26 05:24] LABS: Albumin Globulin Ratio 0.9 (0.9-2); Albumin Level 2.6 gm/dl (3.4-5.0); BUN Creatinine Ratio 28.7 (10-20); Bilirubin,Total 0.8 mg/dl (0.2-1); Calcium 8.1 mg/dl (8.5-10.1); Creatinine Clr Calc Pharmacy 73.5 ml/min; Est GFR (Non-African American) 90.6; Globulin 2.9 gm/dl (2.5-4.0); Potassium 3.3 mmol/L (3.5-5.1); Total Protein 5.5 gm/dl (6.4-8.2)
[2020-03-26 05:25] LABS: INR 1.8 (0.9-1.1); Partial Thromboplastin Ratio 2.2; Prothrombin Time 18.8 Seconds (9.0-12.0)
[2020-03-26 05:27] LABS: Partial Thromboplastin Time 60.4 Seconds (21.0-31.0)
[2020-03-26] MEDS ORDERED: POTASSIUM CHLORIDE 20 MEQ TABCR PO STA (05:59)
[2020-03-26 06:19] LABS: Magnesium 1.4 mg/dl (1.8-2.4)
[2020-03-26] MEDS: SPIRONOLACTONE 12.5 MG TAB PO SCH (08:23)
[2020-03-26] MEDS: POTASSIUM CHLORIDE 20 MEQ TABCR PO SCH ×2 (08:23→20:10)
[2020-03-26] MEDS: METOPROLOL TARTRATE 25 MG TAB PO SCH ×4 (08:23→20:10)
[2020-03-26] MEDS: DULOXETINE HCL 20 MG CAP PO SCH (08:23)
[2020-03-26] MEDS: GABAPENTIN 600 MG TAB PO SCH ×3 (08:24→20:10)
[2020-03-26] MEDS: VALACYCLOVIR HCL 500 MG TABLET PO SCH (08:24)
[2020-03-26] MEDS: clonazePAM 0.5 MG TAB PO SCH ×2 (08:25→20:10)
[2020-03-26] MEDS: FUROSEMIDE 40 MG in SYRINGE 0 ML IV SCH ×2 (08:26→17:41)
[2020-03-26] MEDS: MAGNESIUM SULFATE / D5W 1 GM/100 ML BAG IV SCH ×2 (11:13→12:37)
--- NOTE | 2020-03-26 12:07 | Hospitalist Progress Note ---
Date of Service March 26, 2020 Assessment & Plan (1) Acute hypoxemic respiratory failure: sepsis was ruled out, antibiotics were stopped. Hypoxia is now resolved. (2) Acute HFrEF (heart failure with reduced ejection fraction): Cont diuresis with Lasix. Cont metoprolol. Hold dig, amio added in effort to convert to sinus rhythm. (3) Atrial fibrillation with RVR: INR 1.8, continues on warfarin with heparin bridge. Amio started as above. Continues on metoprolol (4) Transaminitis: Likely resulting from passive congestion of liver in fluid overload. Abdominal exam is benign. US liver also reveals evidence of sludge/stones and a complex cyst. GI saw patient and agrees with this assessment. Resolving nicely on labwork this morning. (5) Diarrhea: IBS-D, symptom management PRN with Imodium. Outpatient colonoscopy to be done with GI in next few months. (6) Smoking: Strongly advised to quit, which she had done for 20 years prior to restarting recently. (7) Supratherapeutic INR: resolved. restart AC as above. (8) DVT prophylaxis: heparin/warfarin Full Code Dispo-cont PCU status. [facility] and Anticipated Discharge Date Admission Date: March 22, 2020 Subjective denies pain urinating with good output (2L) out overnight amio started today. tolerating PO and doing well overall Review of Systems Review of Systems: All systems reviewed & are unremarkable except as noted in Subjective Physical Exam Physical Exam: CONSTITUTIONAL: WNWD, vitals as above, generally well- appearing EYES: normal conjunctivae, no scleral icterus ENT: external ear and nose normal, MMM NECK: trachea midline, RESPIRATORY: clear lungs to auscultation throughout. No rales or wheezes, normal respiratory effort, no conversational dyspnea. CARDIOVASCULAR: tachy rate and irregular rhythm, S1 and 2 heard without murmurs, gallops or rubs, no peripheral edema CHEST: inspection of chest was normal GASTROINTESTINAL: soft, nontender, nondistended MUSCULOSKELETAL: strength 5/5 throughout, head is normocephalic and atraumatic SKIN: warm and dry NEUROLOGIC: CN 2-12 grossly intact, normal cognition, normal speech, no tremor, no gross focal deficits. PSYCHIATRIC: alert cooperative and oriented to person, place and time. Results & Data Results & Data ([facility]) Vital Signs (Past 12 Hours) Vital Signs Temp Pulse Pulse Resp BP BP Pulse Ox 03/26/20 08:00 36.6 C 98 H 16 111/61 93 03/26/20 04:32 36.9 C 102 H 15 89/72 L 91 03/26/20 03:01 100 H 16 91 03/26/20 00:14 98 H Laboratory Results Short CBC 03/26/20 Range/Units 04:30 WBC 6.73 (4.8-10.8) K/uL Hgb 14.9 (12.0-16.0) g/dL Hct 45.4 (37-47) % Plt Count 223 (130-400) K/uL BMP 03/26/20 04:30 Sodium 141 Potassium 3.3 L Chloride 101 Carbon Dioxide 36 H BUN 18 Creatinine 0.65 Glucose 99 Calcium 8.1 L Liver Function 03/26/20 Range/Units 04:30 Total Bilirubin 0.8 (0.2-1) mg/dl AST 54 H (15-37) U/L ALT 88 H (12-78) U/L Alkaline Phosphatase 57 (45-117) U/L Albumin 2.6 L (3.4-5.0) gm/dl Medications Administered Current Inpatient Medications Clonazepam (Klonopin) 0.5 mg PO BID [facility] Stop: 04/21/20 20:59 Last Admin: 03/26/20 08:25 Dose: 0.5 mg Documented by: Digoxin (Lanoxin) 0.25 mg PO DAILY@1600 [facility] Stop: 04/23/20 15:59 Last Admin: 03/25/20 16:11 Dose: 0.25 mg Documented by: Duloxetine HCl (Cymbalta) 20 mg PO DAILY [facility] Stop: 04/22/20 08:59 Last Admin: 03/26/20 08:23 Dose: 20 mg Documented by: Gabapentin (Neurontin) 600 mg PO TID [facility] Stop: 04/21/20 20:59 Last Admin: 03/26/20 08:24 Dose: 600 mg Documented by: Furosemide 40 mg/ Syringe 4 mls @ 4 mls/min IV BID17 [facility] Stop: 04/22/20 08:59 Last Admin: 03/26/20 08:26 Dose: 4 mls/min Documented by: Heparin Sodium/Dextrose (Heparin Sodium/Dextrose) 25,000 units in 500 mls @ 17 mls/hr IV .Q24H [facility]; Protocol Stop: 04/23/20 10:44 Last Titration: 03/26/20 07:17 Dose: 850 units/hr, 17 mls/hr Documented by: Magnesium Sulfate/Dextrose (Magnesium Sulfate / D5w) 1 gm in 100 mls @ 50 mls/hr IV Q2H [facility] Stop: 03/26/20 14:27 Last Admin: 03/26/20 11:13 Dose: 50 mls/hr Documented by: Levalbuterol HCl (Xopenex Hfa) 2 puffs INH QID PRN; Protocol PRN Reason: Wheezing Stop: 04/21/20 19:39 Lorazepam (Ativan) 0.5 mg PO Q8H PRN PRN Reason: Anxiety Stop: 04/21/20 21:53 Metoprolol Tartrate (Lopressor) 5 mg IV Q4 PRN PRN Reason: HR > 110 Stop: 04/21/20 19:39 Last Admin: 03/23/20 08:14 Dose: 2.5 mg Documented by: Metoprolol Tartrate (Lopressor) 25 mg PO QID [facility] Stop: 04/24/20 12:59 Last Admin: 03/26/20 08:23 Dose: 25 mg Documented by: Potassium Chloride (Klor-Con M20) 20 meq PO BID [facility] Stop: 04/25/20 08:59 Last Admin: 03/26/20 08:23 Dose: 20 meq Documented by: Spironolactone (Aldactone) 12.5 mg PO DAILY [facility] Stop: 04/24/20 10:14 Last Admin: 03/26/20 08:23 Dose: 12.5 mg Documented by: Valacyclovir HCl (Valtrex) 500 mg PO DAILY [facility] Stop: 04/02/20 08:59 Last Admin: 03/26/20 08:24 Dose: 500 mg Documented by: Warfarin Sodium (Coumadin) 5 mg PO DAILY@1600 [facility] Stop: 04/25/20 15:59
--- NOTE | 2020-03-26 12:20 | Cardiology Progress Note ---
Date of Service March 26, 2020 Assessment & Plan (1) Acute HFrEF (heart failure with reduced ejection fraction): Continue current furosemide 40 mg IV twice daily. Electrolytes including low magnesium and low potassium being replaced by the primary team. Low-dose spironolactone. Patient is not a candidate for ISI inhibitor or angiotensin receptor dayan due to relative low blood pressure at present. 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 (2) A-fib: Rate control, continue Toprol tartrate 25 mg 4 times daily. AST improved to 54, ALT improved to 88 units/L. This was likely due to passive liver congestion. At this time, I recommend proceeding with starting amiodarone for additional rate control given low blood pressure, dissipated cardioversion at some point. We will continue to watch her LFTs. Stroke prophylaxis: Continue heparin bridge, initiation, INR 1.8 today. (3) Transaminitis: Likely due to passive liver congestion. To follow. Cautiously add amiodarone. Subjective Patient seen in cardiology follow-up of shortness of breath and tachycardia. She is sitting comfortably. While sleeping, ventricular rates are in the 80s, but with minimal activity such as even talking, ventricular rates as high as 120 to 130 bpm. Respiratory status continues to improve. Physical Exam Physical Exam: Temp Pulse Resp BP Pulse Ox 36.6 C 98 H 16 111/61 93 03/26/20 08:00 03/26/20 08:00 03/26/20 08:00 03/26/20 08:00 03/26/20 08:00 Constitutional: WD/WN, vitals as above Respiratory: Mildly decreased breath sounds in the bases Cardiovascular: Rate/Rhythm: + tachycardic and + irregularly irregular Heart Sounds: + murmur (1/6 systolic murmur) Gastrointestinal (Abdomen): normal bowel sounds, soft, nontender, no hepatosplenomegaly Neurologic: PERRL, EOMI, accommodation nl, no face palsy, no dysarthria Results & Data Vital Signs (Past 12 Hours) Vital Signs Temp Pulse Pulse Resp BP BP Pulse Ox 03/26/20 08:00 36.6 C 98 H 16 111/61 93 03/26/20 04:32 36.9 C 102 H 15 89/72 L 91 03/26/20 03:01 100 H 16 91 Laboratory Results Cardiac Enzymes 03/26/20 Range/Units 04:30 AST 54 H (15-37) U/L Coagulation 03/26/20 Range/Units 04:30 PT 18.8 H (9.0-12.0) Seconds APTT 60.4 H* (21.0-31.0) Seconds CBC 03/26/20 Range/Units 04:30 WBC 6.73 (4.8-10.8) K/uL RBC 4.62 (4.2-5.4) M/uL Hgb 14.9 (12.0-16.0) g/dL Hct 45.4 (37-47) % Plt Count 223 (130-400) K/uL Neut # (Auto) 3.69 (1.4-6.5) K/uL Lymph # (Auto) 2.07 (1.2-3.4) K/uL [place] # (Auto) 0.84 H (0.11-0.59) K/uL Eos # (Auto) 0.10 (0-0.5) K/uL Baso # (Auto) 0.01 (0-0.2) K/uL Comprehensive Metabolic Panel 03/26/20 Range/Units 04:30 Sodium 141 (136-145) mmol/L Potassium 3.3 L (3.5-5.1) mmol/L Chloride 101 (98-107) mmol/L Carbon Dioxide 36 H (21-32) mmol/L BUN 18 (7-18) mg/dl Creatinine 0.65 (0.6-1.2) mg/dl Glucose 99 (70-99) mg/dl Calcium 8.1 L (8.5-10.1) mg/dl AST 54 H (15-37) U/L ALT 88 H (12-78) U/L Alkaline Phosphatase 57 (45-117) U/L Total Protein 5.5 L (6.4-8.2) gm/dl Albumin 2.6 L (3.4-5.0) gm/dl Intake and Output 03/25/20 03/26/20 03/26/20 22:59 06:59 14:59 Intake Total 598.116 / 673.116 0 / 673.116 208.817 / 208.817 Output Total 1400 / 3825 500 / 3825 Balance -801.884 / -3151.884 -500 / -3151.884 208.817 / 208.817 Intake: IV 258.116 / 258.116 208.817 / 208.817 HEPARIN SODIUM/DEXTROSE 25,000 258.116 / 258.116 208.817 / 208.817 units In 500 ml @ 850 UNITS/HR 17 mls/hr IV .Q24H [facility] Rx#: [id number] Oral 340 / 415 0 / 415 Output: Urine 1400 / 3825 500 / 3825 Other: Weight 60.4 kg
[2020-03-26] MEDS ORDERED: AMIODARONE 200 MG TAB PO ONE (12:45)
[2020-03-26] MEDS ORDERED: WARFARIN SOD 5 MG TAB PO SCH (16:00)
[2020-03-26] MEDS ORDERED: WARFARIN SOD 2.5 MG TAB PO SCH (16:00)
[2020-03-26] MEDS: AMIODARONE 200 MG TAB PO SCH (17:36)
[2020-03-27] MEDS: Heparin Adult STANDARD Wt-Based Dextrose 5% 25,000 units/500 mL IV SCH ×4 (01:20→11:19)
[2020-03-27 07:14] LABS: Hematocrit (blood only) 51.4 % (37-47); Hemoglobin 17.3 g/dL (12.0-16.0); Mean Corpuscular Hgb Conc 33.7 g/dL (32-36); Mean Corpuscular Volume 98.1 fL (80-100); Platelet Count 240 K/uL (130-400); RDW Coefficient of Variation 14.2 % (11.5-14.5); RDW Standard Deviation 50.4 fL (36.4-46.3); Red Blood Count 5.24 M/uL (4.2-5.4); White Blood Count 7.86 K/uL (4.8-10.8)
[2020-03-27 07:28] LABS: INR 1.6 (0.9-1.1)
[2020-03-27 07:39] LABS: Partial Thromboplastin Ratio 2.7
--- NOTE | 2020-03-27 07:39 | Communication Note ---
Date of Service: March 27, 2020 INR have been below goal today, increase Coumadin to closely given treatment with amiodarone.
[2020-03-27 07:43] LABS: Partial Thromboplastin Time 74.3 Seconds (21.0-31.0)
[2020-03-27] MEDS: AMIODARONE 200 MG TAB PO SCH ×2 (07:49→16:10)
[2020-03-27] MEDS: FUROSEMIDE 40 MG in SYRINGE 0 ML IV SCH ×2 (07:50→17:27)
[2020-03-27] MEDS: POTASSIUM CHLORIDE 20 MEQ TABCR PO SCH ×2 (07:50→08:02)
[2020-03-27] MEDS: METOPROLOL TARTRATE 25 MG TAB PO SCH ×4 (07:50→20:46)
[2020-03-27] MEDS: SPIRONOLACTONE 12.5 MG TAB PO SCH (07:50)
[2020-03-27] MEDS: GABAPENTIN 600 MG TAB PO SCH ×3 (07:51→20:48)
[2020-03-27] MEDS: VALACYCLOVIR HCL 500 MG TABLET PO SCH (07:51)
[2020-03-27] MEDS: clonazePAM 0.5 MG TAB PO SCH ×2 (07:54→20:48)
[2020-03-27 07:59] LABS: Albumin Globulin Ratio 0.8 (0.9-2); Albumin Level 3.3 gm/dl (3.4-5.0); BUN Creatinine Ratio 19.3 (10-20); Bilirubin,Total 0.9 mg/dl (0.2-1); Calcium 9.3 mg/dl (8.5-10.1); Creatinine Clr Calc Pharmacy 49.1 ml/min; Est GFR (African American) 72.7; Est GFR (Non-African American) 62.7; Potassium 4.6 mmol/L (3.5-5.1); Total Protein 7.3 gm/dl (6.4-8.2)
[2020-03-27] MEDS: DULOXETINE HCL 20 MG CAP PO SCH (08:55)
--- NOTE | 2020-03-27 09:43 | XRay Report ---
XR chest 2V PA/lateral CLINICAL HISTORY: follow up,CHF COMPARISON STUDY: 03/23/2020 FINDINGS: The heart is enlarged. There is been resolution of previously identified pulmonary edema. T here are decreasing bilateral pleural effusions. There is no lobar consolidation. There is suspected underlying pulmonary emphysema.[Right basilar opacity is likely atelectatic. IMPRESSION: 1. Interval resolution of the previous identified pulmonary edema 2. Decreasing bilateral pleural effusions right larger than left 3. No evidence of lobar consolidation ACT 112: Negative or not required by law. Electronically signed by: Edilson John M.D. 03/27/2020 9:41 AM
--- NOTE | 2020-03-27 10:54 | Cardiology Progress Note ---
Date of Service March 27, 2020 Assessment & Plan (1) Acute HFrEF (heart failure with reduced ejection fraction): Newly diagnosed severe LV systolic dysfunction. 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 Tolerating diuretics well. Potassium was low yesterday, improved to 4.6 with oral replacement as well as spironolactone. Chest x-ray performed today and compared to 03/23/2020. Previously noted pulmonary edema has resolved, trace to small bilateral pleural effusions noted, to 03/23/2020. (2) A-fib: Rate control with metoprolol and amiodarone. It is noted that at baseline, patient has sinus bradycardia limiting the dose of AV citlali blockers, and therefore she was only on a very low dose of metoprolol succinate previously. Stroke prophylaxis: Continue heparin bridge. Patient received vitamin K earlier this hospital stay for a very high INR. Coumadin load in process, goal INR 2-3. Patient will likely undergo transesophageal echocardiogram guided cardioversion during his hospital stay, but I think to optimize her from a CHF standpoint first. (3) Transaminitis: Likely due to passive liver congestion. AST ALT still abnormal, improvement. Amiodarone added with caution yesterday 03/26/20. (4) Mitral regurgitation: At least moderate, possibly severe mitral regurgitation, eccentric posteriorly directed jet. Mitral Valve structure and function will also be assessed with ARNAUD. Subjective Patient without complaints today. Remains in atrial fibrillation with rates are marginally improved rates in the range of 80 to 110 bpm at rest. Most recent systolic blood pressure was 103 mmHg. Review of Systems Review of Systems: All systems reviewed & are unremarkable except as noted in HPI & below Physical Exam Physical Exam: Temp Pulse Resp BP Pulse Ox 36.6 C 82 18 103/70 95 03/27/20 07:14 03/27/20 07:14 03/27/20 07:14 03/27/20 07:14 03/27/20 07:14 Constitutional: Frail, [place] ill in appearance, no acute distress Respiratory: Auscultation: no crackles and no rales Mildly decreased breath sounds in the bases Cardiovascular: Rate/Rhythm: + tachycardic and + irregularly irregular Heart Sounds: + murmur (1/sick systolic murmur) Vessels: no JVD Extremities: no edema Gastrointestinal (Abdomen): normal bowel sounds, soft, nontender, no hepatospl enomegaly Neurologic: PERRL, EOMI, accommodation nl, no face palsy, no dysarthria Results & Data Vital Signs (Past 12 Hours) Vital Signs Temp Pulse Resp BP BP Pulse Ox 03/27/20 07:14 36.6 C 82 18 103/70 95 03/27/20 03:09 36.9 C 81 17 95/73 L 91 03/26/20 23:01 36.7 C 82 18 94/67 L 94 Laboratory Results Cardiac Enzymes 03/27/20 Range/Units 07:01 AST 43 H (15-37) U/L Coagulation 03/27/20 03/27/20 Range/Units 07:01 07:01 PT 16.0 H (9.0-12.0) Seconds APTT 74.3 H* (21.0-31.0) Seconds CBC 03/27/20 Range/Units 07:01 WBC 7.86 (4.8-10.8) K/uL RBC 5.24 (4.2-5.4) M/uL Hgb 17.3 H (12.0-16.0) g/dL Hct 51.4 H (37-47) % Plt Count 240 (130-400) K/uL Comprehensive Metabolic Panel 03/27/20 Range/Units 07:01 Sodium 138 (136-145) mmol/L Potassium 4.6 D (3.5-5.1) mmol/L Chloride 98 (98-107) mmol/L Carbon Dioxide 35 H (21-32) mmol/L BUN 18 (7-18) mg/dl Creatinine 0.93 (0.6-1.2) mg/dl Glucose 122 H (70-99) mg/dl Calcium 9.3 (8.5-10.1) mg/dl AST 43 H (15-37) U/L ALT 87 H (12-78) U/L Alkaline Phosphatase 76 (45-117) U/L Total Protein 7.3 D (6.4-8.2) gm/dl Albumin 3.3 L (3.4-5.0) gm/dl Intake and Output 03/26/20 03/27/20 03/27/20 22:59 06:59 14:59 Intake Total 597.483 / 1777.917 251.617 / 1777.917 57.8 / 57.8 Balance 597.483 / 577.917 251.617 / 577.917 57.8 / 57.8 Intake: IV 197.483 / 747.917 171.617 / 747.917 57.8 / 57.8 HEPARIN SODIUM/DEXTROSE 25,000 197.483 / 577.917 171.617 / 577.917 57.8 / 57.8 units In 500 ml @ 850 UNITS/HR 17 mls/hr IV .Q24H [facility] Rx#: [id number] Oral 400 / 1030 80 / 1030 Other: # Unmeasured Voids 2 2 Weight 54.5 kg
[2020-03-27 14:14] LABS: Partial Thromboplastin Ratio 2.3
[2020-03-27 14:18] LABS: Partial Thromboplastin Time 65.5 Seconds (21.0-31.0)
--- NOTE | 2020-03-27 14:47 | Hospitalist Progress Note ---
Date of Service March 27, 2020 Assessment & Plan (1) Acute hypoxemic respiratory failure: sepsis was ruled out, antibiotics were stopped. Hypoxia is now resolved. (2) Acute HFrEF (heart failure with reduced ejection fraction): Cont diuresis with Lasix. Cont metoprolol. Hold dig, amio added in effort to convert to sinus rhythm. (3) Atrial fibrillation with RVR: INR 1.8, continues on warfarin with heparin bridge. Amio started as above. Continues on metoprolol (4) Transaminitis: Likely resulting from passive congestion of liver in fluid overload. Abdominal exam is benign. US liver also reveals evidence of sludge/stones and a complex cyst. GI saw patient and agrees with this assessment. Resolving nicely on labwork this morning. (5) Diarrhea: IBS-D, symptom management PRN with Imodium. Outpatient colonoscopy to be done with GI in next few months. (6) Smoking: Strongly advised to quit, which she had done for 20 years prior to restarting recently. (7) Supratherapeutic INR: resolved. restart AC as above. (8) DVT prophylaxis: heparin/warfarin Full Code Dispo-cont PCU status. [facility]tic[facility]ated Discharge Date Admission Date: March 22, 2020 Subjective stable today ambulating around the room non SOB , denies pain Review of Systems Review of Systems: All systems reviewed & are unremarkable except as noted in Subjective Physical Exam Physical Exam: CONSTITUTIONAL: WNWD, vitals as above, generally well- appearing EYES: normal conjunctivae, no scleral icterus ENT: external ear and nose normal, MMM NECK: trachea midline, RESPIRATORY: clear lungs to auscultation throughout. No rales or wheezes, normal respiratory effort, no conversational dyspnea. CARDIOVASCULAR: tachy rate and irregular rhythm, S1 and 2 heard without murmurs, gallops or rubs, no peripheral edema CHEST: inspection of chest was normal GASTROINTESTINAL: soft, nontender, nondistended MUSCULOSKELETAL: strength 5/5 throughout, head is normocephalic and atraumatic SKIN: warm and dry NEUROLOGIC: CN 2-12 grossly intact, normal cognition, normal speech, no tremor, no gross focal deficits. PSYCHIATRIC: alert cooperative and oriented to person, place and time. Results & Data Results & Data ([facility]) Vital Signs (Past 12 Hours) Vital Signs Temp Pulse Resp BP BP Pulse Ox 03/27/20 11:01 36.4 C L 87 19 101/71 93 03/27/20 07:14 36.6 C 82 18 103/70 95 03/27/20 03:09 36.9 C 81 17 95/73 L 91 Laboratory Results Short CBC 03/27/20 Range/Units 07:01 WBC 7.86 (4.8-10.8) K/uL Hgb 17.3 H (12.0-16.0) g/dL Hct 51.4 H (37-47) % Plt Count 240 (130-400) K/uL BMP 03/27/20 07:01 Sodium 138 Potassium 4.6 D Chloride 98 Carbon Dioxide 35 H BUN 18 Creatinine 0.93 Glucose 122 H Calcium 9.3 Liver Function 03/27/20 Range/Units 07:01 Total Bilirubin 0.9 (0.2-1) mg/dl AST 43 H (15-37) U/L ALT 87 H (12-78) U/L Alkaline Phosphatase 76 (45-117) U/L Albumin 3.3 L (3.4-5.0) gm/dl Medications Administered Current Inpatient Medications Amiodarone HCl (Cordarone) 200 mg PO BIDM [facility] Stop: 04/25/20 16:59 Last Admin: 03/27/20 07:49 Dose: 200 mg Documented by: Clonazepam (Klonopin) 0.5 mg PO BID [facility] Stop: 04/21/20 20:59 Last Admin: 03/27/20 07:54 Dose: 0.5 mg Documented by: Duloxetine HCl (Cymbalta) 20 mg PO DAILY MELLISSA Stop: 04/22/20 08:59 Last Admin: 03/27/20 08:55 Dose: 20 mg Documented by: Gabapentin (Neurontin) 600 mg PO TID [facility] Stop: 04/21/20 20:59 Last Admin: 03/27/20 12:51 Dose: 600 mg Documented by: Furosemide 40 mg/ Syringe 4 mls @ 4 mls/min IV [id number] MELLISSA Stop: 04/22/20 08:59 Last Admin: 03/27/20 07:50 Dose: 4 mls/min Documented by: Heparin Sodium/Dextrose (Heparin Sodium/Dextrose) 25,000 units in 500 mls @ 15 mls/hr IV .Q24H [facility]; Protocol Stop: 04/23/20 10:44 Last Admin: 03/27/20 11:19 Dose: Not Given Documented by: Levalbuterol HCl (Xopenex Hfa) 2 puffs INH QID PRN; Protocol PRN Reason: Wheezing Stop: 04/21/20 19:39 Lorazepam (Ativan) 0.5 mg PO Q8H PRN PRN Reason: Anxiety Stop: 04/21/20 21:53 Metoprolol Tartrate (Lopressor) 5 mg IV Q4 PRN PRN Reason: HR > 110 Stop: 04/21/20 19:39 Last Admin: 03/23/20 08:14 Dose: 2.5 mg Documented by: Metoprolol Tartrate (Lopressor) 25 mg PO QID [facility] Stop: 04/24/20 12:59 Last Admin: 03/27/20 12:50 Dose: 25 mg Documented by: Potassium Chloride (Klor-Con M20) 20 meq PO BID [facility] Stop: 04/25/20 08:59 Last Admin: 03/27/20 08:02 Dose: Not Given Documented by: Spironolactone (Aldactone) 12.5 mg PO DAILY [facility] Stop: 04/24/20 10:14 Last Admin: 03/27/20 07:50 Dose: 12.5 mg Documented by: Valacyclovir HCl (Valtrex) 500 mg PO DAILY [facility] Stop: 04/02/20 08:59 Last Admin: 03/27/20 07:51 Dose: 500 mg Documented by: Warfarin Sodium (Coumadin) 5 mg PO DAILY@1600 [facility] Stop: 04/26/20 15:59
[2020-03-27] MEDS ORDERED: WARFARIN SOD 5 MG TAB PO SCH (16:00)
[2020-03-28 06:34] LABS: INR 1.6 (0.9-1.1); Partial Thromboplastin Ratio 2.4; Prothrombin Time 16.5 Seconds (9.0-12.0)
[2020-03-28 06:39] LABS: BUN Creatinine Ratio 18.9 (10-20); Calcium 9.6 mg/dl (8.5-10.1); Creatinine Clr Calc Pharmacy 60.6 ml/min; Est GFR (African American) 91.3; Est GFR (Non-African American) 78.8; Potassium 4.5 mmol/L (3.5-5.1)
[2020-03-28 06:42] LABS: Bilirubin,Total 0.6 mg/dl (0.2-1); Globulin 3.2 gm/dl (2.5-4.0); Total Protein 6.2 gm/dl (6.4-8.2)
[2020-03-28] MEDS: AMIODARONE 200 MG TAB PO SCH ×2 (08:30→17:42)
[2020-03-28] MEDS: VALACYCLOVIR HCL 500 MG TABLET PO SCH (09:05)
[2020-03-28] MEDS: GABAPENTIN 600 MG TAB PO SCH ×3 (09:05→21:05)
[2020-03-28] MEDS: DULOXETINE HCL 20 MG CAP PO SCH (09:05)
[2020-03-28] MEDS: METOPROLOL TARTRATE 25 MG TAB PO SCH ×4 (09:06→21:05)
[2020-03-28] MEDS: SPIRONOLACTONE 12.5 MG TAB PO SCH (09:06)
[2020-03-28] MEDS: FUROSEMIDE 40 MG in SYRINGE 0 ML IV SCH ×2 (09:07→09:54)
[2020-03-28] MEDS: clonazePAM 0.5 MG TAB PO SCH ×2 (09:13→21:04)
--- NOTE | 2020-03-28 11:23 | Cardiology Progress Note ---
Date of Service March 28, 2020 Assessment & Plan (1) Acute HFrEF (heart failure with reduced ejection fraction): Volume status continues to improve. Chest x-ray performed yesterday 03/27/2020 revealed improvement in the previous pulmonary edema pattern, with trace to small bilateral residual pleural effusions noted. IV furosemide reduced from 40 mg twice daily yesterday to 40 mg daily. Continue this dose for now. Potassium has normalized. We will discontinue potassium chloride supplement, continue low-dose spironolactone. Recommend transesophageal echocardiogram guided direct-current cardioversion with hopes that maintaining sinus rhythm will help improve her left ventricular systolic function. (2) A-fib: Continue metoprolol tartrate 25 mg every 6 hours. Continue amiodarone 200 mg twice daily. AST/ ALT levels have nomalized. INR was above goal earlier in stay prompting administration of vitamin K. Now INR remains below goal an 1.6. Increase coumadin to 7.5 mg daily. Continue heparin bridge. Given low INR will need ARNAUD for risk assessment prior to cardioversion. Informed consent for ARNAUD and CV obtained. Anesthesia consult placed. NPO after MN , for procedure tomorrow am. (3) Mitral regurgitation: At least moderate MR. Plan to quantitate with ARNAUD. (4) Transaminitis: Likely due to CHF, now normal. 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 She states that she is continued to feel better. At rest, in bed, atrial fibrillation in the upper 90 bpm range noted, but with minimal activity such as eating her morning meal, her ventricular rates increased to the 120 to 140 bpm range. She is relatively asymptomatic from a palpitation standpoint and does not feel it when her heart rate is elevated. Blood pressure still remains on the lower side, with systolic readings in the 90s to low 100s. Review of Systems Review of Systems: All systems reviewed & are unremarkable except as noted in HPI & below Physical Exam Physical Exam: Temp Pulse Resp BP Pulse Ox 36.6 C 91 H 17 103/66 92 03/28/20 10:58 03/28/20 10:58 03/28/20 10:58 03/28/20 10:58 03/28/20 10:58 Constitutional: WD/WN, vitals as above Respiratory: Mildly decreased breath sounds in the bases otherwise clear Cardiovascular: Rate/Rhythm: regular rhythm and + tachycardic Heart Sounds: + murmur (I/ systolic murmur heard best at the apex) Vessels: no JVD Extremities: no edema Gastrointestinal (Abdomen): normal bowel sounds, soft, nontender, no hepatosplenomegaly Neurologic: PERRL, EOMI, accommodation nl, no face palsy, no dysarthria Results & Data Vital Signs (Past 12 Hours) Vital Signs Temp Pulse Resp BP Pulse Ox 03/28/20 10:58 36.6 C 91 H 17 103/66 92 03/28/20 07:20 36.7 C 95 H 18 110/69 93 03/28/20 03:10 36.6 C 88 18 93/65 L 94 03/27/20 23:51 36.8 C 95 H 18 97/65 L 92 Laboratory Results Cardiac Enzymes 03/28/20 Range/Units 05:33 AST 33 (15-37) U/L Coagulation 03/27/20 03/28/20 Range/Units 13:46 05:33 PT 16.5 H (9.0-12.0) Seconds APTT 65.5 H* 67.0 H* (21.0-31.0) Seconds Comprehensive Metabolic Panel 03/28/20 Range/Units 05:33 Sodium 139 (136-145) mmol/L Potassium 4.5 (3.5-5.1) mmol/L Chloride 102 (98-107) mmol/L Carbon Dioxide 33 H (21-32) mmol/L BUN 15 (7-18) mg/dl Creatinine 0.77 (0.6-1.2) mg/dl Glucose 97 (70-99) mg/dl Calcium 9.6 (8.5-10.1) mg/dl AST 33 (15-37) U/L ALT 61 (12-78) U/L Alkaline Phosphatase 61 (45-117) U/L Total Protein 6.2 L (6.4-8.2) gm/dl Albumin 3.0 L (3.4-5.0) gm/dl Intake and Output 03/27/20 03/28/20 03/28/20 22:59 06:59 14:59 Intake Total 603.75 / 1445.80 231.25 / 1445.80 Balance 603.75 / 1445.80 231.25 / 1445.80 Intake: IV 113.75 / 365.80 181.25 / 365.80 HEPARIN SODIUM/DEXTROSE 25,000 113.75 / 365.80 181.25 / 365.80 units In 500 ml @ 750 UNITS/HR 15 mls/hr IV .Q24H [facility] Rx#: [id number] Oral 490 / 1080 50 / 1080 Other: # Unmeasured Voids 1 Weight 55.7 kg
[2020-03-28 13:37] LABS: Partial Thromboplastin Ratio 2.1
--- NOTE | 2020-03-28 15:05 | Communication Note ---
Date of Service: March 28, 2020 Patient with history of chronic anticoagulation ever since remote DVT/pulmonary embolism dating back to 2007. When she was subsequently diagnosed with paroxysmal atrial fibrillation she therefore remained on Coumadin. This hospital stay, she has been noted to have labile INR readings, with supratherapeutic INR initially prompting treatment with vitamin K, and now her INR has been below goal. Looking ahead, due to atrial fibrillation, and planned direct-current cardioversion with transesophageal echocardiogram guidance, optimize anticoagulation is recommended in order to minimize the risk of stroke. I researched her [id number] cost for Eliquis, and her [id number] costs estimated to be less than $4 / month. I discussed with her the benefits of Eliquis in terms of less blood work, and more time within the therapeutic range. Although she does have mitral valve disease, she has mitral regurgitation, and does not have a history of prosthetic heart valve placement or mitral stenosis, and therefore I think she is a good candidate for direct oral anticoagulant agent therapy. Her renal function is stable, and she is less than 80 years old. Therefore the the appropriate Eliquis dose for her would be 5 mg twice daily. Patient elects to transition to Eliquis. Plan: Discontinue Coumadin now. Discontinue heparin today, 03/28/2020 at 1800. First dose of Eliquis 5 mg 03/28/2020 at 1800. Second dose of Eliquis 03/29/2020 at 6 AM, in advance of ARNAUD CV. Discussed timing of medication changes with pharmacy.
[2020-03-28] MEDS ORDERED: WARFARIN SOD 7.5 MG TAB PO SCH (16:00)
[2020-03-28] MEDS: APIXABAN 5 MG TABLET PO SCH (17:41)
--- NOTE | 2020-03-28 18:22 | Anesthesiology Consultation ---
Date of Service March 28, 2020 Assessment & Plan (1) Encounter for pre-operative examination: Chart Review Chart Review: order entry initiated History Surgery Operation Date: 03/29/20 07:30 Proposed Procedures p Transesophageal Echo w/Anesthesia - Duncan Rain DO s Cardioversion Disc Pad Plate Filler w/Anesthesia - Duncan Rain DO Height/Weight Height: 5 ft 5 in Weight: 55.7 kg Allergies Allergy/AdvReac Type Severity Reaction Status Date / Time tetanus toxoid, adsorbed Allergy Severe Anaphylaxis Verified 03/27/20 17:10 meperidine Allergy Intermediate ITCHING Verified 03/22/20 16:53 morphine Allergy Intermediate Hives, Verified 03/22/20 16:53 itching levofloxacin [From Levaquin] Allergy Unknown Unknown Verified 03/22/20 16:53 tizanidine AdvReac Intermediate Tachycardia Verified 03/27/20 17:10 quetiapine AdvReac Mild Symptoms Verified 03/27/20 17:10 worsen risperidone AdvReac Mild Symptoms Verified 03/27/20 17:10 worsen Medications Home Medications Medication Instructions Recorded Confirmed Last Taken carisoprodol 350 mg PO TID PRN 03/22/20 03/22/20 Unknown clonazepam 0.5 mg PO BID 03/22/20 03/22/20 Unknown duloxetine 20 mg PO DAILY 03/22/20 03/22/20 Unknown gabapentin 600 mg PO TID 03/22/20 03/22/20 Unknown metoprolol succinate 12.5 mg PO BID 03/22/20 03/22/20 Unknown onabotulinumtoxinA [Botox] 155 unit IM DIRECTED 03/22/20 03/22/20 Unknown sumatriptan succinate 25 - 50 mg PO DIRECTED PRN MDD 03/22/20 03/22/20 Unknown 5 TABLETS/DAY valacyclovir 500 mg PO DAILY 03/22/20 03/22/20 Unknown warfarin 3.75 mg PO 2XWK 03/22/20 03/22/20 Unknown warfarin 7.5 mg PO 5XWK 03/22/20 03/22/20 Unknown Active Medications Generic Name Dose Route Start Last Admin Trade Name Freq PRN Reason Stop Dose Admin Amiodarone HCl 200 mg 03/26/20 17:00 03/28/20 17:42 Cordarone PO 04/25/20 16:59 200 mg BIDM MELLISSA Administration Apixaban 5 mg 03/28/20 18:00 03/28/20 17:41 Eliquis PO 04/27/20 17:59 5 mg BID@0600,1800 MELLISSA Administration Clonazepam 0.5 mg 03/22/20 21:00 03/28/20 09:13 Klonopin PO 04/21/20 20:59 0.5 mg BID MELLISSA Administration Duloxetine HCl 20 mg 03/23/20 09:00 03/28/20 09:05 Cymbalta PO 04/22/20 08:59 20 mg DAILY MELLISSA Administration Gabapentin 600 mg 03/22/20 21:00 03/28/20 14:01 Neurontin PO 04/21/20 20:59 600 mg TID MELLISSA Administration Furosemide 40 mg/ Syringe 4 mls @ 4 mls/min 03/28/20 09:00 03/28/20 09:54 IV 04/27/20 08:59 4 mls/min DAILY MELLISSA Administration Metoprolol Tartrate 25 mg 03/25/20 13:00 03/28/20 17:42 Lopressor PO 04/24/20 12:59 25 mg QID MELLISSA Administration Spironolactone 12.5 mg 03/25/20 10:15 03/28/20 09:06 Aldactone PO 04/24/20 10:14 12.5 mg DAILY MELLISSA Administration Valacyclovir HCl 500 mg 03/23/20 09:00 03/28/20 09:05 Valtrex PO 04/02/20 08:59 500 mg DAILY MELLISSA Administration Past Medical History Medical History Generalized anxiety disorder (Chronic) History of benign breast biopsy History of cervical dysplasia History of colon polyps History of herpes genitalis History of migraine Hx of skin cancer, basal cell Irritable bowel syndrome with diarrhea (Chronic) Osteoporosis Paroxysmal atrial fibrillation Paroxysmal supraventricular tachycardia Pulmonary embolism (Chronic) 2007, 2013 Recurrent major depression (Chronic) Past Family History Family History Father Hypertension Stroke Myocardial infarction Sister Hypertension Brother Hypertension Mother Atrial fibrillation Past Surgical History Surgical History S/P IVC filter (Chronic) Social History Smoking Status: Current every day smoker tobacco type: cigarettes Do You Dip or Chew Tobacco: No Hx Alcohol Use: No Hx Substance Use: No Physical Exam Vital Signs Last Vital Signs Temp 98.1 F 03/28/20 15:13 Pulse 90 03/28/20 15:13 Resp 18 03/28/20 15:13 BP 96/62 L 03/28/20 15:13 Pulse Ox 93 03/28/20 15:13 Testing Laboratory Results 03/27/20 07:01 03/28/20 05:33 PT 16.5 Seconds (9.0-12.0) H 03/28/20 05:33 INR 1.6 (0.9-1.1) H 03/28/20 05:33 APTT 58.0 Seconds (21.0-31.0) H* 03/28/20 12:59 Urine Color Yellow 03/23/20 12:43 Urine Appearance Clear (Clear) 03/23/20 12:43 Urine pH 5.0 (4.5-7.5) 03/23/20 12:43 Ur Specific Orwell 1.010 (1.000-1.030) 03/23/20 12:43 Urine Protein Negative (Negative) 03/23/20 12:43 Urine Glucose (UA) Negative (Negative) 03/23/20 12:43 Urine Ketones Negative (Negative) 03/23/20 12:43 Urine Nitrite Negative (Negative) 03/23/20 12:43 Ur Leukocyte Esterase Negative (Negative) 03/23/20 12:43 03/22/20 15:42 Aerobic Blood Culture - Final Blood No growth in Aerobic bottle after 5 days. Anaerobic Blood Culture - Final No growth in Anaerobic bottle after 5 days. 03/22/20 15:35 Aerobic Blood Culture - Final Blood No growth in Aerobic bottle after 5 days. Anaerobic Blood Culture - Final No growth in Anaerobic bottle after 5 days. 03/24/20 09:25 Escherichia coli Shiga Toxins Test - Final Stool Stool Culture - Final No Salmonella isolated, No Shigella isolated, No Campylobacter jejuni isolated. Electrocardiogram Date: 03/24/20 Atrial fibrillation with rapid ventricular response, rate 117 bpm Possible Old Lateral infarct (cited on or before 22-MAR-2020) Abnormal ECG When compared with ECG of 23-MAR-2020 08:20, Nonspecific T wave abnormality, worse in Anterior leads Confirmed by Tom Means ([id number]) on 03/24/2020 8:15:23 AM Chest X-Ray Date: 03/27/20 IMPRESSION: 1. Interval resolution of the previous identified pulmonary edema 2. Decreasing bilateral pleural effusions right larger than left 3. No evidence of lobar consolidation Echocardiogram Date: 03/23/20 Atrial fibrillation with RVR in range of 120 to 130 bpm was present during the echocardiogram LV is normal in size There is normal LV wall thickness There is severe global hypokinesis of the LV LV systolic function is severely reduced LV EF 25-30% RV is normal in size RV systolic function is moderately reduced LA is mildly dilated Mod to severe MR Dilated IVC with reduced collapsability with sniff indicates an elevated right atrial pressure of 15 mmHg Doppler findings do not suggest pulmonary hypertension A large right pleural effusion is visualized Compared to the prior study dated 03/19/2017, significant changes have occurred, with interval to severe LV systolic dysfunction, and mod to severe MR with an eccentric, posteriorly directed MR jet
--- NOTE | 2020-03-28 22:48 | Hospitalist Progress Note ---
Date of Service March 28, 2020 Assessment & Plan (1) Acute hypoxemic respiratory failure: Presented to ED with acute hypoxic respiratory failure. Chest x-ray showed bilateral pulmonary infiltrates- infection vs pulmonary edema. Required supplemental O2 + BiPAP to maintain oxygenation. COVID-19 ruled out. Echo showed low LVEF as discussed below. Hypoxia probably secondary to CHF. (2) Acute HFrEF (heart failure with reduced ejection fraction): Chest x-ray showed bilat infiltrates vs CHF. BNP elevated. Echo showed LVEF 25-30%. Received IV furosemide. Cardiology consulted. Strong that tachycardia-induced cardiomyopathy most likely. Improving with IV furosemide. BP's relatively low- titrate cardiovascular medications as tolerated. (3) Atrial fibrillation: Previous history of PAF. AF with RVR at time of presentation. Patient had been experiencing palpitations for months. ? now persistent AF. Metoprolol titrated to control rate. Started on amiodarone. Anticoagulation maintained. ARNAUD w tentative cardioversion scheduled. (4) Supratherapeutic INR: INR > 9 at time of admission. Elevated INR probably due to anorexia. No bleeding complications. Received vitamin K. (5) COVID-19 ruled out: Presented with reported fever & cough + respiratory distress + abnormal chest x- ray. SARS-CoV-2 PCR negative. (6) DVT prophylaxis: On warfarin for PE and PAF. INR supratherapeutic at time of admission. Started on IV heparin when INR subtherapeutic. Transitioning to apixaban. Ambulate. (7) Discharge planning issues: Anticipated discharge to home. Family Medicine follow-up with Dr. Leger. Cardiology follow-up with Dr. Gupta and Madisyn Sanchez PA-C. Admission and Anticipated Discharge Date Admission Date: March 22, 2020 Subjective Recheck for CHF, AF, and other problems. Patient seen in their room around 1010. Doing well. Less SOB; weaned off O2. No cough. No chest pain. Remains in AF. Ambulating in room, but not further. Review of Systems: Constitutional- no fever. Cardiac- as noted above. Pulmonary- as noted above. GI- no nausea, vomiting, diarrhea, melena, hematochezia. - no urinary symptoms. Otherwise, as noted above. Physical Exam Constitutional: no acute distress Respiratory: no respiratory distress Auscultation: + rales (few bibasilar) Cardiovascular: Rate/Rhythm: + irregularly irregular Heart Sounds: no gallop Vessels: no JVD Extremities: no calf tenderness and no edema Gastrointestinal (Abdomen): normal bowel sounds, soft, nontender, no hepatosplenomegaly Musculoskeletal: Extremities: no cyanosis Skin: no rashes, warm and dry Psychiatric: Orientation: alert and oriented x 3 Results & Data Results & Data ([facility]) Vital Signs (Past 12 Hours) Vital Signs Temp Pulse Resp BP Pulse Ox 03/28/20 19:17 36.6 C 82 18 115/61 96 03/28/20 15:13 36.7 C 90 18 96/62 L 93 03/28/20 10:58 36.6 C 91 H 17 103/66 92 Laboratory Results 03/27/20 07:01 03/28/20 05:33
[2020-03-29] MEDS: APIXABAN 5 MG TABLET PO SCH ×2 (05:44→17:05)
[2020-03-29 06:45] LABS: INR 1.4 (0.9-1.1); Prothrombin Time 14.7 Seconds (9.0-12.0)
[2020-03-29] MEDS ORDERED: PROPOFOL IV EMULSION 10 MG/ML 20 ML VIAL IV ONE (06:50)
[2020-03-29] MEDS ORDERED: LIDOCAINE HCL 2% 2 ML VIAL/AMP(20MG/ML) INFIL ONE (06:50)
[2020-03-29 07:05] LABS: BUN Creatinine Ratio 19.6 (10-20); Calcium 9.9 mg/dl (8.5-10.1); Creatinine Clr Calc Pharmacy 44.4 ml/min; Est GFR (African American) 65.8; Est GFR (Non-African American) 56.8; Potassium 5.1 mmol/L (3.5-5.1)
--- NOTE | 2020-03-29 07:19 | History & Physical Bridge Note ---
Date of Service March 29, 2020 History & Physical Bridge Note I have examined the patient, reviewed the History & Physical and in the interval since the performance of the History & Physical I have noted the following changes of clinical significance: no changes noted. Informed consent for ARNAUD and cardioversion obtained yesterday. Coagulation INR 03/29/20=1.4 03/28/20 03/29/20 Range/Units 12:59 05:51 PT 14.7 H (9.0-12.0) Seconds APTT 58.0 H* (21.0-31.0) Seconds Comprehensive Metabolic Panel 03/29/20 Range/Units 05:51 Sodium 142 (136-145) mmol/L Potassium 5.1 (3.5-5.1) mmol/L Chloride 102 (98-107) mmol/L Carbon Dioxide 34 H (21-32) mmol/L BUN 20 H (7-18) mg/dl Creatinine 1.01 (0.6-1.2) mg/dl Glucose 93 (70-99) mg/dl Calcium 9.9 (8.5-10.1) mg/dl Intake and Output 03/28/20 03/29/20 03/29/20 22:59 06:59 14:59 Intake Total 550.967 / 1200.967 150 / 1200.967 Balance 550.967 / 1200.967 150 / 1200.967 Intake: IV 150.967 / 150.967 HEPARIN SODIUM/DEXTROSE 25,000 150.967 / 150.967 units In 500 ml @ 700 UNITS/HR 14 mls/hr IV .Q24H [facility] Rx#: [id number] Oral 400 / 1050 150 / 1050 Other: Weight 55.7 kg 53.5 kg Heparin gtt discontinued last evening and patient transitioned to Eliquis. Received dose of Eliquis 03/28 17:41 and 03/29 at 5:44 am. Potassium mildly elevated. KCL discontinued yesterday. Will discontinue spironolactone now. Proceed with ARNAUD + CV .
--- NOTE | 2020-03-29 08:32 | Cardioversion ---
Date of Service March 29, 2020 Electrical Cardioversion Rpt Electrical Cardioversion Report Author: Duncan Rain DO Cardiology Brief Post Op Date of Surgery March 29, 2020 Pre & Post Diagnosis Operation Date: 03/29/20 07:30 Preprocedure diagnosis: cardiomyopathy, atrial fibrillation Post procedure diagnosis: severe LV systolic dysfunction, severe left atrial dilatation, no left atrial or left atrial appendage thrombus, moderate to severe mitral regurgitation , successful conversion to sinus rhythm Procedure Transesophageal echocardiogram guided direct-current cardioversion : After informed consent was obtained and a timeout was performed the patient was monitored in standard fashion including heart rate and rhythm, blood pressure, inhaled CO2, and pulse oximetry. Transesophageal echocardiogram revealed severe left atrial dilatation with resultant dilatation of the left atrial annulus, also tethering of the mitral valve leaflets noted to the left ventricular chamber dilatation, with resultant moderate to severe mitral regurgitation. There is no left atrial appendage or left atrial thrombus. The patient underwent direct-current cardioversion receiving a single dose of 200 J of biphasic energy with successful conversion from atrial fibrillation with rapid ventricular sponsors to sinus rhythm in the range of 60 to 70 bpm. The patient was sedated with the assistance of anesthesia receiving a total of 80 mg of IV propofol, 60 mg of IV lidocaine, and 100 mcg of Nadeem-Synephrine for blood pressure support. Nurse Chemical Dependency Duncan Rain DO Policy Loan Calculator Obdulia Triplett, FLAQUITA Estimated Blood Loss 0 Findings Consistent with Post-Op Diagnosis as above
--- NOTE | 2020-03-29 08:34 | Anesthesiology Progress Note ---
Date of Service March 29, 2020 Anesthesia Post Procedure Vital Signs Vital Signs: Temp Pulse Resp BP Pulse Ox 03/29/20 08:22 67 18 94/62 L 96 03/29/20 07:18 36.8 C 90 18 94/59 L 92 03/29/20 02:57 36.7 C 76 17 96/63 L 97 03/28/20 23:05 36.6 C 73 18 102/67 96 03/28/20 19:17 36.6 C 82 18 115/61 96 03/28/20 15:13 36.7 C 90 18 96/62 L 93 03/28/20 10:58 36.6 C 91 H 17 103/66 92 Pain Intensity Head: Pain Intensity: 0 Transfer of Care Handoff Completed per policy Notes Mental Status: alert / awake / arousable and participated in evaluation Patient Amnestic to Procedure: Yes Nausea / Vomiting: adequately controlled Pain: adequately controlled Airway Patency, RR, SpO2: stable & adequate BP & HR: stable & adequate Hydration State: stable & adequate Anesthetic Complications: no major complications apparent
[2020-03-29] MEDS: GABAPENTIN 600 MG TAB PO SCH ×3 (08:57→20:48)
[2020-03-29] MEDS: AMIODARONE 200 MG TAB PO SCH ×2 (08:57→17:05)
[2020-03-29] MEDS: DULOXETINE HCL 20 MG CAP PO SCH (08:57)
[2020-03-29] MEDS: VALACYCLOVIR HCL 500 MG TABLET PO SCH (08:57)
[2020-03-29] MEDS: clonazePAM 0.5 MG TAB PO SCH ×2 (09:00→20:48)
[2020-03-29] MEDS: METOPROLOL SUCC 25MG EXT REL TAB PO SCH (09:00)
--- NOTE | 2020-03-29 11:40 | Electrocardiogram Report ---
Test Reason : Blood Pressure : / mmHG Vent. Rate : 068 BPM Atrial Rate : 068 BPM P-R Int : 178 ms QRS Dur : 078 ms QT Int : 410 ms P-R-T Axes : 063 120 014 degrees QTc Int : 435 ms Normal sinus rhythm Possible Left atrial enlargement Possible Right ventricular hypertrophy Incomplete right bundle branch block Lateral infarct (cited on or before 23-MAR-2020) Abnormal ECG When compared with ECG of 24-MAR-2020 07:48, Sinus rhythm has replaced Atrial fibrillation Vent. rate has decreased BY 49 BPM Confirmed by Kraig Ring ([id number]) on 03/29/2020 11:39:27 AM Referred By: REFERRED SELF Confirmed By:Kevin Ring
--- NOTE | 2020-03-29 12:26 | Cardiology Progress Note ---
Date of Service March 29, 2020 Assessment & Plan (1) Acute HFrEF (heart failure with reduced ejection fraction): (2) Atrial fibrillation: (3) Mitral regurgitation: Post cardioversion EKG this am reveals SR at 68 bpm with lateral infarct pattern noted in leads I / aVL. Her presentation is consistent with atrial fibrillation with tachycardia induced cardiomyopathy. ARNAUD findings of moderate to severe mitral regurgitation that appears to be due to left atrial dilatation with dilation of the MV annulus and tethering of the mitral valve leaflets rather than due to mitral valve. prolapse. Therefor treatment of cardiomyopathy and maintaining sinus rhythm recommended. Rhythm control: amiodarone 200 mg twice daily. Transition to metoprolol succinate 25 mg daily. Continue Eliquis for stroke prevention. Not candidate for ACEI / ARB at present due to low BP , but will plan to add in future as tolerated. CAD is certainly a consideration. No evidence of unstable angina. Will plan on pharm nuclear stress as outpatient in a few weeks. Remain in hospital today. Increase activity as tolerated. Subjective Pt seen in follow up in room 216 having undersong ARNAUD guied cardioversion this am. Remains in SR. Physical Exam Physical Exam: Temp Pulse Resp BP Pulse Ox 36.7 C 78 18 116/69 96 03/29/20 11:09 03/29/20 11:09 03/29/20 11:09 03/29/20 11:09 03/29/20 11:09 Constitutional: WD/WN, vitals as above Respiratory: normal respiratory effort, lungs clear to auscultation Cardiovascular: Rate/Rhythm: regular rhythm Heart Sounds: + murmur (1/6 SM) Vessels: no JVD Extremities: no edema Gastrointestinal (Abdomen): normal bowel sounds, soft, nontender, no hepat osplenomegaly Neurologic: PERRL, EOMI, accommodation nl, no face palsy, no dysarthria Results & Data Vital Signs (Past 12 Hours) Vital Signs Temp Pulse Resp BP Pulse Ox 03/29/20 11:09 36.7 C 78 18 116/69 96 03/29/20 09:23 36.5 C 62 20 125/67 96 03/29/20 08:58 36.3 C L 70 18 92/58 L 92 03/29/20 08:37 67 18 95/65 L 96 03/29/20 08:22 67 18 94/62 L 96 03/29/20 07:18 36.8 C 90 18 94/59 L 92 03/29/20 02:57 36.7 C 76 17 96/63 L 97
--- NOTE | 2020-03-29 23:07 | Hospitalist Progress Note ---
Date of Service March 29, 2020 Assessment & Plan (1) Acute hypoxemic respiratory failure: Presented to ED with acute hypoxic respiratory failure. Chest x-ray showed bilateral pulmonary infiltrates- infection vs pulmonary edema. Required supplemental O2 + BiPAP to maintain oxygenation. COVID-19 ruled out. Echo showed low LVEF as discussed below. Hypoxia probably secondary to CHF. (2) Acute HFrEF (heart failure with reduced ejection fraction): Chest x-ray showed bilat infiltrates vs CHF. BNP elevated. Echo showed LVEF 25-30%. Received IV furosemide. Cardiology consulted. [place] that tachycardia-induced cardiomyopathy most likely. Improved with IV furosemide. BP's relatively low- titrate cardiovascular medications as tolerated. Receiving metoprolol succinate. Titrate diuretics. No ISI or ARB at this time due hypotension and hyperkalemia. (3) Atrial fibrillation: Previous history of PAF. AF with RVR at time of presentation. Patient had been experiencing palpitations for months. ? persistent AF. Metoprolol titrated to control rate. Started on amiodarone. Anticoagulation maintained. ARNAUD w successful cardioversion this morning. Continue metoprolol succinate and amiodarone. Anticoagulation transitioned to apixaban. (4) Supratherapeutic INR: INR > 9 at time of admission. Elevated INR probably due to anorexia. No bleeding complications. Received vitamin K. (5) COVID-19 ruled out: Presented with reported fever & cough + respiratory distress + abnormal chest x- ray. SARS-CoV-2 PCR negative. (6) DVT prophylaxis: On warfarin for PE and PAF. INR supratherapeutic at time of admission. Started on IV heparin when INR subtherapeutic. Transitioning to apixaban. Ambulate. (7) Discharge planning issues: Anticipated discharge to home. Family Medicine follow-up with Dr. Leger. Cardiology follow-up with Dr. Gupta and Madisyn Sanchez PA-C. Admission and Anticipated Discharge Date Admission Date: March 22, 2020 Subjective Recheck for CHF, AF, and other problems. Patient seen in their room around 1140. ARNAUD & cardioversion performed this morning with conversion to SR. Feels well. No CP, SOB, palpitations. Review of Systems: Constitutional- no fever. Cardiac- as noted above. Pulmonary- as noted above. GI- no nausea, vomiting, diarrhea, melena, hematochezia. - no urinary symptoms. Otherwise, as noted above. Physical Exam Constitutional: WD/WN, vitals as above no acute distress Respiratory: no respiratory distress Auscultation: + rales (few bibasilar) Cardiovascular: Rate/Rhythm: regular rate and regular rhythm Heart Sounds: no gallop Vessels: no JVD Extremities: no calf tenderness and no edema Gastrointestinal (Abdomen): normal bowel sounds, soft, nontender, no hepatosplenomegaly Musculoskeletal: Extremities: no cyanosis and no clubbing Skin: no rashes, warm and dry Psychiatric: Orientation: alert and oriented x 3 Results & Data Results & Data ([facility]) Vital Signs (Past 12 Hours) Vital Signs Temp Pulse Resp BP BP Pulse Ox 03/29/20 19:24 36.7 C 80 17 117/76 96 03/29/20 16:00 83 03/29/20 15:43 36.6 C 91 H 17 114/78 94 03/29/20 11:09 36.7 C 78 18 116/69 96 Laboratory Results Laboratory Results - last 24 hr 03/26/20 03/29/20 03/29/20 04:30 05:51 05:51 PT 14.7 H INR 1.4 H Sodium 142 Potassium 5.1 Chloride 102 Carbon Dioxide 34 H Anion Gap 6.0 BUN 20 H Creatinine 1.01 Est Cr Clr Drug Dosing 44.4 Est GFR ( Amer) 65.8 Est GFR (Non-Af Amer) 56.8 BUN/Creatinine Ratio 19.6 Glucose 93 Calcium 9.9 Tiss Transglutamin IgA 1
[2020-03-30 06:21] LABS: BUN Creatinine Ratio 19.8 (10-20); Calcium 8.9 mg/dl (8.5-10.1); Creatinine Clr Calc Pharmacy 67.3 ml/min; Est GFR (African American) 100.7; Est GFR (Non-African American) 86.9; Potassium 4.3 mmol/L (3.5-5.1)
[2020-03-30] MEDS: APIXABAN 5 MG TABLET PO SCH ×2 (06:30→17:47)
[2020-03-30] MEDS: Heparin Adult STANDARD Wt-Based Dextrose 5% 25,000 units/500 mL IV SCH (08:06)
[2020-03-30] MEDS: DULOXETINE HCL 20 MG CAP PO SCH (08:07)
[2020-03-30] MEDS: METOPROLOL SUCC 25MG EXT REL TAB PO SCH (08:07)
[2020-03-30] MEDS: AMIODARONE 200 MG TAB PO SCH (08:07)
[2020-03-30] MEDS: VALACYCLOVIR HCL 500 MG TABLET PO SCH (08:07)
[2020-03-30] MEDS: GABAPENTIN 600 MG TAB PO SCH ×3 (08:07→20:25)
[2020-03-30] MEDS: clonazePAM 0.5 MG TAB PO SCH ×2 (08:10→20:25)
[2020-03-30] MEDS: FUROSEMIDE 20 MG TAB PO SCH (08:25)
[2020-03-30] MEDS ORDERED: AMIODARONE / D5W 150 MG/100 ML BAG IV STA (09:25)
[2020-03-30] MEDS ORDERED: 0.2 MICRON FILTER SET 1 EA IV ONE (09:25)
[2020-03-30] MEDS ORDERED: AMIODARONE IV BOLUS & DRIP IV STA (09:25)
[2020-03-30] MEDS ORDERED: STAT IV Infusion **Titration per Protocol STA (09:25)
[2020-03-30] MEDS ORDERED: AMIODARONE / D5W 360 MG/200 ML BAG IV ONE (09:40)
[2020-03-30] MEDS ORDERED: ACETAMINOPHEN 500 MG TAB PO PRN (09:44)
[2020-03-30] MEDS ORDERED: CARISOPRODOL 350 MG TABLET PO PRN (09:44)
--- NOTE | 2020-03-30 09:52 | Anesthesiology Progress Note ---
Date of Service March 30, 2020 Anesthesia Post Procedure Vital Signs Vital Signs: Temp Pulse Resp BP BP Pulse Ox 03/30/20 08:00 151 H 03/30/20 07:18 36.6 C 70 20 107/68 94 03/30/20 03:41 36.7 C 80 16 114/71 95 03/29/20 23:30 36.7 C 73 18 111/72 93 03/29/20 19:24 36.7 C 80 17 117/76 96 03/29/20 16:00 83 03/29/20 15:43 36.6 C 91 H 17 114/78 94 03/29/20 11:09 36.7 C 78 18 116/69 96 Pain Intensity Head: Pain Intensity: 0 Notes Mental Status: alert / awake / arousable and participated in evaluation Nausea / Vomiting: adequately controlled Pain: adequately controlled Airway Patency, RR, SpO2: stable & adequate BP & HR: stable & adequate Hydration State: stable & adequate Anesthetic Complications: no major complications apparent and Pt Satisfied with anesthetic care
[2020-03-30] MEDS ORDERED: dilTIAZem HCl 5 MG/ML 5 ML VIAL IV STA (10:17)
--- NOTE | 2020-03-30 10:26 | Cardiology Progress Note ---
Date of Service March 30, 2020 Assessment & Plan (1) Acute HFrEF (heart failure with reduced ejection fraction): (2) Atrial fibrillation: (3) Mitral regurgitation: As noted patient is reverted to atrial fibrillation with rapid ventricular response having had undergone transesophageal echocardiogram guided direct- current cardioversion yesterday. Continue metoprolol and oral amiodarone. We will start an amiodarone infusion, and also add a bolus of IV diltiazem for rate and hopefully even rhythm control. She remains on Eliquis for stroke prophylaxis. She had been transitioned to furosemide 20 mg daily this morning. Spironolactone is on hold due to mild hyperkalemia. She is not on an ISI inhibitor or angiotensin receptor dayan due to relative low blood pressure. This is going to be reassessed on a daily basis. For now she needs to remain in the hospital. Looking ahead, plan for outpatient ischemic work-up with nuclear stress testing, and referral to EP to discuss pulmonary vein isolation ablation. Subjective Patient seen in follow up of AF, cardiomyopathy, systolic hear failure having undergone ARNAUD cardioversion on 03/29/20. Telemetry reveals that the patient maintain sinus rhythm yesterday and overnight last night, however reverted to atrial fibrillation with rapid ventricular response in the range of 130 bpm at rest this morning at 8:12 AM. She did not feel the change in this, but perhaps felt a headache, that I think is likely unrelated. Currently she is in no acute distress. She is disappointed because she is optimistic about being discharged today. Review of Systems Review of Systems: All systems reviewed & are unremarkable except as noted in HPI & below Physical Exam Physical Exam: Temp Pulse Resp BP Pulse Ox 36.6 C 151 H 20 107/68 94 03/30/20 07:18 03/30/20 08:00 03/30/20 07:18 03/30/20 07:18 03/30/20 07:18 Constitutional: WD/WN, vitals as above Respiratory: normal respiratory effort, lungs clear to auscultation Cardiovascular: Rate/Rhythm: + tachycardic and + irregularly irregular Heart Sounds: + murmur (1/6 SM) Vessels: no JVD Extremities: no edema Gastrointestinal (Abdomen): normal bowel sounds, soft, nontender, no hepatosplenomegaly Neurologic: PERRL, EOMI, accommodation nl, no face palsy, no dysarthria Results & Data Vital Signs (Past 12 Hours) Vital Signs Temp Pulse Resp BP BP Pulse Ox 03/30/20 08:00 151 H 03/30/20 07:18 36.6 C 70 20 107/68 94 03/30/20 03:41 36.7 C 80 16 114/71 95 03/29/20 23:30 36.7 C 73 18 111/72 93 Laboratory Results Comprehensive Metabolic Panel 03/30/20 Range/Units 05:15 Sodium 142 (136-145) mmol/L Potassium 4.3 D (3.5-5.1) mmol/L Chloride 107 (98-107) mmol/L Carbon Dioxide 30 (21-32) mmol/L BUN 14 (7-18) mg/dl Creatinine 0.71 D (0.6-1.2) mg/dl Glucose 90 (70-99) mg/dl Calcium 8.9 (8.5-10.1) mg/dl Intake and Output 03/29/20 03/30/20 03/30/20 22:59 06:59 14:59 Intake Total 700 / 1120 100 / 1120 100 / 100 Balance 700 / 1120 100 / 1120 100 / 100 Intake: IV 100 / 100 NEXTERONE / D5W 150 mg In 100 100 / 100 ml @ 600 mls/hr IV NOW STA Rx#: [id number] Oral 700 / 1120 100 / 1120 Other: # Unmeasured Voids 1 Weight 57.1 kg
[2020-03-30] MEDS: TRAMADOL HCL 50 MG TABLET PO PRN (11:39)
[2020-03-30] MEDS: AMIODARONE / D5W 360 MG/200 ML BAG IV SCH (16:04)
[2020-03-30] MEDS: METOPROLOL TARTRATE 25 MG TAB PO SCH ×2 (17:46→20:25)
--- NOTE | 2020-03-30 21:46 | Hospitalist Progress Note ---
Date of Service March 30, 2020 Assessment & Plan (1) Acute hypoxemic respiratory failure: Presented to ED with acute hypoxic respiratory failure. Chest x-ray showed bilateral pulmonary infiltrates- infection vs pulmonary edema. Required supplemental O2 + BiPAP to maintain oxygenation. COVID-19 ruled out. Echo showed low LVEF as discussed below. Hypoxia probably secondary to CHF. (2) Acute HFrEF (heart failure with reduced ejection fraction): Chest x-ray showed bilat infiltrates vs CHF. BNP elevated. Echo showed LVEF 25-30%. Received IV furosemide. Cardiology consulted. [place] that tachycardia-induced cardiomyopathy most likely. Improved with IV furosemide. BP's relatively low- titrate cardiovascular medications as tolerated. Receiving metoprolol succinate. Titrate diuretics. Received spironolactone, but had to be stopped due to hyperkalemia. No ISI or ARB at this time due hypotension and hyperkalemia. (3) Atrial fibrillation: Previous history of PAF. AF with RVR at time of presentation. Patient had been experiencing palpitations for months. ? persistent AF. Metoprolol titrated to control rate. Started on amiodarone. Anticoagulation maintained. ARNAUD w successful cardioversion 03/29, but back in AF today. Continue metoprolol succinate and amiodarone. Anticoagulation transitioned to apixaban. (4) Supratherapeutic INR: INR > 9 at time of admission. Elevated INR probably due to anorexia. No bleeding complications. Received vitamin K. (5) COVID-19 ruled out: Presented with reported fever & cough + respiratory distress + abnormal chest x- ray. SARS-CoV-2 PCR negative. (6) DVT prophylaxis: On warfarin for PE and PAF. INR supratherapeutic at time of admission. Started on IV heparin when INR subtherapeutic. Transitioned to apixaban. Ambulate. (7) Discharge planning issues: Anticipated discharge to home. Family Medicine follow-up with Dr. Leger. Cardiology follow-up with [facility] at [facility]. Admission and Anticipated Discharge Date Admission Date: March 22, 2020 Subjective Recheck for CHF, AF, and other problems. Patient seen in their room around 0920. Feels well except for migraine headache. No CP, SOB, ? palpitations. Ambulating. Cardiac telemetry demonstrated irregular tachycardia- AF vs flutter with variable conduction. Review of Systems: Constitutional- no fever. Cardiac- as noted above. Pulmonary- as noted above. GI- no nausea, vomiting, diarrhea, melena, hematochezia. - no urinary symptoms. Otherwise, as noted above. Physical Exam Constitutional: WD/WN, vitals as above no acute distress Respiratory: no respiratory distress Auscultation: + rales (few bibasilar) Cardiovascular: Rate/Rhythm: + irregularly irregular Heart Sounds: no gallop Vessels: no JVD Extremities: no calf tenderness and no edema Gastrointestinal (Abdomen): normal bowel sounds, soft, nontender, no hepatosplenomegaly Musculoskeletal: Extremities: no cyanosis Skin: no rashes, warm and dry Psychiatric: Orientation: alert and oriented x 3 Results & Data Results & Data ([facility]) Vital Signs (Past 12 Hours) Vital Signs Temp Pulse Resp BP Pulse Ox 03/30/20 20:18 36.6 C 81 18 99/75 L 94 03/30/20 16:00 80 03/30/20 15:38 36.2 C L 74 20 108/80 98 03/30/20 12:00 111 H 03/30/20 11:03 36.3 C L 78 18 95/56 L 96 Laboratory Results Laboratory Results - last 24 hr 03/30/20 03/30/20 05:15 05:15 Sodium 142 Potassium 4.3 D Chloride 107 Carbon Dioxide 30 Anion Gap 5.0 BUN 14 Creatinine 0.71 D Est Cr Clr Drug Dosing 67.3 Est GFR ( Amer) 100.7 Est GFR (Non-Af Amer) 86.9 BUN/Creatinine Ratio 19.8 Glucose 90 Calcium 8.9 Magnesium 2.0
[2020-03-31] MEDS: AMIODARONE / D5W 360 MG/200 ML BAG IV SCH ×2 (02:44→16:23)
[2020-03-31] MEDS: APIXABAN 5 MG TABLET PO SCH ×2 (06:24→16:24)
[2020-03-31 07:04] LABS: Hematocrit (blood only) 42.1 % (37-47); Hemoglobin 14.2 g/dL (12.0-16.0); Mean Corpuscular Hemoglobin 33.2 pg (25-34); Mean Corpuscular Hgb Conc 33.7 g/dL (32-36); Mean Corpuscular Volume 98.4 fL (80-100); Mean Platelet Volume 11.1 fL (7.4-10.4); Platelet Count 207 K/uL (130-400); RDW Coefficient of Variation 13.8 % (11.5-14.5); RDW Standard Deviation 49.6 fL (36.4-46.3); Red Blood Count 4.28 M/uL (4.2-5.4); White Blood Count 5.58 K/uL (4.8-10.8)
[2020-03-31 07:34] LABS: BUN Creatinine Ratio 24.7 (10-20); Calcium 8.8 mg/dl (8.5-10.1); Est GFR (African American) 97.4
[2020-03-31] MEDS: FUROSEMIDE 20 MG TAB PO SCH (08:24)
[2020-03-31] MEDS: VALACYCLOVIR HCL 500 MG TABLET PO SCH (08:24)
[2020-03-31] MEDS: DULOXETINE HCL 20 MG CAP PO SCH (08:24)
[2020-03-31] MEDS: METOPROLOL TARTRATE 25 MG TAB PO SCH ×3 (08:24→16:24)
[2020-03-31] MEDS: GABAPENTIN 600 MG TAB PO SCH ×3 (08:25→22:05)
[2020-03-31] MEDS: clonazePAM 0.5 MG TAB PO SCH ×2 (08:25→22:05)
--- NOTE | 2020-03-31 12:19 | Cardiology Progress Note ---
Date of Service March 31, 2020 Assessment & Plan (1) Acute HFrEF (heart failure with reduced ejection fraction): (2) Atrial fibrillation: (3) Mitral regurgitation: Patient underwent ARNAUD guide cardioversion on 03/29/20, however, she has since reverted to AF on 03/30. Currently she is on oral metoprolol. She is on oral and IV amiodarone with controlled ventricular response at rest in the 70s. I believe rhythm control strategy in is her best interest moving forward. Discussed proceeding with another trial of cardioversion now that she has had several more days of amiodarone. Patient agreeable. Will proceed today if schedule allows, if not will feed and proceed tomorrow. She remains on Eliquis without interuption. Subjective Patient seen in follow up of atrial fibrillation and CHF. Only complaint is headache, however, she has been NPO today. Physical Exam Physical Exam: Temp Pulse Resp BP Pulse Ox 36.4 C L 77 16 94/64 L 95 03/31/20 10:51 03/31/20 10:51 03/31/20 10:51 03/31/20 10:51 03/31/20 10:51 Constitutional: WD/WN, vitals as above Respiratory: normal respiratory effort, lungs clear to auscultation Cardiovascular: Rate/Rhythm: regular rhythm Heart Sounds: + murmur (I/ SM ) Vessels: no JVD Extremities: no edema Gastrointestinal (Abdomen): normal bowel sounds, soft, nontender, no hepatosplenomegaly Neurologic: PERRL, EOMI, accommodation nl, no face palsy, no dysarthria Results & Data Vital Signs (Past 12 Hours) Vital Signs Temp Pulse Resp BP BP Pulse Ox 03/31/20 10:51 36.4 C L 77 16 94/64 L 95 03/31/20 08:00 64 03/31/20 07:30 36.5 C 99 H 16 106/74 98 03/31/20 04:23 36.4 C L 73 18 97/71 L 95 Laboratory Results CBC 03/31/20 Range/Units 05:54 WBC 5.58 (4.8-10.8) K/uL RBC 4.28 (4.2-5.4) M/uL Hgb 14.2 (12.0-16.0) g/dL Hct 42.1 (37-47) % Plt Count 207 (130-400) K/uL Comprehensive Metabolic Panel 03/31/20 Range/Units 05:54 Sodium 140 (136-145) mmol/L Potassium 4.0 (3.5-5.1) mmol/L Chloride 106 (98-107) mmol/L Carbon Dioxide 28 (21-32) mmol/L BUN 18 (7-18) mg/dl Creatinine 0.73 (0.6-1.2) mg/dl Glucose 100 H (70-99) mg/dl Calcium 8.8 (8.5-10.1) mg/dl Intake and Output 03/30/20 03/31/20 03/31/20 22:59 06:59 14:59 Intake Total 700 / 1478.133 178.133 / 1478.133 Balance 700 / 1478.133 178.133 / 1478.133 Intake: IV 200 / 478.133 178.133 / 478.133 NEXTERONE / D5W 360 mg In 200 200 / 378.133 178.133 / 378.133 ml @ 0.5 MG/MIN 16.667 mls/hr IV .Q12H MELLISSA Rx#:[id number] Oral 500 / 1000 Other: # Unmeasured Voids 1 Weight 56.6 kg
[2020-03-31] MEDS ORDERED: AMIODARONE 200 MG TAB PO ONE (13:15)
[2020-03-31] MEDS: TRAMADOL HCL 50 MG TABLET PO PRN (14:05)
[2020-03-31] MEDS: AMIODARONE 200 MG TAB PO SCH (16:24)
--- NOTE | 2020-03-31 17:35 | Electrocardiogram Report ---
Test Reason : Blood Pressure : / mmHG Vent. Rate : 098 BPM Atrial Rate : 196 BPM P-R Int : 000 ms QRS Dur : 084 ms QT Int : 280 ms P-R-T Axes : 109 137 102 degrees QTc Int : 357 ms Suspect arm lead reversal, interpretation assumes no reversal Atrial flutter with 2:1 A-V conduction Possible Right ventricular hypertrophy Lateral infarct (cited on or before 23-MAR-2020) Abnormal ECG When compared with ECG of 29-MAR-2020 08:21, Significant changes have occurred Confirmed by Kraig Ring ([id number]) on 03/31/2020 5:34:38 PM Referred By: REFERRED SELF Confirmed By:Kevin Ring
--- NOTE | 2020-03-31 23:15 | Hospitalist Progress Note ---
Date of Service March 31, 2020 Assessment & Plan (1) Acute hypoxemic respiratory failure: Presented to ED with acute hypoxic respiratory failure. Chest x-ray showed bilateral pulmonary infiltrates- infection vs pulmonary edema. Required supplemental O2 + BiPAP to maintain oxygenation. COVID-19 ruled out. Echo showed low LVEF as discussed below. Hypoxia probably secondary to CHF. (2) Acute HFrEF (heart failure with reduced ejection fraction): Chest x-ray showed bilat infiltrates vs CHF. BNP elevated. Echo showed LVEF 25-30%. Received IV furosemide. Cardiology consulted. [place] that tachycardia-induced cardiomyopathy most likely. Improved with IV furosemide. BP's relatively low- titrate cardiovascular medications as tolerated. Receiving metoprolol succinate. Titrate diuretics. Received spironolactone, but had to be stopped due to hyperkalemia. No ISI or ARB at this time due hypotension and hyperkalemia. (3) Atrial fibrillation: Previous history of PAF. AF with RVR at time of presentation. Patient had been experiencing palpitations for months. ? persistent AF. Metoprolol titrated to control rate. Started on amiodarone. Anticoagulation maintained. ARNAUD w successful cardioversion 03/29, but recurrent atrial fib / flutter 03/30. Continue metoprolol succinate and amiodarone. Anticoagulation transitioned to apixaban. (4) Supratherapeutic INR: INR > 9 at time of admission. Elevated INR probably due to anorexia. No bleeding complications. Received vitamin K. (5) COVID-19 ruled out: Presented with reported fever & cough + respiratory distress + abnormal chest x- ray. SARS-CoV-2 PCR negative. (6) DVT prophylaxis: On warfarin for PE and PAF. INR supratherapeutic at time of admission. Started on IV heparin when INR subtherapeutic. Transitioned to apixaban. Ambulate. (7) Discharge planning issues: Anticipated discharge to home. Family Medicine follow-up with Dr. Leger. Cardiology follow-up with [facility] at [facility]. Admission and Anticipated Discharge Date Admission Date: March 22, 2020 Subjective Recheck for CHF, AF, and other problems. Patient seen in their room around 1430. Remains in atrial fib / flutter, but rate improved. Feels well except for migraine headache. Tramadol helps. No CP, SOB, palpitations. Ambulating. Review of Systems: Constitutional- no fever. Cardiac- as noted above. Pulmonary- as noted above. GI- no nausea, vomiting, diarrhea, melena, hematochezia. - no urinary symptoms. Otherwise, as noted above. Physical Exam Constitutional: WD/WN, vitals as above no acute distress Respiratory: no respiratory distress Auscultation: lungs clear to auscultation bilaterally Cardiovascular: Rate/Rhythm: regular rate and regular rhythm Heart Sounds: no gallop Vessels: no JVD Extremities: no calf tenderness and no edema Gastrointestinal (Abdomen): normal bowel sounds, soft, nontender, no hepatosplenomegaly Musculoskeletal: Head/Neck/Chest: neck supple Extremities: no cyanosis Skin: no rashes, warm and dry Psychiatric: Orientation: alert and oriented x 3 Results & Data Results & Data ([facility]) Vital Signs (Past 12 Hours) Vital Signs Temp Pulse Resp BP BP Pulse Ox 03/31/20 23:02 36.6 C 58 L 16 90/57 L 93 03/31/20 22:24 61 86/59 L 03/31/20 19:36 36.8 C 62 18 96/61 L 96 03/31/20 16:02 36.9 C 93 H 20 103/68 94 Laboratory Results 03/31/20 05:54 03/31/20 05:54
[2020-04-01] MEDS: AMIODARONE / D5W 360 MG/200 ML BAG IV SCH (00:48)
[2020-04-01] MEDS: METOPROLOL TARTRATE 25 MG TAB PO SCH (00:49)
[2020-04-01] MEDS: APIXABAN 5 MG TABLET PO SCH (06:09)
[2020-04-01 06:36] LABS: Hemoglobin 13.9 g/dL (12.0-16.0); Mean Corpuscular Hemoglobin 32.2 pg (25-34); Mean Corpuscular Hgb Conc 33.1 g/dL (32-36); Mean Corpuscular Volume 97.2 fL (80-100); Platelet Count 202 K/uL (130-400); RDW Coefficient of Variation 13.8 % (11.5-14.5); RDW Standard Deviation 49.1 fL (36.4-46.3); Red Blood Count 4.32 M/uL (4.2-5.4); White Blood Count 6.32 K/uL (4.8-10.8)
[2020-04-01 06:50] LABS: BUN Creatinine Ratio 26.5 (10-20); Calcium 8.7 mg/dl (8.5-10.1); Creatinine Clr Calc Pharmacy 51.6 ml/min; Est GFR (African American) 73.6; Est GFR (Non-African American) 63.5
[2020-04-01 06:53] LABS: Albumin Globulin Ratio 0.9 (0.9-2); Bilirubin,Total 0.3 mg/dl (0.2-1); Globulin 3.3 gm/dl (2.5-4.0); Total Protein 6.3 gm/dl (6.4-8.2)
--- NOTE | 2020-04-01 07:11 | Anesthesiology Consultation ---
Date of Service April 01, 2020 Assessment & Plan (1) Encounter for pre-operative examination: Chart Review Chart Review: Acceptable Risk for Surgery History Surgery Operation Date: 03/29/20 07:30 Proposed Procedures p Transesophageal Echo w/Anesthesia - Duncan Rain DO s Cardioversion Project Admin w/Anesthesia - Duncan Rain DO Operation Date: 04/01/20 07:15 Proposed Procedures p Cardioversion - Duncan Rain DO Height/Weight Height: 5 ft 5 in Weight: 56.6 kg Allergies Allergy/AdvReac Type Severity Reaction Status Date / Time tetanus toxoid, adsorbed Allergy Severe Anaphylaxis Verified 03/27/20 17:10 meperidine Allergy Intermediate ITCHING Verified 03/22/20 16:53 morphine Allergy Intermediate Hives, Verified 03/22/20 16:53 itching levofloxacin [From Levaquin] Allergy Unknown Unknown Verified 03/22/20 16:53 tizanidine AdvReac Intermediate Tachycardia Verified 03/27/20 17:10 quetiapine AdvReac Mild Symptoms Verified 03/27/20 17:10 worsen risperidone AdvReac Mild Symptoms Verified 03/27/20 17:10 worsen Medications Home Medications Medication Instructions Recorded Confirmed Last Taken carisoprodol 350 mg PO TID PRN 03/22/20 03/22/20 Unknown clonazepam 0.5 mg PO BID 03/22/20 03/22/20 Unknown duloxetine 20 mg PO DAILY 03/22/20 03/22/20 Unknown gabapentin 600 mg PO TID 03/22/20 03/22/20 Unknown metoprolol succinate 12.5 mg PO BID 03/22/20 03/22/20 Unknown onabotulinumtoxinA [Botox] 155 unit IM DIRECTED 03/22/20 03/22/20 Unknown sumatriptan succinate 25 - 50 mg PO DIRECTED PRN MDD 03/22/20 03/22/20 Unknown 5 TABLETS/DAY valacyclovir 500 mg PO DAILY 03/22/20 03/22/20 Unknown warfarin 3.75 mg PO 2XWK 03/22/20 03/22/20 Unknown warfarin 7.5 mg PO 5XWK 03/22/20 03/22/20 Unknown Active Medications Generic Name Dose Route Start Last Admin Trade Name Freq PRN Reason Stop Dose Admin Amiodarone HCl 200 mg 03/26/20 17:00 03/31/20 16:24 Cordarone PO 04/25/20 16:59 200 mg BIDM MELLISSA Administration Apixaban 5 mg 03/28/20 18:00 04/01/20 06:09 Eliquis PO 04/27/20 17:59 5 mg BID@0600,1800 MELLISSA Administration Clonazepam 0.5 mg 03/22/20 21:00 03/31/20 22:05 Klonopin PO 04/21/20 20:59 0.5 mg BID MELLISSA Administration Duloxetine HCl 20 mg 03/23/20 09:00 03/31/20 08:24 Cymbalta PO 04/22/20 08:59 20 mg DAILY MELLISSA Administration Furosemide 20 mg 03/30/20 09:00 03/31/20 08:24 Lasix PO 04/29/20 08:59 20 mg QAM MELLISSA Administration Gabapentin 600 mg 03/22/20 21:00 03/31/20 22:05 Neurontin PO 04/21/20 20:59 600 mg TID MELLISSA Administration Amiodarone HCl/Dextrose 360 mg in 200 mls @ 16.667 mls/hr 03/30/20 15:40 04/01/20 00:48 Nexterone / D5w IV 04/29/20 15:39 0.5 mg/min .Q12H MELLISSA 16.7 mls/hr Administration 0.5 MG/MIN Metoprolol Tartrate 25 mg 03/30/20 17:00 04/01/20 00:49 Lopressor PO 04/29/20 16:59 Not Given QID MELLISSA Tramadol HCl 50 mg 03/30/20 09:44 03/31/20 14:05 Ultram PO 04/29/20 09:43 50 mg Q6H PRN Administration Severe Pain Valacyclovir HCl 500 mg 03/23/20 09:00 03/31/20 08:24 Valtrex PO 04/02/20 08:59 500 mg DAILY MELLISSA Administration NPO Date Last Intake of Fluids: 03/29/20 Time Last Intake of Fluids: 06:00 ("sips with meds") Date Last Intake of Solids: 03/28/20 Time Last Intake of Solids: 09:00 Past Medical History Medical History (Updated 04/01/20 @ 07:10 by Ricardo Lawson MD) Acute HFrEF (heart failure with reduced ejection fraction) EF 25-30% Generalized anxiety disorder (Chronic) History of benign breast biopsy History of cervical dysplasia History of colon polyps History of herpes genitalis History of migraine History of pulmonary embolism Hx of skin cancer, basal cell Irritable bowel syndrome with diarrhea (Chronic) Mitral regurgitation Mod to sev Osteoporosis Paroxysmal atrial fibrillation Paroxysmal supraventricular tachycardia Pulmonary embolism (Chronic) 2007, 2013 Recurrent major depression (Chronic) Exercise / Class Metabolic Activity III < 4 Walking/Shop/Light housework Past Family History Family History Father Hypertension Stroke Myocardial infarction Sister Hypertension Brother Hypertension Mother Atrial fibrillation Past Surgical History Surgical History S/P IVC filter (Chronic) Social History Smoking Status: Current every day smoker tobacco type: cigarettes Do You Dip or Chew Tobacco: No Hx Alcohol Use: No Hx Substance Use: No substance use type: does not use Physical Exam Vital Signs Last Vital Signs Temp 36.7 C 04/01/20 03:38 Pulse 63 04/01/20 03:38 Resp 17 04/01/20 03:38 BP 97/65 L 04/01/20 03:38 Pulse Ox 96 04/01/20 03:38 Testing Laboratory Results 04/01/20 05:47 04/01/20 05:47 PT 14.7 Seconds (9.0-12.0) H 03/29/20 05:51 INR 1.4 (0.9-1.1) H 03/29/20 05:51 APTT 58.0 Seconds (21.0-31.0) H* 03/28/20 12:59 Urine Color Yellow 03/23/20 12:43 Urine Appearance Clear (Clear) 03/23/20 12:43 Urine pH 5.0 (4.5-7.5) 03/23/20 12:43 Ur Specific Hope 1.010 (1.000-1.030) 03/23/20 12:43 Urine Protein Negative (Negative) 03/23/20 12:43 Urine Glucose (UA) Negative (Negative) 03/23/20 12:43 Urine Ketones Negative (Negative) 03/23/20 12:43 Urine Nitrite Negative (Negative) 03/23/20 12:43 Ur Leukocyte Esterase Negative (Negative) 03/23/20 12:43 03/22/20 15:42 Aerobic Blood Culture - Final Blood No growth in Aerobic bottle after 5 days. Anaerobic Blood Culture - Final No growth in Anaerobic bottle after 5 days. 03/22/20 15:35 Aerobic Blood Culture - Final Blood No growth in Aerobic bottle after 5 days. Anaerobic Blood Culture - Final No growth in Anaerobic bottle after 5 days. 03/24/20 09:25 Escherichia coli Shiga Toxins Test - Final Stool Stool Culture - Final No Salmonella isolated, No Shigella isolated, No Campylobacter jejuni isolated.
[2020-04-01] MEDS ORDERED: METOPROLOL SUCC 50MG EXT REL TAB PO STA (07:13)
[2020-04-01] MEDS ORDERED: PROPOFOL IV EMULSION 10 MG/ML 20 ML VIAL IV ONE (07:15)
--- NOTE | 2020-04-01 07:18 | Cardiology Progress Note ---
Date of Service April 01, 2020 Assessment & Plan (1) Acute HFrEF (heart failure with reduced ejection fraction): (2) Atrial fibrillation: (3) Mitral regurgitation: ARNAUD guided cardioversion had taken place on 03/29 with successful conversion to SR, however on 03/30 she reverted back to AF. Repeat cardioversion after interim IV amiodarone loading was planned for this am , however patient has spontaneously converted to sinus rhythm overnight on 03/31/20 at 19:15. Telemetry reviewed SR in the 60s overnight. EKG this am, 04/01, reviewed independently with normal sinus rhythm, left atrial enlargement, non specific T wave flattening in inferior leads. QTc stable 458 ms. Rhythm control: discontinue amiodarone infusion and metoprolol tartrate. Continue amiodarone 200 mg BID. Transition to metoprolol succinate 50 mg daily in am. Continue Eliquis for stroke prevention. Was previously on long wall mining machine tender coumadin for remote DVT /PE, prior to diagnosis of atrial fibrillation (paroxysmal AF first noted in 2009, 2016). On admission INR had been supra therapeutic promting administration of vitamin K this admission. Out of pocket cost of Eliquis < $4 / month as per my conversation with pt's outpt pharmacy. MR felt to be due to atrial fibrillation / cardiomyopathy with severe left atrial dilatation and resultant dilatation of the mitral valve annulus and tethering of the MV leaflets from LV chamber dilatation / dysfunction. Hopefully MR will improve with resolution of tachycardia. Patient not on an ACEI or ARB due to relative low BP . Candidacy for this will be reassessed as an outpatient. Continue furosemide 20 mg PO daily. Spironolactone discontinued due to hyperkalemia. Outpatient cardio follow up in 1-2 week. Future considerations: low intensity exercise / pharm nuclear stress in about 4 weeks as outpatient. EP consult for consideration of PVI ablation. Per review of EKGs although organized atrial activity noted, I do not believe this is right sided flutter. Follow up echo as outpt to reassess LVEF in 3 months or sooner. LVEF also to be assessed by Gated SPECT technique at time of nuclear stress. Cardiac medications at discharge: Eliquis 5 mg BID Metoprolol succinate 50 mg daily in am Amiodarone 200 mg BID. Furosemide 20 mg daily. Disposition: I have requested outpatient follow up visit with me in 1-2 weeks. I already contacted cardio clinic. 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 ARNAUD guided cardioversion had taken place on 03/29 with successful conversion to SR, however on 03/30 she reverted back to AF. Repeat cardioversion after interim IV amiodarone loading was planned for this am , however patient has spontaneously converted to sinus rhythm overnight. Review of Systems Review of Systems: All systems reviewed & are unremarkable except as noted in HPI & below Physical Exam Physical Exam: Temp Pulse Resp BP Pulse Ox 36.7 C 63 17 97/65 L 96 04/01/20 03:38 04/01/20 03:38 04/01/20 03:38 04/01/20 03:38 04/01/20 03:38 Constitutional: WD/WN, vitals as above Respiratory: normal respiratory effort, lungs clear to auscultation Cardiovascular: Rate/Rhythm: regular rhythm Heart Sounds: + murmur (I/ SM) Vessels: no JVD Extremities: no edema Gastrointestinal (Abdomen): normal bowel sounds, soft, nontender, no hepato splenomegaly Neurologic: PERRL, EOMI, accommodation nl, no face palsy, no dysarthria Results & Data Vital Signs (Past 12 Hours) Vital Signs Temp Pulse Pulse Resp BP BP Pulse Ox 04/01/20 03:38 36.7 C 63 17 97/65 L 96 04/01/20 00:00 62 03/31/20 23:02 36.6 C 58 L 16 90/57 L 93 03/31/20 22:24 61 86/59 L 03/31/20 19:36 36.8 C 62 18 96/61 L 96 Laboratory Results Cardiac Enzymes 04/01/20 Range/Units 05:47 AST 41 H (15-37) U/L CBC 04/01/20 Range/Units 05:47 WBC 6.32 (4.8-10.8) K/uL RBC 4.32 (4.2-5.4) M/uL Hgb 13.9 (12.0-16.0) g/dL Hct 42.0 (37-47) % Plt Count 202 (130-400) K/uL Comprehensive Metabolic Panel 03/31/20 04/01/20 Range/Units 05:54 05:47 Sodium 140 135 L (136-145) mmol/L Potassium 4.0 4.0 (3.5-5.1) mmol/L Chloride 106 103 (98-107) mmol/L Carbon Dioxide 28 27 (21-32) mmol/L BUN 18 24 H (7-18) mg/dl Creatinine 0.73 0.92 (0.6-1.2) mg/dl Glucose 100 H 101 H (70-99) mg/dl Calcium 8.8 8.7 (8.5-10.1) mg/dl AST 41 H (15-37) U/L ALT 50 (12-78) U/L Alkaline Phosphatase 56 (45-117) U/L Total Protein 6.3 L (6.4-8.2) gm/dl Albumin 3.0 L (3.4-5.0) gm/dl Intake and Output 03/31/20 04/01/20 04/01/20 22:59 06:59 14:59 Intake Total 560 / 1140.558 140.558 / 1140.558 Balance 560 / 1140.558 140.558 / 1140.558 Intake: IV 200 / 340.558 140.558 / 340.558 NEXTERONE / D5W 360 mg In 200 200 / 340.558 140.558 / 340.558 ml @ 0.5 MG/MIN 16.667 mls/hr IV .Q12H [facility], [facility]–1983 Rx#:[id number] Oral 360 / 800 Other: Other Intake Source NPO # Unmeasured Voids 1 Weight 56.6 kg 56.6 kg Patient Weight 04/02/20 06:59 Weight 56.6 kg
[2020-04-01] MEDS: AMIODARONE 200 MG TAB PO SCH (07:30)
[2020-04-01] MEDS ORDERED: FUROSEMIDE 20 MG in SYRINGE 0 ML IV STA (08:06)
[2020-04-01] MEDS: VALACYCLOVIR HCL 500 MG TABLET PO SCH (08:37)
[2020-04-01] MEDS: DULOXETINE HCL 20 MG CAP PO SCH (08:38)
[2020-04-01] MEDS: GABAPENTIN 600 MG TAB PO SCH (08:38)
[2020-04-01] MEDS: clonazePAM 0.5 MG TAB PO SCH (08:41)
[2020-04-01] MEDS: TRAMADOL HCL 50 MG TABLET PO PRN (10:25)
--- NOTE | 2020-04-01 12:02 | Hospitalist Progress Note ---
Date of Service April 01, 2020 Assessment & Plan (1) Acute hypoxemic respiratory failure: Presented to ED with acute hypoxic respiratory failure. Chest x-ray showed bilateral pulmonary infiltrates- infection vs pulmonary edema. Required supplemental O2 + BiPAP to maintain oxygenation. COVID-19 ruled out. Echo showed low LVEF as discussed below. Hypoxia probably secondary to CHF. Oxygenating well on RA by discharge. (2) Acute HFrEF (heart failure with reduced ejection fraction): Chest x-ray showed bilat infiltrates vs CHF. BNP elevated. Echo showed LVEF 25-30%. Received IV furosemide. Cardiology consulted. [place] that tachycardia-induced cardiomyopathy most likely. Improved with IV furosemide. BP's relatively low. Received spironolactone, but had to be stopped due to hyperkalemia. No ISI or ARB at this time due hypotension and hyperkalemia. Discharge on metoprolol succinate 50 mg daily, furosemide 20 mg daily. (3) Atrial fibrillation: Previous history of PAF. AF with RVR at time of presentation. Patient had been experiencing palpitations for months. ? persistent AF. Metoprolol titrated to control rate. Started on amiodarone. Anticoagulation maintained. ARNAUD w successful cardioversion 03/29, but recurrent atrial fib / flutter 03/30. Continue metoprolol succinate 50 mg daily and amiodarone 200 mg BID. Anticoagulation transitioned to apixaban. (4) Supratherapeutic INR: INR > 9 at time of admission. Elevated INR probably due to anorexia. No bleeding complications. Received vitamin K. (5) COVID-19 ruled out: Presented with reported fever & cough + respiratory distress + abnormal chest x- ray. SARS-CoV-2 PCR negative. (6) DVT prophylaxis: On warfarin for PE and PAF. INR supratherapeutic at time of admission. Started on IV heparin when INR subtherapeutic. Transitioned to apixaban. Ambulate. (7) Discharge planning issues: Discharge to home. Family Medicine follow-up with Dr. Leger. Cardiology follow-up with [facility] at [facility]. Admission and Anticipated Discharge Date Admission Date: March 22, 2020 Subjective Recheck for CHF, AF, and other problems. Patient seen in their room around 1140. Converted to SR last evening. Feels well except for typical migraine headache. Tramadol helps. No CP, SOB, palpitations. Ambulating. Ready to go home. Physical Exam Constitutional: WD/WN, vitals as above no acute distress Respiratory: no respiratory distress Auscultation: lungs clear to a uscultation bilaterally Cardiovascular: Rate/Rhythm: regular rate and regular rhythm Heart Sounds: no gallop Vessels: no JVD Extremities: no calf tenderness and no edema Gastrointestinal (Abdomen): normal bowel sounds, soft, nontender, no hepatosplenomegaly Musculoskeletal: Extremities: no cyanosis Skin: no rashes, warm and dry Psychiatric: Orientation: alert and oriented x 3 Results & Data Results & Data ([facility]) Vital Signs (Past 12 Hours) Vital Signs Temp Pulse Pulse Resp BP BP Pulse Ox 04/01/20 11:13 36.4 C L 67 18 116/86 90/57 L 95 04/01/20 07:26 59 L 04/01/20 07:24 36.4 C L 67 18 116/86 95 04/01/20 03:38 36.7 C 63 17 97/65 L 96 04/01/20 00:00 62 Laboratory Results 04/01/20 05:47 04/01/20 05:47
--- NOTE | 2020-04-01 12:31 | Discharge Summary ---
Date of Service Date of Admission: 03/22/20 Date of Discharge: 04/01/20 Admission HPI Per Admitting Provider 69 YO female followed by Dr. Leger for Family Medicine and Dr. Gupta for Cardiology. History of paroxysmal atrial fibrillation, paroxysmal supraventricular tachycardia, recurrent pulmonary emboli, and other problems as noted below. Experiencing intermittent palpitations over past few months. Noticed dyspnea and some dependent edema. Reluctant to go to clinic for evaluation because of COVID-19 pandemic. About 2 weeks ago she developed headache and rhinorrhea. Subsequently developed fever, chills, cough, malaise, myalgias, nausea, diarrhea, anosmia, dysgeusia. Cough initially nonproductive, later productive of yellow-green sputum with small amount of blood. No sick contacts. No travel. She has been very careful with social distancing. Continued to experiencing palpitations as well as worsening dyspnea on exertion. Noted intermittent mid-sternal chest pressure. No pleuritic chest pain. Tried albuterol MDI for SOB without improvement. Summoned EMS because of worsening symptoms. Received IV fluids en route to ED. Upon arrival to ED, she appeared to be in respiratory distress; also noted to be in AF with RVR. She received albuterol via MDI. Had paroxysm of coughing associated with cyanosis and worsening dyspnea / tachypnea. BiPAP applied with some improvement of her symptoms. Started on IV diltiazem infusion with improvement of ventricular rate. Other interventions in ED: IV NSS 500 ml bolus cefepime lorazepam dexamethasone By the time of my assessment in ED, patient felt better and was breathing comfortably with BiPAP. Principal Diagnosis acute hypoxic respiratory failure OTHER ACUTE / NEW DIAGNOSES acute left ventricular systolic heart failure atrial fibrillation with rapid ventricular response supratherapeutic INR Discharge Data Allergies Allergy/AdvReac Type Severity Reaction Status Date / Time tetanus toxoid, adsorbed Allergy Severe Anaphylaxis Verified 03/27/20 17:10 meperidine Allergy Intermediate ITCHING Verified 03/22/20 16:53 morphine Allergy Intermediate Hives, Verified 03/22/20 16:53 itching levofloxacin [From Levaquin] Allergy Unknown Unknown Verified 03/22/20 16:53 tizanidine AdvReac Intermediate Tachycardia Verified 03/27/20 17:10 quetiapine AdvReac Mild Symptoms Verified 03/27/20 17:10 worsen risperidone AdvReac Mild Symptoms Verified 03/27/20 17:10 worsen Consultations 03/22/20 17:05 ED Decision to Admit Stat 03/23/20 01:20 Consult Study Assistant Routine 03/23/20 08:00 Consult Cardiology Routine 03/23/20 10:00 Consult Pulmonology Routine 03/24/20 13:12 Consult Gastroenterology Routine 03/28/20 11:15 Consult Anesthesiology Routine 03/31/20 12:11 Consult Anesthesiology Routine Procedures Performed Operation Date: 03/29/20 07:30 Actual Procedures p Echo Transesophageal - DO janice Martinez Echo Doppler Complete - DO janice Martinez Echo Color Flow - DO janice Martinez Cardioversion - Duncan Rain DO Operation Date: 04/01/20 07:15 <No data on this case meets the specified criteria> Ordered Studies 03/23/20 09:00 US liver Routine Hospital Course (1) Acute hypoxemic respiratory failure: Presented to ED with acute hypoxic respiratory failure. Chest x-ray showed bilateral pulmonary infiltrates- infection vs pulmonary edema. Required supplemental O2 + BiPAP to maintain oxygenation. COVID-19 ruled out. Echo showed low LVEF as discussed below. Hypoxia probably secondary to CHF. Oxygenating well on RA by discharge. (2) Acute HFrEF (heart failure with reduced ejection fraction): Chest x-ray showed bilat infiltrates vs CHF. BNP elevated. Echo showed LVEF 25-30%. Received IV furosemide. Cardiology consulted. 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 Improved with IV furosemide. BP's relatively low. Received spironolactone, but had to be stopped due to hyperkalemia. No ISI or ARB at this time due hypotension and hyperkalemia. Discharge on metoprolol succinate 50 mg daily, furosemide 20 mg daily. (3) Atrial fibrillation: Previous history of PAF. AF with RVR at time of presentation. Patient had been experiencing palpitations for months. ? persistent AF. Metoprolol titrated to control rate. Started on amiodarone. Anticoagulation maintained. ARNAUD w successful cardioversion 03/29, but recurrent atrial fib / flutter 03/30. Repeat cardioversion was scheduled, but pt converted back to sinus rhythm the evening of 03/31. Continue metoprolol succinate 50 mg daily and amiodarone 200 mg BID. Anticoagulation transitioned to apixaban. (4) Supratherapeutic INR: INR > 9 at time of admission. Elevated INR probably due to anorexia. No bleeding complications. Received vitamin K. (5) COVID-19 ruled out: Presented with reported fever & cough + respiratory distress + abnormal chest x-ray. SARS-CoV-2 PCR negative. (6) DVT prophylaxis: On warfarin therapy for years for PE and PAF. INR supratherapeutic at time of admission. Started on IV heparin when INR subtherapeutic. Transitioned to apixaban. Ambulating. (7) Discharge planning issues: Discharged to home. Family Medicine follow-up with Dr. Leger. Cardiology follow-up with [facility] Cardiology Team at [facility]. Total Time Total Time Spent Total Time Spent (In Minutes): 40 Discharge Plan Discharge Items Patient Disposition: Home - Self-Care Reason For Visit: shortness of breath, weakness Discharge Diagnosis: congestive heart failure atrial fibrillation Condition on Discharge: Good Activity: As commented below Activity Comment: Gradually increase activity as tolerated. Non-emergency contact: Primary Care Provider, Hospitalist and Insurance Legal Assistant Call non-emergency contact if: you have any medication questions and your symptoms worsen Follow-up/Referrals: Duncan Rain DO [Insurance Legal Assistant] - (04/08/2020 2:00 PM Duncan Rain DO Cardiology, [facility]) Darrius Leger DO [Primary Care Provider] - 04/07/20 11:20 am (04/07/2020 11:20 AM Provider Darrius Leger DO Department Family Practice [facility] ) Diet: Heart Healthy Add Attending Provider Instructions: MEDICATION CHANGES: STOP warfarin (Coumadin) STOP sumatriptan (Imitrex) New medications: amiodarone (Cordarone) 200 mg twice a day for heart rhythm metoprolol succinate (Toprol XL) 50 mg daily for heart rhythm and congestive heart failure furosemide (Lasix) 20 mg daily for congestive heart failure apixaban (Eliquis) 5 mg twice a day to prevent blood clots magnesium oxide 400 mg daily to help regulate heart rhythm tramadol (Ultram) 50 mg twice a day as needed for migraine headaches or other pain SUMMARY OF TEST RESULTS: COVID-19 test was negative 03/22/20 OTHER INSTRUCTIONS: Please do not smoke. Smoking is bad for your heart, lungs, brain, and blood vessels. Avoid certain stimulants that might cause atrial fibrillation: caffeine excessive alcohol (more than 1 drink a day) nicotine certain cold and allergy medications that contain decongestants (check with your pharmacist) Seek medical attention if you have: * temperature above 101 * chest pain or trouble breathing * abdominal pain, nausea, vomiting * diarrhea, dark stools or bloody stools * unusual bleeding or bruising * unusually severe headache not relieved by medications * any unanswered questions or concerns Call 911 if symptoms are severe. Please take good care of yourself. Call if you have any questions or problems. You can reach a [facility] hospitalist on duty at [facility] 24 hours a day by calling [phone]. My cell # is [phone]. INSTRUCTIONS FOR CONGESTIVE HEART FAILURE: Call 911 and go to the Emergency Room if: * You have tightness or pain in your chest that does not go away with rest or Nitroglycerin * You are very short of breath even with rest Call your doctor if any of the following symptoms or problems start or get worse: * Shortness of breath or difficulty breathing * Wake up at night short of breath * Chest pain * Cough * Swelling of your hands, fee, or legs * More fatigued or tired with your normal activity * Palpitations - sudden fast heart beats WEIGHT * Weigh yourself every morning after using the bathroom. * Use the same scale. * Wear the same amount of clothing. * Write your weight down on your chart. * Call your doctor if you gain more than 2-3 pounds in 1-2 days. MEDICATIONS * Use this discharge instruction sheet for instructions. * Take your medications at the time your doctor ordered. * Do not skip a dose of your medicines. * If you miss a dose of medicine, take as soon as possible, but DO NOT DOUBLE A DOSE. * Read your medicine information when you get home. * Know all of the side effects of your medicine. * Call your doctor's office if you have any side effects. * Be sure all of your doctors know what medicine and herbs you take (including cold, flu, and herbal medicine). * Pain Medicine: If you do not get relief from your pain, please call your doctor for help. Take the following with you to your follow-up doctor appointments: * Weight Chart * Medication List * List of questions Do not drink excessive alcohol, beer or wine. Pending Studies at Discharge: No Stand-Alone Forms: My [facility], Smoking Cessation Medications and DC Order Prescriptions: New metoprolol succinate 50 mg tablet extended release 24 hr 50 mg PO DAILY Qty: 30 RF: 5 amiodarone 200 mg tablet 200 mg PO BID Qty: 60 RF: 5 furosemide 20 mg tablet 20 mg PO DAILY Qty: 30 RF: 5 Eliquis 5 mg tablet 5 mg PO BID Qty: 60 RF: 5 magnesium oxide 400 mg (241.3 mg magnesium) tablet 400 mg PO DAILY Qty: 30 RF: 5 tramadol 50 mg tablet 50 mg PO BID PRN (Reason: severe headache or other pain) Qty: 10 RF: 0 Continued carisoprodol 350 mg tablet 350 mg PO TID PRN (Reason: Muscle Spasm) RF: 0 gabapentin 600 mg tablet 600 mg PO TID RF: 0 clonazepam 0.5 mg tablet 0.5 mg PO BID RF: 0 valacyclovir 500 mg tablet 500 mg PO DAILY RF: 0 duloxetine 20 mg capsule,delayed release(DR/EC) 20 mg PO DAILY RF: 0 Botox 200 unit recon soln 155 unit IM DIRECTED RF: 0 Discontinued warfarin 7.5 mg tablet 3.75 mg PO 2XWK RF: 0 warfarin 7.5 mg tablet 7.5 mg PO 5XWK RF: 0 metoprolol succinate 25 mg tablet extended release 24 hr 12.5 mg PO BID RF: 0 sumatriptan succinate 25 mg tablet 25 - 50 mg PO DIRECTED MDD 5 TABLETS/DAY PRN (Reason: Migraine Headache) RF: 0 Discharge Orders: Discharge Order (Routine); Ordered 04/01/20 Ordered By: Acosta Salcedo Admission Data Admit Date/Time: 03/22/20 17:47 Attending Provider: Acosta Salcedo Admit Provider: Acosta Salcedo Primary Care Provider: Darrius Leger Other Providers: Ilir Pelayo ; Evie Kay ; Edin Michelle ; Kendall Gonzalez ; Satish Mazariegos ; Peter Womack Other Interventions: Discharge Summary Assessment (RN) Last Done: 04/01/20 11:13 DC Date/Time DO NOT enter until pt leaves facility: 04/01/20 13:14
--- NOTE | 2020-04-01 13:32 | Electrocardiogram Report ---
Test Reason : Blood Pressure : / mmHG Vent. Rate : 060 BPM Atrial Rate : 060 BPM P-R Int : 188 ms QRS Dur : 084 ms QT Int : 458 ms P-R-T Axes : 068 121 061 degrees QTc Int : 458 ms Normal sinus rhythm Possible Left atrial enlargement Right axis deviation Abnormal ECG When compared with ECG of 31-MAR-2020 13:55, Sinus rhythm has replaced Atrial flutter Vent. rate has decreased BY 38 BPM Nonspecific T wave abnormality now evident in Inferior leads QT has lengthened Confirmed by Kraig Ring ([id number] on 04/01/2020 1:32:20 PM Referred By: REFERRED SELF Confirmed By:Kevin Ring
[2020-04-02] MEDS ORDERED: METOPROLOL SUCC 50MG EXT REL TAB PO SCH (09:00)
[2020-04-02] MEDS ORDERED: FUROSEMIDE 20 MG TAB PO SCH (09:00)
== END 2020-04-01 13:14 | disposition home or self-care (01) | DRG 291 ==
LOC: ED 15:00 → 2S 17:47 → SUATTDRO 17:47 → 2S 18:18 → 1E 03-23 00:40 → 2S 03-26 15:40